=== PATIENT | male | born 1960 | race Caucasian/White ===

== ENCOUNTER → 2018-07-10 | Day surgery (SDC) | payer BC ==
[2018-07-08 12:16] LABS: BASOPHILS # (AUTO) 0.1 (0.0-0.1); BASOPHILS % 0.8 % (0.0-1.0); EOSINOPHILS # (AUTO) 0.1 (0.0-0.4); EOSINOPHILS % 1.3 % (0.0-6.0); HEMATOCRIT 43.2 % (38.2-49.6); HEMOGLOBIN 13.6 g/dL (14.0-18.0); LYMPHOCYTES % 32.6 % (18.0-39.1); MEAN CORPUSCULAR HEMOGLOBIN 28.5 pg (28-32); MEAN CORPUSCULAR HGB CONC 31.5 g/dL (31-35); MEAN CORPUSCULAR VOLUME 90.4 fL (81-99); MONOCYTES # (AUTO) 0.5 (0.2-0.8); MONOCYTES % 7.8 % (4.4-11.3); NEUTROPHILS # (AUTO) 3.4 (2.1-6.9); NEUTROPHILS % 57.2 % (38.7-80.0); PLATELET COUNT 227 x10e3/uL (140-360); RED BLOOD COUNT 4.78 x10e6/uL (4.3-5.7); RED CELL DISTRIBUTION WIDTH 15.1 % (11.7-14.4)
[2018-07-08 12:25] LABS: ANION GAP 16.6 mmol/L (8-16); BLOOD UREA NITROGEN 16 mg/dL (7-26); BUN/CREATININE RATIO 19 (6-25); CALCIUM 9.5 mg/dL (8.4-10.2); CARBON DIOXIDE 24 mmol/L (22-29); CHLORIDE 108 mmol/L (98-107); CREATININE, SERUM 0.86 mg/dL (0.72-1.25); EST GLOMERULAR FILTRATION RATE > 60 ML/MIN (60-); GLUCOSE 96 mg/dL (74-118); POTASSIUM 4.6 mmol/L (3.5-5.1); SODIUM 144 mmol/L (136-145)
[~2018-07-10] MED LIST: ASPIR 8181 MG PO; BELLADONNA/OPIUM 30 MG SUPP RC ONE; CALCIUM 500+D1 EACH PO; CEFTRIAXONE SOD 1 GM/NS 50 ML 50 ML IV ONE; DEXAMETHASONE SOD PHOS INJ 4 MG/ML VIAL ONE; DIGOXIN125 MCG PO; FENTANYL CITRATE/PF 100MCG/2 ML INJ ONE; FISH OIL 1,0001 EAC2 PO; FLOMAX0.4 MG PO; GLYCOPYRROLATE INJ 1MG/ 5 ML SYR ONE; IOPAMIDOL 610MG/1ML 300 MG/ML VIAL IV ONE; LIDOCAINE HCL 2% LOCAL INJ 5 ML SDV VIAL INJ ONE; METOPROLOL SUCC25 MG PO; MIDAZOLAM HCL 2 MG/2 ML VIAL ONE; MULTIVITAMINS1 EAC7 PO; ONDANSETRON HCL INJ 2MG/ML 2ML 2 MG/ML VIAL ONE; PROPOFOL IV EMULSION 10 MG/ML 20 ML VIAL ONE; SEVOFLURANE INHAL SOLN 250 ML PEN BTL ONE; SIMVASTATIN80 MG PO; VITAMIN E400 UNI1 PO; [UNRECOGNIZED DRUG - OTHER] PO
--- OUTSIDE RECORDS SUMMARY | 2018-07-10 06:28 | XMS REPORT | Clinical Summary ---
Author Author HU [email or web address] Address Unknown Phone Unavailable Care Team Providers Care Mechanical Insulator Name Role Phone Rah Gonzalez MD PCP Allergies No Known Allergies Medications End Date Status Medication Sig Dispensed Refills Start Date Active rivaroxaban (XARELTO) 20 Take by mouth 0 mg Tab tablet daily with dinner. Active simvastatin (ZOCOR) 40 MG Take 40 mg by 0 tablet mouth nightly. Active aspirin 81 MG chewable Take 81 mg by 0 tablet mouth daily. Active multivitamin capsule Take 1 0 capsule by mouth daily. Active calcium carbonate Take 1,200 mg 0 (OS-REMA) 600 mg calcium by mouth 2 (1,500 mg) Tab (two) times daily with breakfast and dinner . Active cholecalciferol, vitamin Take 5,000 0 D3, 5,000 unit Tab Units by mouth 2 (two) times daily. Active glucosamine-chondroitin Take 1 tablet 0 500-400 mg tablet by mouth 2 (two) times daily. Active omega-3 fatty acids-fish Take 2 g by 0 oil 340-1,000 mg Cap per mouth 2 (two) capsule times daily. Active metoprolol (LOPRESSOR) 50 Take 50 mg by 0 MG tablet mouth 2 (two) times daily. Active tamsulosin (FLOMAX) 0.4 Take 0.4 mg 0 mg Cap 24 hr capsule by mouth daily. Active potassium 99 mg Tab Take 1 tablet 0 by mouth daily. Active sulfamethoxazole-trimetho TK 1 T PO BID 0 prim (BACTRIM DS) 800-160 FOR 10 DAYS 9 mg per tablet Active DIGOX 125 mcg tablet ONLY FOR HR 0 <60. 8 12/12/2017 Discontinued amiodarone (PACERONE) 200 Take 400 mg 0 MG tablet by mouth 2 (two) times daily . 01/31/2018 Discontinued amiodarone (PACERONE) 200 Take 1 tablet 100 tablet 0 201 MG tablet (200 mg 8 total) by mouth 2 (two) times daily Take two pills (400mg) twice a day x 7 days, then one pill twice a day. Active Problems Problem Noted Date A-fib 01/30/2018 Atrial fibrillation 11/14/2017 Persistent atrial fibrillation 10/26/2017 Encounters Care Team Description Date Type Specialty Sanjay Case MD Gross hematuria (Primary Dx); Bilateral renal cysts; Dysuria; Morbidly obese (HCC) 06/24/2018 Emergency Emergency Medicine 06/24/2018 Travel Jamarcus Kirk MD EPS & PULMONARY VEIN ISOLATION (PVI) 01/30/2018 Surgery Gonzalo Armendariz MD 01/30/2018 Anesthesia Event Jamarcus Kirk MD Persistent atrial fibrillation (HCC) (Primary Dx) 01/30/2018 Hospital Cardiology - Encounter 01/31/2018 01/30/2018 Orders Only General Internal Medicine Nabil Flores AA 12/12/2017 Anesthesia Event Jamarcus Kirk MD CARDIOVERSION 12/12/2017 Surgery Jamarcus Kirk MD 12/12/2017 Hospital Encounter 12/12/2017 Orders Only General Internal Medicine Jamarcus Kirk MD Persistent atrial fibrillation (HCC) 11/22/2017 Hospital Radiology Encounter Jamarcus Kirk MD Persistent atrial fibrillation (HCC) (Primary Dx) 11/21/2017 Outside Orders Central Scheduling Jamarcus Kirk MD CARDIOVERSION 11/14/2017 Surgery Carlos Mejia Jr., MD 11/14/2017 Anesthesia Event Jamarcus Kirk MD Atrial fibrillation, unspecified type (HCC) 11/14/2017 Hospital Encounter Itzel Robertson MD 10/26/2017 Anesthesia Event Jamarcus Kirk MD EPS & PULMONARY VEIN (PVI) W/ CARTO & GENERAL ANESTHESIA 10/26/2017 Surgery Jamarcus Kirk MD Persistent atrial fibrillation (HCC) 10/26/2017 Hospital Cardiology - Encounter 10/27/2017 10/26/2017 Orders Only General Internal Medicine Jamarcus Kirk MD Persistent atrial fibrillation (HCC) 10/25/2017 Hospital Cardiology Encounter Jamarcus Kirk MD Paroxysmal atrial fibrillation (HCC) 10/25/2017 Hospital Radiology Encounter Jamarcus Kirk MD Paroxysmal atrial fibrillation (HCC) (Primary Dx); Persistent atrial fibrillation (HCC) 10/22/2017 Outside Orders Central Scheduling after 07/09/2017 Social History Date Tobacco Use Types Packs/Day Years Used Never Smoker Smokeless Tobacco: Never Used Alcohol Use Drinks/Week oz/Week Comments Yes rarely Sex Assigned at Date Recorded Not on file Industry Job Start Date Occupation Not on file Not on file Not on file Travel End Travel History Travel Start No recent travel history available. Last Filed Vital Signs Time Taken Vital Sign Reading 06/24/2018 5:42 PM [employer] Blood Pressure 130/65 06/24/2018 5:42 PM [employer] Pulse 53 06/24/2018 9:36 PM [employer] Temperature 36.9 C (98.4 F) 06/24/2018 5:42 PM [employer] Respiratory Rate 15 06/24/2018 5:42 PM [employer] Oxygen Saturation 100% 01/30/2018 11:45 PM CDT Inhaled Oxygen 21% Concentration 06/24/2018 5:42 PM [employer] Weight 126.1 kg (278 lb) 06/24/2018 5:42 PM [employer] Height 170.2 cm (5' 7") 06/24/2018 5:42 PM [employer] Body Mass Index 43.54 Plan of Treatment Not on file Procedures Comments Procedure Name Priority Date/Time Associated Diagnosis US RENAL COMPLETE STAT 06/24/2018 8:30 PM [employer] URINALYSIS W/ REFLEX STAT 06/24/2018 URINE CULTURE 6:19 PM [employer] RHYTHM STRIP - SCAN 05/02/2018 6:50 AM [employer] CARDIAC CATH REPORT - 02/01/2018 SCAN 9:00 AM CDT RHYTHM STRIP - SCAN 02/01/2018 9:00 AM CDT TRANSFUSION SERVICE 01/31/2018 REPORT - SCAN 6:02 PM CDT CBC (HEMOGRAM ONLY) Routine 01/31/2018 4:57 AM CDT CREATININE Routine 01/31/2018 4:57 AM CDT BUN Routine 01/31/2018 4:57 AM CDT ELECTROLYTE PANEL Routine 01/31/2018 4:57 AM CDT POCT-ACT Routine 01/30/2018 11:58 AM CDT POCT-ACT Routine 01/30/2018 11:12 AM CDT POCT-ACT Routine 01/30/2018 10:38 AM CDT POCT-ACT Routine 01/30/2018 10:11 AM CDT POCT-ACT Routine 01/30/2018 9:54 AM CDT POCT-ACT Routine 01/30/2018 9:36 AM CDT EPS & PULMONARY VEIN 01/30/2018 Persistent atrial ISOLATION (PVI) 7:30 AM CDT fibrillation (HCC) Case Notes (1) Case, 6T OP, PVI ABLATION W/G Anesthesia . 583mGy ECG 12-LEAD Routine 01/30/2018 6:06 AM CDT Procedure Note - Interface, External Ris In - 01/30/2018 1:32 PM CDT Ventricula r Rate 101 BPM Atrial Rate 92 BPM QRS Duration 104 ms Q-T Interval 400 ms QTC Calculatio n(Bazett) 518 ms R [place] 19 degrees T [place] 45 degrees Undetermi mare rhythm Otherwise normal ECG When compared with ECG of 8 12:45, Current undetermin ed rhythm precludes rhythm comparison , needs review QT has lengthened ECG 12-LEAD Routine 01/30/2018 6:06 AM CDT CBC W/PLT COUNT & AUTO Routine 01/30/2018 DIFFERENTIAL 5:40 AM CDT CBC W/PLT COUNT & AUTO Routine 01/30/2018 DIFFERENTIAL 5:40 AM CDT TYPE AND SCREEN, Routine 01/30/2018 AUTOMATED 5:40 AM CDT CBC W/PLT COUNT & AUTO Routine 01/30/2018 DIFFERENTIAL 5:40 AM CDT MAGNESIUM Routine 01/30/2018 5:40 AM CDT BASIC METABOLIC PANEL (7) Routine 01/30/2018 5:40 AM CDT APTT Routine 01/30/2018 5:40 AM CDT PROTHROMBIN TIME/INR Routine 01/30/2018 5:40 AM CDT CBC W/PLT COUNT & AUTO Routine 01/30/2018 DIFFERENTIAL 5:40 AM CDT COMPREHENSIVE METABOLIC Routine 01/30/2018 PANEL 5:40 AM CDT HEPATIC FUNCTION PANEL Routine 01/30/2018 5:40 AM CDT ECG 12-LEAD Routine 12/12/2017 12:45 PM CDT Procedure Note - Interface, External Ris In - 12/12/2017 1:55 PM CDT Ventricula r Rate 64 BPM Atrial Rate 64 BPM QRS Duration 100 ms Q-T Interval 438 ms QTC Calculatio n(Bazett) 451 ms P [place] 72 degrees R [place] -12 degrees T [place] 27 degrees Sinus rhythm with marked sinus arrhythmia Otherwise normal ECG When compared with ECG of 8 12:26, Sinus rhythm has replaced Atrial flutter Vent. rate has decreased BY 36 BPM QT has shortened ECG 12-LEAD Routine 12/12/2017 12:45 PM CDT ECG 12-LEAD Routine 12/12/2017 12:26 PM CDT ECG 12-LEAD Routine 12/12/2017 12:26 PM CDT Procedure Note - Interface, External Ris In - 12/12/2017 1:55 PM CDT Ventricula r Rate 100 BPM Atrial Rate 234 BPM QRS Duration 96 ms Q-T Interval 402 ms QTC Calculatio n(Bazett) 518 ms R [place] -22 degrees T [place] 35 degrees Atrial flutter with variable A-V block Prolonged QT Abnormal ECG When compared with ECG of 8 08:52, Atrial flutter has replaced Sinus rhythm Vent. rate has increased BY 39 BPM QT has lengthened PROTHROMBIN TIME/INR STAT 12/12/2017 11:39 AM CDT HEPATIC FUNCTION PANEL STAT 12/12/2017 11:39 AM CDT COMPREHENSIVE METABOLIC STAT 12/12/2017 PANEL 11:39 AM CDT CBC (HEMOGRAM ONLY) STAT 12/12/2017 11:39 AM CDT APTT STAT 12/12/2017 11:39 AM CDT CARDIOVERSION 12/12/2017 Atrial fibrillation, 11:35 AM CDT persistent (HCC) Case Notes CARDIOVERS ION ALEXIA Kendrick CALLED BACK AND STATES NO MAC ANESTHESIA CT HEART WITH/WITHOUT Routine 11/22/2017 GATING & 3D 8:42 AM CDT BASIC METABOLIC PANEL (7) Routine 11/22/2017 Persistent atrial 7:03 AM CDT fibrillation (HCC) CBC (HEMOGRAM ONLY) Routine 11/22/2017 Persistent atrial 7:03 AM CDT fibrillation (HCC) CARDIOVERSION 11/14/2017 Atrial fibrillation, 11:05 AM CDT persistent (HCC) Case Notes POP6 MAC ANESTHESIA ECG 12-LEAD Routine 11/14/2017 8:52 AM CDT ECG 12-LEAD Routine 11/14/2017 8:52 AM CDT Procedure Note - Interface, External Ris In - 11/14/2017 9:56 AM CDT Ventricula r Rate 61 BPM Atrial Rate 61 BPM P-R Interval 188 ms QRS Duration 102 ms Q-T Interval 424 ms QTC Calculatio n(Bazett) 426 ms P [place] 32 degrees R [place] 13 degrees T [place] 30 degrees Normal sinus rhythm Normal ECG When compared with ECG of 8 08:40, Sinus rhythm has replaced Atrial fibrillati on Vent. rate has decreased BY 35 BPM ECG 12-LEAD Routine 11/14/2017 8:40 AM CDT CBC W/PLT COUNT & AUTO Routine 11/14/2017 DIFFERENTIAL 8:12 AM CDT APTT Routine 11/14/2017 8:12 AM CDT PROTHROMBIN TIME/INR Routine 11/14/2017 8:12 AM CDT COMPREHENSIVE METABOLIC Routine 11/14/2017 PANEL 8:12 AM CDT MAGNESIUM Routine 11/14/2017 8:12 AM CDT CBC W/PLT COUNT & AUTO Routine 11/14/2017 DIFFERENTIAL 8:12 AM CDT RHYTHM STRIP - SCAN 10/31/2017 10:22 AM CDT CARDIAC CATH REPORT - 10/31/2017 SCAN 7:21 AM CDT POCT-ACT Routine 10/26/2017 12:38 PM CDT POCT-ACT Routine 10/26/2017 11:23 AM CDT POCT-ACT Routine 10/26/2017 11:08 AM CDT POCT-ACT Routine 10/26/2017 10:52 AM CDT POCT-ACT Routine 10/26/2017 10:36 AM CDT POCT-ACT Routine 10/26/2017 10:25 AM CDT POCT-ACT Routine 10/26/2017 10:11 AM CDT POCT-ACT Routine 10/26/2017 9:55 AM CDT EPS & PULMONARY VEIN 10/26/2017 Atrial fibrillation, (PVI) W/ CARTO & GENERAL 7:30 AM CDT persistent (HCC) ANESTHESIA Case Notes 1CASE POP6 CV/ANES. PER OFFICE ECG 12-LEAD Routine 10/26/2017 6:33 AM CDT Procedure Note - Interface, External Ris In - 10/26/2017 6:38 AM CDT Ventricula r Rate 79 BPM Atrial Rate 208 BPM QRS Duration 102 ms Q-T Interval 418 ms QTC Calculatio n(Bazett) 479 ms R [place] -3 degrees T [place] 5 degrees Atrial fibrillati on Abnormal ECG No previous ECGs available ECG 12-LEAD Routine 10/26/2017 6:33 AM CDT CBC W/PLT COUNT & AUTO STAT 10/26/2017 DIFFERENTIAL 5:51 AM CDT PROTHROMBIN TIME/INR STAT 10/26/2017 5:51 AM CDT MAGNESIUM STAT 10/26/2017 5:51 AM CDT COMPREHENSIVE METABOLIC STAT 10/26/2017 PANEL 5:51 AM CDT CBC W/PLT COUNT & AUTO STAT 10/26/2017 DIFFERENTIAL 5:51 AM CDT APTT STAT 10/26/2017 5:51 AM CDT ECHOCARDIOGRAM REPORT - 10/25/2017 SCAN 1:51 PM CDT TRANSESOPHAGEAL ECHO Routine 10/25/2017 Persistent atrial 12:17 PM CDT fibrillation (HCC) COLOR-FLOW MAPPING Routine 10/25/2017 Persistent atrial 11:27 AM CDT fibrillation (HCC) CONT WAVE PULSED DOPPLER Routine 10/25/2017 Persistent atrial 11:27 AM CDT fibrillation (HCC) CT HEART WITH/WITHOUT Routine 10/25/2017 Paroxysmal atrial GATING & 3D 11:18 AM CDT fibrillation (HCC) PROTHROMBIN TIME/INR Routine 10/25/2017 Persistent atrial 8:33 AM CDT fibrillation (HCC) BASIC METABOLIC PANEL (7) Routine 10/25/2017 Persistent atrial 8:33 AM CDT fibrillation (HCC) CBC (HEMOGRAM ONLY) Routine 10/25/2017 Persistent atrial 8:33 AM CDT fibrillation (HCC) after 07/09/2017 Results * US renal complete (06/24/2018 8:30 PM [employer]) Narrative Performed At FINAL REPORT [facility] Ultrasound of the Kidneys, 06/24/2018. Clinical History: Hematuria. Discussion: Sonographic evaluation of the kidneys is performed. Right kidney:12.6 cm in length, normal in size, with cortical thickness of 1.5 cm.Normal cortical echogenicity. An oval anechoic structure is present centrally measuring 1.2 x 0.9 x 1.2 cm. No mass. No shadowing calculus.No hydronephrosis. Left kidney: 13.7 cm in length, normal in size, with cortical thickness of 1.5 cm.Normal cortical echogenicity. An oval anechoic structure is present centrally measuring 2.2 x 1.7 x 2.4 cm. No mass. No shadowing calculus.No hydronephrosis. Limited Doppler evaluation demonstrates normal color Doppler flow within bilateral renal darlene. Fluid:No perinephric fluid. Bladder:Unremarkable. IMPRESSION: Simple bilateral renal cysts. No evidence of nephrolithiasis or hydronephrosis. Signed: Jakob Calvo MD Report Verified Date/Time:06/24/2018 20:53:40 Reading Location: [facility] C013 Consult Reading Room Procedure Note Interface, External Ris In - 06/24/2018 8:55 PM [employer] FINAL REPORT Ultrasound of the Kidneys, 06/24/2018. Clinical History: Hematuria. Discussion: Sonographic evaluation of the kidneys is performed. Right kidney: 12.6 cm in length, normal in size, with cortical thickness of 1.5 cm. Normal cortical echogenicity. An oval anechoic structure is present centrally measuring 1.2 x 0.9 x 1.2 cm. No mass. No shadowing calculus. No hydronephrosis. Left kidney: 13.7 cm in length, normal in size, with cortical thickness of 1.5 cm. Normal cortical echogenicity. An oval anechoic structure is present centrally measuring 2.2 x 1.7 x 2.4 cm. No mass. No shadowing calculus. No hydronephrosis. Limited Doppler evaluation demonstrates normal color Doppler flow within bilateral renal darlene. Fluid: No perinephric fluid. Bladder: Unremarkable. IMPRESSION: Simple bilateral renal cysts. No evidence of nephrolithiasis or hydronephrosis. Signed: Jakob Calvo MD Report Verified Date/Time: 06/24/2018 20:53:40 Reading Location: [facility] [id number] Consult Reading Room Performing Organization Address City/[facility] Phone Number GE RIS * Urinalysis w/Microscopic + Reflex to Culture (06/24/2018 6:19 PM [employer]) Color, UA [place] [facility] Clarity, UA Clear [facility] Specific [place], UA 1.003 1.001 - 1.035 [facility] pH, UA 6.5 5.0 - 8.0 [facility] Protein, UA 70 mg/dL (A) Negative [facility] Glucose, UA Negative Negative [facility] Ketones, UA Negative Negative [facility] Bilirubin, UA Negative Negative [facility] Blood, UA Large (A) Negative [facility] Nitrite, UA Negative Negative [facility] Leukocytes, UA Small (A) Negative [facility] Urobilinogen, UA 0.2 0.2 - 1.0 mg/dL [facility] RBC, UA 257 /HPF [facility] WBC, UA 1 /HPF [facility] Specimen Source [facility] Specimen Urine - Urine, Clean Catch Performing Organization Address [facility]/Zipcode Phone Number [facility] [address] [phone] [facility]ICAL [facility]ENTER * RHYTHM STRIP - SCAN (05/02/2018 6:50 AM [employer]) Only the most recent of 3 results within the time period is included. Narrative Performed At * CARDIAC CATH REPORT - SCAN (02/01/2018 9:00 AM CDT) Narrative Performed At * TRANSFUSION SERVICE REPORT - SCAN (01/31/2018 6:02 PM CDT) Narrative Performed At * CBC (Hemogram only) (01/31/2018 4:57 AM CDT) Only the most recent of 4 results within the time period is included. WBC 8.0 3.5 - 10.5 K/L [facility] RBC 3.48 (L) 4.63 - 6.08 M/L [facility] Hemoglobin 10.4 (L) 13.7 - 17.5 GM/DL [facility] Hematocrit 33.3 (L) 40.1 - 51.0 % [facility] MCV 95.7 (H) 79.0 - 92.2 fL [facility] MCH 29.9 25.7 - 32.2 pg [facility] MCHC 31.2 (L) 32.3 - 36.5 GM/DL [facility] RDW 15.6 (H) 11.6 - 14.4 % [facility] Platelets 177 150 - 450 K/CU MM [facility] MPV 12.4 9.4 - 12.4 fL [facility] nRBC 0 0 - 0 /100 WBC [facility] Specimen Blood Performing Organization Address City/State/Zipcode Phone Number [address] [address] [facility] * BUN (01/31/2018 4:57 AM CDT) BUN 17 7 - 21 mg/dL [facility] Specimen Blood Performing Organization Address City/[facility]/Zipcode Phone Number [address] [address] [facility] * Creatinine (01/31/2018 4:57 AM CDT) Creatinine 0.95 0.57 - 1.25 mg/dL [facility] EGFR 81Comment: ESTIMATED GFR IS mL/min/1.73 sq m [facility] NOT ACCURATE CREATININE [facility] CLEARANCE IN PREDICTING GLOMERULAR FILTRATION RATE. ESTIMATED GFR IS NOT APPLICABLE FOR DIALYSIS PATIENTS. Specimen Blood Performing Organization Address City/State/Zipcode Phone Number [address] * Electrolytes (01/31/2018 4:57 AM CDT) Sodium 138 136 - 145 meq/L [facility] Potassium 3.8 3.5 - 5.1 meq/L [facility] Chloride 109 (H) 98 - 107 meq/L [facility] CO2 22 22 - 29 meq/L [facility] Specimen Blood Performing Organization Address City/[facility] Phone Number [place] [phone] * POC ACTIVATED CLOTTING TIME (01/30/2018 11:58 AM CDT) Only the most recent of 14 results within the time period is included. Activated Clotting Time 158Comment: TESTED AT [facility] sec [address] Specimen Blood Performing Organization Address City/[facility] Phone Number [address] * ECG 12 lead (01/30/2018 6:06 AM CDT) Only the most recent of 6 results within the time period is included. Narrative Performed At Ventricular Rate 101 BPM GE MUSE Atrial Rate 92 BPM QRS Duration 104 ms Q-T Interval 400 ms QTC Calculation(Bazett) 518 ms R [place] 19 degrees T [place] 45 degrees Suspect sinus tachycardia Otherwise normal ECG When compared with ECG of 12-DEC-2017 12:45, rate increased QT has lengthened Confirmed by MD YORDAN, MARILYN Gibbons ([id number]) on 01/31/2018 6:13:13 AM Procedure Note Interface, External Ris In - 01/31/2018 6:13 AM CDT Ventricular Rate 101 BPM Atrial Rate 92 BPM QRS Duration 104 ms Q-T Interval 400 ms QTC Calculation(Bazett) 518 ms R [place] 19 degrees T [place] 45 degrees Suspect sinus tachycardia Otherwise normal ECG When compared with ECG of 12-DEC-2017 12:45, rate increased QT has lengthened Confirmed by MD YORDAN, MARILYN Gibbons ([id number]) on 01/31/2018 6:13:13 AM Performing Organization Address City/State/Zipcode Phone Number GE MUSE * Type and screen, automated (01/30/2018 5:40 AM CDT) ABO/RH AUTOMATED (BEAKER) AB POSITIVE [facility] Ab Scrn NEGATIVE [facility] Specimen Blood Performing Organization Address City/[facility]/Zipcode Phone Number [facility] [address] [place] [address] MEDICAL CENTER * CBC with platelet count + automated diff (01/30/2018 5:40 AM CDT) Only the most recent of 4 results within the time period is included. WBC 6.3 3.5 - 10.5 K/L [facility] RBC 4.26 (L) 4.63 - 6.08 M/L [facility] Hemoglobin 12.5 (L) 13.7 - 17.5 GM/DL [facility] Hematocrit 40.1 40.1 - 51.0 % [facility] MCV 94.1 (H) 79.0 - 92.2 fL [facility] MCH 29.3 25.7 - 32.2 pg [facility] MCHC 31.2 (L) 32.3 - 36.5 GM/DL [facility] RDW 15.2 (H) 11.6 - 14.4 % [facility] Platelets 211 150 - 450 K/CU MM [facility] MPV 11.3 9.4 - 12.4 fL [facility] nRBC 0 0 - 0 /100 WBC [facility] % Neutros 62 % [facility] % Lymphs 26 % [facility] % Monos 10 % [facility] % Eos 1 % [facility] % Baso 1 % [facility] # Neutros 3.93 1.78 - 5.38 K/L [facility] # Lymphs 1.61 1.32 - 3.57 K/L [facility] # Monos 0.60 0.30 - 0.82 K/L [facility] # Eos 0.09 0.04 - 0.54 K/L [facility] # Baso 0.06 0.01 - 0.08 K/L [facility] Immature 0 0 - 1 % [facility] Granulocytes-Relative [facility] Specimen Blood Performing Organization Address City/[facility]/[place] [address] [phone] [place] [address] * aPTT (01/30/2018 5:40 AM CDT) Only the most recent of 4 results within the time period is included. PTT 33.7 22.5 - 36.0 seconds [facility] Specimen Blood Narrative Performed At Within 24 hours, if on Coumadin [facility] Performing Organization Address City/[facility]/[place] [address] [facility] * Prothrombin time/INR (01/30/2018 5:40 AM CDT) Only the most recent of 5 results within the time period is included. Protime 25.3 (H) 11.7 - 14.7 seconds [facility] INR 2.3 <=5.9 [facility] Specimen Blood Narrative Performed At RECOMMENDED COUMADIN/WARFARIN INR THERAPY RANGES [facility] STANDARD DOSE: 2.0 - 3.0 Includes: PROPHYLAXIS for venous thrombosis, [facility] systemic embolization; TREATMENT for venous thrombosis and/or pulmonary embolus. HIGH RISK: Target INR is 2.5-3.5 for patients with mechanical heart valves. Within 24 hours, if on Coumadin Performing Organization Address City/State/[place] [address] [phone] [place] [address] * Magnesium (01/30/2018 5:40 AM CDT) Only the most recent of 3 results within the time period is included. Magnesium 2.2 1.6 - 2.6 mg/dL [facility] Specimen Blood Performing Organization Address [facility] [place] [address] [phone] * Hepatic function panel (01/30/2018 5:40 AM CDT) Only the most recent of 2 results within the time period is included. Protein, Total 6.7 6.0 - 8.3 gm/dL [facility] Albumin 4.0 3.5 - 5.0 g/dL [facility] Total Bilirubin 0.6 0.2 - 1.2 mg/dL [facility] Bilirubin, Direct 0.3 0.1 - 0.5 mg/dL [facility] Alkaline Phosphatase 55 40 - 150 U/L [facility] AST 18 5 - 34 U/L [facility] ALT 20 6 - 55 U/L [facility] Specimen Blood Performing Organization Address City/[facility] Phone Number [address] [address] [phone] [place] [address] * Comprehensive metabolic panel (01/30/2018 5:40 AM CDT) Only the most recent of 4 results within the time period is included. Protein, Total 6.7 6.0 - 8.3 gm/dL [facility] Albumin 4.0 3.5 - 5.0 g/dL [facility] Alkaline Phosphatase 55 40 - 150 U/L [facility] Total Bilirubin 0.6 0.2 - 1.2 mg/dL [facility] Sodium 141 136 - 145 meq/L [facility] Potassium 4.1 3.5 - 5.1 meq/L [facility] Chloride 109 (H) 98 - 107 meq/L [facility] CO2 24 22 - 29 meq/L [facility] BUN 19 7 - 21 mg/dL [facility] Creatinine 0.92 0.57 - 1.25 mg/dL [facility] Glucose 95 70 - 105 mg/dL [facility] Calcium 9.4 8.4 - 10.2 mg/dL [facility] AST 18 5 - 34 U/L [facility] ALT 20 6 - 55 U/L [facility] EGFR 84Comment: ESTIMATED GFR IS mL/min/1.73 sq m [facility] NOT ACCURATE CREATININE [facility] CLEARANCE IN PREDICTING GLOMERULAR FILTRATION RATE. ESTIMATED GFR IS NOT APPLICABLE FOR DIALYSIS PATIENTS. Specimen Blood Performing Organization Address City/State/Zipcode Phone Number [facility] [address] [place] [address] MEDICAL CENTER * Basic metabolic panel (01/30/2018 5:40 AM CDT) Only the most recent of 3 results within the time period is included. Sodium 141 136 - 145 meq/L [facility] Potassium 4.1 3.5 - 5.1 meq/L [facility] Chloride 109 (H) 98 - 107 meq/L [facility] CO2 24 22 - 29 meq/L [facility] BUN 19 7 - 21 mg/dL [facility] Creatinine 0.92 0.57 - 1.25 mg/dL [facility] Glucose 95 70 - 105 mg/dL [facility] Calcium 9.4 8.4 - 10.2 mg/dL [facility] EGFR 84Comment: ESTIMATED GFR IS mL/min/1.73 sq m [facility] NOT ACCURATE CREATININE [facility] CLEARANCE IN PREDICTING GLOMERULAR FILTRATION RATE. ESTIMATED GFR IS NOT APPLICABLE FOR DIALYSIS PATIENTS. Specimen Blood Performing Organization Address City/State/Zipcode Phone Number [facility] [address] [place] [address] [facility] * CT heart without & with gating & 3d (11/22/2017 8:42 AM CDT) Only the most recent of 2 results within the time period is included. Narrative Performed At Addendum Begins [facility] REPORT STATUS:A ADDENDUM: I agree with the nonvascular findings as reported by Dr. Sanchez. Signed: Kenney Morales MD Report Verified Date/Time:11/22/2017 15:20:54 Reading Location: [place] [address] Angio Body Reading Room Addendum Ends FINAL REPORT CT angiography of the pulmonary veins, 22 November 2017 INDICATION: This is a 57years old malewith history of atrial fibrillation presented here for pulmonary vein ostial mapping. This study is performed in an attempt to avoid invasive procedure. TECHNIQUE:Spiral acquisition during intravenous contrast administration using a yetu multidetector multislice cardiac CT scanner without prospective ECG triggering.Multiplanar reconstructions were performed interactively by the interpreting physician using an independent ([employer]) workstation. Please refer to the contrast sheet scanned in the EPIC system for the amount and route of contrast given. This exam was performed according to our departmental dose-optimisation programme, which includes automated exposure control, adjustment of the mA and/or kV according to patient size and/or use of iterative reconstruction technique. Dose modulation, iterative reconstruction, and/or weight based adjustment of the mA/kV was utilized to reduce the radiation dose to as low as reasonably achievable. FINDINGS: VASCULAR: The pericardium appears unremarkable. The central pulmonary artery is prominent with no evidence of central pulmonary artery embolism. Correlate appropriate aetiology. Ectasia is seen in the mid ascending thoracic aorta measure 3.9 x 3.9 cm in diameter. The aortic root is normal in calibre. No aneurysmal dilation is seen in the entire thoracic aorta. There is no evidence for acute aortic pathology. The arch vessel branching pattern is normal, and the origins of the arch branch vessels are all widely patent. The cardiac chambers demonstrate normal atrioventricular and ventriculoarterial concordance, and systemic and pulmonary venous return. The left ventricle is normal in size, and no abnormal mass is identified. The coronary artery origins are normal. Coronary artery calcification is seen in the LAD territory. Left atrial enlargement is identified. No thrombus is visualized in the left atrial appendage. Pulmonary vein morphology is normal with pairs of pulmonary veins on each side of the left atrium. There is no evidence for pulmonary vein stenosis. Quantitative pulmonary vein ostial mapping (measured utilizing MPR analysis) is as follows: Pulmonary veinMajor axisMinor axisCross-sectional area * Right upper 20 mm 16 mm2.5 cm2 Right middle 10 mm 10 mm0.9 cm2 Right lower 16 mm 14 mm1.8 cm2 Left upper17 mm 16 mm2.3 cm2 Left lower 19 mm 18 mm2.5 cm2 NON-VASCULAR: The visualised thyroid gland appears grossly unremarkable. The chest wall and mediastinum appears normal. No significant adenopathy is seen in the mediastinum, except for some small lymph nodes, considered nonspecific in nature. In the lung windows, no obvious endobronchial lesion is seen, and no pleural effusion is identified. No suspicious pulmonary nodule is seen. Limited images of the upper abdomen reveals no gross abnormality. Suture material is identified along the stomach indicating prior GI surgery. No acute bony pathology is seen except for the presence of some degenerative changes. IMPRESSIONS: 1.The left atrium is enlarged.No thrombus is visualized in the left atrial appendage. Scattered calcification is seen in the LAD territory. 2.Pulmonary vein morphology is normal with pairs of pulmonary veins bilaterally. A right middle lobe pulmonary vein is identified. There is no evidence for pulmonary vein stenosis. Quantitative pulmonary vein ostial mapping is as noted above. The images is somewhat noisy. Overall, no significant interval change is seen when compared to prior examination. 3.Mild ectasia is seen in the mid ascending thoracic aorta as described above. No aneurysmal dilation is identified. 4.No acute pulmonary pathology. 5.Other findings as described above. 6.An addendum will be dictated regarding the non-vascular findings by the Portfolio Assistant Radiologist. Signed: Javier Sanchez MD Report Verified Date/Time:11/22/2017 09:51:44 Reading Location: [place] [address] Cardiology MRI Procedure Note Interface, External Ris In - 11/22/2017 3:23 PM CDT Addendum Begins REPORT STATUS:A ADDENDUM: I agree with the nonvascular findings as reported by Dr. Sanchez. Signed: Kenney Morales MD Report Verified Date/Time: 11/22/2017 15:20:54 Reading Location: [place] [address] Angio Body Reading Room Addendum Ends FINAL REPORT CT angiography of the pulmonary veins, 22 November 2017 INDICATION: This is a 57 years old male with history of atrial fibrillation presented here for pulmonary vein ostial mapping. This study is performed in an attempt to avoid invasive procedure. TECHNIQUE: Spiral acquisition during intravenous contrast administration using a GE multidetector multislice cardiac CT scanner without prospective ECG triggering. Multiplanar reconstructions were performed interactively by the interpreting physician using an independent ([employer]self) workstation. Please refer to the contrast sheet scanned in the [email or web address] system for the amount and route of contrast given. This exam was performed according to our departmental dose-optimisation programme, which includes automated exposure control, adjustment of the mA and/or kV according to patient size and/or use of iterative reconstruction technique. Dose modulation, iterative reconstruction, and/or weight based adjustment of the mA/kV was utilized to reduce the radiation dose to as low as reasonably achievable. FINDINGS: VASCULAR: The pericardium appears unremarkable. The central pulmonary artery is prominent with no evidence of central pulmonary artery embolism. Correlate appropriate aetiology. Ectasia is seen in the mid ascending thoracic aorta measure 3.9 x 3.9 cm in diameter. The aortic root is normal in calibre. No aneurysmal dilation is seen in the entire thoracic aorta. There is no evidence for acute aortic pathology. The arch vessel branching pattern is normal, and the origins of the arch branch vessels are all widely patent. The cardiac chambers demonstrate normal atrioventricular and ventriculoarterial concordance, and systemic and pulmonary venous return. The left ventricle is normal in size, and no abnormal mass is identified. The coronary artery origins are normal. Coronary artery calcification is seen in the LAD territory. Left atrial enlargement is identified. No thrombus is visualized in the left atrial appendage. Pulmonary vein morphology is normal with pairs of pulmonary veins on each side of the left atrium. There is no evidence for pulmonary vein stenosis. Quantitative pulmonary vein ostial mapping (measured utilizing MPR analysis) is as follows: Pulmonary vein Major axis Minor axis Cross-sectional area * Right upper 20 mm 16 mm 2.5 cm2 Right middle 10 mm 10 mm 0.9 cm2 Right lower 16 mm 14 mm 1.8 cm2 Left upper 17 mm 16 mm 2.3 cm2 Left lower 19 mm 18 mm 2.5 cm2 NON-VASCULAR: The visualised thyroid gland appears grossly unremarkable. The chest wall and mediastinum appears normal. No significant adenopathy is seen in the mediastinum, except for some small lymph nodes, considered nonspecific in nature. In the lung windows, no obvious endobronchial lesion is seen, and no pleural effusion is identified. No suspicious pulmonary nodule is seen. Limited images of the upper abdomen reveals no gross abnormality. Suture material is identified along the stomach indicating prior GI surgery. No acute bony pathology is seen except for the presence of some degenerative changes. IMPRESSIONS: 1. The left atrium is enlarged. No thrombus is visualized in the left atrial appendage. Scattered calcification is seen in the LAD territory. 2. Pulmonary vein morphology is normal with pairs of pulmonary veins bilaterally. A right middle lobe pulmonary vein is identified. There is no evidence for pulmonary vein stenosis. Quantitative pulmonary vein ostial mapping is as noted above. The images is somewhat noisy. Overall, no significant interval change is seen when compared to prior examination. 3. Mild ectasia is seen in the mid ascending thoracic aorta as described above. No aneurysmal dilation is identified. 4. No acute pulmonary pathology. 5. Other findings as described above. 6. An addendum will be dictated regarding the non-vascular findings by the Portfolio Assistant Radiologist. Signed: Javier Sanchez MD Report Verified Date/Time: 11/22/2017 09:51:44 Reading Location: [place] [address] Cardiology MRI Performing Organization Address City/State/Zipcode Phone Number [facility] * CARDIAC CATH REPORT - SCAN (10/31/2017 7:21 AM CDT) Narrative Performed At * ECHOCARDIOGRAM REPORT - SCAN (10/25/2017 1:51 PM CDT) Narrative Performed At * Transesophageal echo (10/25/2017 12:17 PM CDT) Ejection Fraction [facility] CPA Narrative Performed At Transesophageal Echocardiography Report (AFSANEH) [facility] Demographics [employer] [facility] Patient Name SONIA VELA Date of Study 10/25/2017 CLEM [id number] Male Visit Number [id number] Room Number Number Date of Birth1960Referring Physician Yelena Stein Age57 year(s)Assurance Engineer Interpreting Larry Berkowitz MD Physician Procedure Type of Study AFSANEH procedure:TRANSESOPHAGEAL ECHO (Routine) Indications:Atrial fibrillation. Clinical History Atrial Fibrillation/flutter Arrhythmias/Palpitations Fatigue Obesity Sleep Apnea Hyperlipidemia Contrast Medium: Bubble Study. Height: 68 inches Weight: 127.01 kg (280 lbs) BSA: 2.36 m^2 BMI: 42.57 kg/m^2 HR: 85 bpm BP: 114/80 mmHg O2 Saturation: 100 % AFSANEH Performed By: the attending and the contact lens assistant Type of Anesthesia: Moderate sedation Summary The left ventricle is normal in size, wall thickness, and contractility. LA is enlarged but severity assessment is unreliable due to known AFSANEH sector size limitation. LA appendage thrombus is not present . LA appendage velocities are normal range (>40 cm/s) . RV chamber size is upper limit of normal . Previous Study No prior studies available for comparison. Signature Findings Technical Quality: Technically adequate exam. Rhythm/BPIrregular rhythm during the exam. Left Ventricle The left ventricle is normal in size, wall thickness, and contractility. Left AtriumLA is enlarged but severity assessment is unreliable due to known AFSANEH sector size limitation. LA appendage thrombus is not present . LA appendage velocities are normal range (>40 cm/s) . Right VentricleRV chamber size is upper limit of normal . Right Atrium RA size is normal. Atrial SeptumIV saline contrast injection was negative for a PFO (patent foramen ovale) at rest and post Valsalva . Aortic Valve Normal AoV structure and function. Mitral Valve Normal MV structure and function. Trace mitral regurgitation. Tricuspid ValveNormal TV structure and function. Pulmonic Valve Normal PV structure appears normal by available views. AortaAortic root size (SInus of Valsalva diameter) is normal . Proximal ascending aorta size is normal . There is no evidence of aortic plaque. PericardiumNo significant pericardial effusion is visualized. IVC/SVC/PA/PV/PleuralThe pulmonary veins appear normal. Chambers/Structures Aorta Ao Root S of Li.: 3.61 cmAscending Aorta: 3.72 cm Procedure Note Interface, External Ris In - 10/25/2017 1:16 PM CDT Transesophageal Echocardiography Report (AFSANEH) Demographics Patient Name SONIA VELA Date of Study 10/25/2017 CLEM Gender Male Visit Number [id number] Race Unknown Room Number Number Date of 1960 Referring Physician Yelena Stein Age 57 year(s) Assurance Engineer Interpreting Larry Berkowitz MD Physician Procedure Type of Study AFSANEH procedure:TRANSESOPHAGEAL ECHO (Routine) Indications:Atrial fibrillation. Clinical History Atrial Fibrillation/flutter Arrhythmias/Palpitations Fatigue Obesity Sleep Apnea Hyperlipidemia Contrast Medium: Bubble Study. Height: 68 inches Weight: 127.01 kg (280 lbs) BSA: 2.36 m^2 BMI: 42.57 kg/m^2 HR: 85 bpm BP: 114/80 mmHg O2 Saturation: 100 % AFSANEH Performed By: the attending and the contact lens assistant Type of Anesthesia: Moderate sedation Summary The left ventricle is normal in size, wall thickness, and contractility. LA is enlarged but severity assessment is unreliable due to known AFSANEH sector size limitation. LA appendage thrombus is not present . LA appendage velocities are normal range (>40 cm/s) . RV chamber size is upper limit of normal . Previous Study No prior studies available for comparison. Signature Findings Technical Quality: Technically adequate exam. Rhythm/BP Irregular rhythm during the exam. Left Ventricle The left ventricle is normal in size, wall thickness, and contractility. Left Atrium LA is enlarged but severity assessment is unreliable due to known AFSANEH sector size limitation. LA appendage thrombus is not present . LA appendage velocities are normal range (>40 cm/s) . Right Ventricle RV chamber size is upper limit of normal . Right Atrium RA size is normal. Atrial Septum IV saline contrast injection was negative for a PFO (patent foramen ovale) at rest and post Valsalva . Aortic Valve Normal AoV structure and function. Mitral Valve Normal MV structure and function. Trace mitral regurgitation. Tricuspid Valve Normal TV structure and function. Pulmonic Valve Normal PV structure appears normal by available views. Aorta Aortic root size (SInus of Valsalva diameter) is normal . Proximal ascending aorta size is normal . There is no evidence of aortic plaque. Pericardium No significant pericardial effusion is visualized. IVC/SVC/PA/PV/Pleural The pulmonary veins appear normal. Chambers/Structures Aorta Ao Root S of Li.: 3.61 cm Ascending Aorta: 3.72 cm Performing Organization Address City/State/Zipcode Phone Number [facility] after 07/09/2017 Insurance Payer Benefit Subscriber ID Type Phone Address Plan / Group [employer] BCBS ADV xxxxxxxxxxxx [phone] [address] [place] [address] EXCHANGE Advance Directives For more information, please contact: [facility] [address] [place] [address] Date Inactivated Comments Code Status Date Activated 01/31/2018 12:23 PM Full Code 01/30/2018 1:35 PM This code status was determined by: Patient 01/30/2018 1:35 PM Full Code 01/30/2018 5:31 AM This code status was determined by: Patient 01/30/2018 5:31 AM Full Code 01/30/2018 5:31 AM This code status was determined by: Patient 12/12/2017 5:09 PM Full Code 12/12/2017 10:47 AM This code status was determined by: Patient 11/14/2017 1:14 PM Full Code 11/14/2017 7:34 AM This code status was determined by: Patient
--- OUTSIDE RECORDS SUMMARY | 2018-07-10 06:30 | XMS REPORT | CCD ---
Author Author Auto Generated Organization [facility] Address Unknown Phone Unavailable Care Team Providers Care [facility] [employer] Name Role Phone Lilliam Tellez RP Allergies, Adverse Reactions, Alerts Substance Reaction Status NKDA Active Problem List Condition Effective Dates Status Chest pain Active Pain Active Medications Medication Instructions Start Date End Date Status morphine Sulfate 2 mg, 1 mL, Route: IVP, Drug form: 12/07/2011 12/07/2011 Discontinued INJ, Q5Min, PRN Pain Score 4-6, Start date: 12/07/11 13:01:00, Duration: 8 doses or times, Stop date: 12/08/11 0:00:00 naloxone 0.04 mg, 0.1 mL, Route: IVP, Drug 12/07/2011 12/07/2011 Discontinued form: INJ, Q2MIN, PRN Narcotic Reversal, Start date: 12/07/11 13:01:00, Duration: 8 doses or times, Stop date: 12/08/11 0:00:00 flumazenil 0.2 mg, 2 mL, Route: IVP, Drug 12/07/2011 12/07/2011 Discontinued form: INJ, PRN, PRN Benzodiazepine Reversal, Initial dose, Start date: 12/07/11 13:01:00, Stop date: 12/08/11 0:00:00 ondansetron 4 mg, 2 mL, Route: IVP, Drug form: 12/07/2011 12/07/2011 Discontinued INJ, ONCE, PRN Nausea & Vomiting, Start date: 12/07/11 13:01:00 dexamethasone 4 mg, 1 mL, Route: IVP, Drug form: 12/07/2011 12/07/2011 Discontinued INJ, ONCE, PRN Nausea & Vomiting, Start date: 12/07/11 13:01:00 Gas-X Ultra Softgels 180 mg, Route: PO, BID, Start date: 12/09/2011 12/09/2011 Discontinued 12/09/11 17:00:00, Duration: 30 day, Stop date: 01/08/12 9:00:00 LR IV 1,000 mL 1,000 mL, Rate: 40 ml/hr, Infuse 12/08/2011 12/09/2011 Discontinued over: 25 hr, Route: IV, Dosing Weight 145 kg, Total Volume: 1,000, Start date: 12/08/11 18:48:00, Duration: 30 day, Stop date: 01/07/12 18:47:00 Mefoxin 2 gm, Route: IVPB, Drug form: INJ, 12/07/2011 12/07/2011 Completed PRE OP, Start date: 12/07/11 3:00:00, Duration: 1 day, Stop date: 12/08/11 2:59:00 heparin 5,000 unit, 1 mL, Route: SUB-Q, 12/07/2011 12/07/2011 Completed Drug form: INJ, PRE OP, Start date: 12/07/11 3:00:00, Duration: 1 day, Stop date: 12/08/11 2:59:00 Transderm-Scop 1 patch, Route: TOP, Drug form: 12/07/2011 12/07/2011 Completed ERFILM, PRE OP, Start date: 12/07/11 3:00:00, Duration: 1 day, Stop date: 12/08/11 2:59:00 Centrum oral tablet 1 tab, PO, Daily, 30 tab, 11/28/2011 12/09/2011 Discontinued Substitution Allowed, Maintenance, TAB Gas-X Ultra Softgels 180 mg, 1 cap, PO, BID, 60 cap, 12/09/2011 Ordered 180 mg oral capsule Substitution Allowed, CAP aspirin 325 mg 975 mg, 3 tab, PO, Daily, 11/28/2011 12/09/2011 Discontinued tablet Substitution Allowed spironolactone 50 mg PO, Daily, Substitution Allowed 11/28/2011 12/09/2011 Discontinued oral tablet metolazone 5 mg oral 5 mg, 1 tab, PO, Daily, 30 tab, 11/28/2011 12/09/2011 Discontinued tablet Substitution Allowed, TAB ranitidine 150 mg 150 mg, 1 tab, PO, BID, 6 tab, 11/28/2011 12/09/2011 Discontinued oral tablet Substitution Allowed Lortab 500 mg-7.5 15 ml, PO, Q4H, PRN, 500 mL, for 12/09/2011 Ordered mg/15 mL oral elixir pain, Substitution Allowed, Soft Stop, ELIX Phenergan 12.5 mg, 0.5 mL, Route: IVPB, Drug 12/07/2011 12/09/2011 Discontinued form: INJ, Q6H, PRN as needed for nausea/vomiting, Start date: 12/07/11 14:13:00, Duration: 30 day, Stop date: 01/06/12 14:12:00 AMIODarone 400 mg 400 mg, 1 tab, PO, Daily, 30 tab, 11/28/2011 Ordered oral tablet Substitution Allowed, TAB Benadryl 12.5 mg, 0.25 mL, Route: IV, Drug 12/07/2011 12/09/2011 Discontinued form: INJ, Q6H, PRN Other -See Comment, Start date: 12/07/11 14:13:00, Duration: 30 day, Stop date: 01/06/12 14:12:00, itching/insomnia Zofran 4 mg, 2 mL, Route: IV, Drug form: 12/07/2011 12/09/2011 Discontinued INJ, Q6H, PRN as needed for nausea/vomiting, Start date: 12/07/11 14:13:00, Duration: 30 day, Stop date: 01/06/12 14:12:00 potassium chloride 40 mEq, 30 mL, Route: NJ, Drug 12/08/2011 12/08/2011 Discontinued form: LIQ, ONCE, Start date: 12/08/11 8:27:00, Duration: 1 doses or times, Stop date: 12/08/11 8:27:00, For K=3 - 3.4 mEq/L For K=3 - 3.4 mEq/L Plavix 75 mg oral 75 mg, 1 tab, PO, Daily, 30 tab, 11/28/2011 Ordered tablet Substitution Allowed, TAB heparin 5,000 unit, 1 mL, Route: SUB-Q, 12/07/2011 12/09/2011 Discontinued Drug form: INJ, Q8H, Start date: 12/07/11 16:00:00, Duration: 30 day, Stop date: 01/06/12 8:00:00 potassium chloride 20 mEq, 100 mL, Route: IVPB, Drug 12/08/2011 12/08/2011 Completed form: INJ, Q2H, Total Dose=40 mEq, Start date: 12/08/11 12:00:00, Duration: 2 doses or times, Stop date: 12/08/11 14:00:00, For K=3 - 3.4 mEq/L For K=3 - 3.4 mEq/L simvastatin 80 mg 80 mg, 1 tab, PO, Daily, 90 tab, 12/07/2011 12/09/2011 Discontinued oral tablet Substitution Allowed, TAB ranitidine 15 mg/mL 150 mg, 10 mL, Route: PO, Drug 12/09/2011 12/09/2011 Discontinued oral syrup form: SYRP, BID, Start date: 12/09/11 17:00:00, Duration: 30 day, Stop date: 01/08/12 9:00:00 [place] 325 mg-10 mg / 15 mL, Route: PO, Drug Form: SOLN, 12/08/2011 12/09/2011 Discontinued 15 mL oral solution Q4H, PRN Pain Score 1-3, Start date: 12/08/11 10:00:00, Stop date: 01/07/12 9:59:00 [place] 325 mg-10 mg / 15 mL, Route: PO, Drug Form: SOLN, 12/08/2011 12/09/2011 Discontinued 15 mL oral solution Q4H, PRN Pain Score 4-6, Start date: 12/08/11 10:00:00, Stop date: 01/07/12 9:59:00 metoprolol 5 mg/5 ml 5 mg, 5 mL, Route: IVP, Drug form: 12/07/2011 12/09/2011 Discontinued INJ INJ, Q6H, Start date: 12/07/11 18:00:00, Stop date: 01/06/12 12:00:00 ranitidine 15 mg/mL 150 mg, 10 mL, PO, BID, 500 mL, 1, 12/09/2011 Ordered oral syrup 1, Substitution Allowed, SYRP nalbuphine 2 mg, 0.2 mL, Route: IVP, Drug 12/07/2011 12/08/2011 Discontinued form: INJ, Q2H, PRN Itching, Start date: 12/07/11 12:36:00, Duration: 5 doses or times, Stop date: Limited # of times ondansetron 4 mg, 2 mL, Route: IVP, Drug form: 12/07/2011 12/08/2011 Discontinued INJ, ONCE, PRN Nausea & Vomiting, Start date: 12/07/11 12:36:00 morphine 1 mg/ml DIGESTER COOK 30 mg, 30 mL, Route: IV, Initial 12/07/2011 12/09/2011 Discontinued (30 mg/30 mL) INJ Loading Dose: 2 mg, DIGESTER COOK Dose: 1 Syringe 30 mg mg, DIGESTER COOK Lockout: 10 minutes, Continuous Basal Rate: 0 mg, 4 Hour Limit (In MG): 30, Drug Form: INJ, Continuous, Pain, Start date: 12/07/11 12:36:00, Duration: 30 day, Stop date: ... naloxone 0.04 mg, 0.1 mL, Route: IVP, Drug 12/07/2011 12/09/2011 Discontinued form: INJ, Q2MIN, PRN Narcotic Reversal, Start date: 12/07/11 12:36:00, Duration: 30 day, Stop date: 01/06/12 12:35:00 acetaminophen-hydroc 15 mL, Route: PO, Drug Form: SOLN, 12/07/2011 12/07/2011 Discontinued odone 325 mg-10 Q4H, PRN Pain Score 1-3, Start mg/15 mL oral date: 12/07/11 12:36:00, Duration: solution 30 day, Stop date: 01/06/12 12:35:00 acetaminophen-hydroc 30 mL, Route: PO, Drug Form: SOLN, 12/07/2011 12/07/2011 Discontinued odone 325 mg-10 Q4H, PRN Pain Score 4-6, Start mg/15 mL oral date: 12/07/11 12:36:00, Duration: solution 30 day, Stop date: 01/06/12 12:35:00 famotidine 20 mg, 2 mL, Route: IVP, Drug form: 12/07/2011 12/09/2011 Discontinued INJ, Q12H, Start date: 12/07/11 21:00:00, Duration: 30 day, Stop date: 01/06/12 9:00:00 morphine Sulfate 2 mg, 1 mL, Route: IVP, Drug form: 12/07/2011 12/09/2011 Discontinued INJ, Q2H, PRN Pain Score 1-5, Start date: 12/07/11 12:36:00, Duration: 30 day, Stop date: 01/06/12 12:35:00 cefoxitin (SCIP) 2 gm, Route: IVPB, Drug form: INJ, 12/07/2011 12/08/2011 Completed Q6H, Start date: 12/07/11 18:00:00, Duration: 4 doses or times, Stop date: 12/08/11 12:00:00 Lactated Ringers 1,000 mL, Rate: 125 ml/hr, Infuse 12/07/2011 12/08/2011 Discontinued Injection IV 1,000 over: 8 hr, Route: IV, Dosing mL Weight 145 kg, Total Volume: 1,000, Start date: 12/07/11 12:36:00, Duration: 30 day, Stop date: 01/06/12 12:35:00 aspirin 81 mg 81 mg, 1 tab, PO, TID, 0 tab, 12/09/2011 Ordered tablet, enteric Substitution Allowed, ECTAB coated Cordarone 400 mg, 10 mL, Route: PO, Drug 12/09/2011 12/09/2011 Discontinued form: SUSP, Daily, Start date: 12/09/11 16:30:00, Duration: 30 day, Stop date: 01/08/12 9:00:00 Vital Signs Most recent to oldest [Reference Range]: 1 2 3 Height 167.60 cm (12/07/2011 17:38:00) 167.64 cm (12/07/2011 07:00:00) 167.64 cm (11/28/2011 14:57:00) Temperature Oral [96.4-99.1 DegF] 98.0 DegF (12/09/2011 11:54:00) 98.1 DegF (12/09/2011 08:06:00) 98.1 DegF (12/09/2011 03:58:00) Systolic Blood Pressure [90-140 mmHg] 120 mmHg (12/09/2011 11:54:00) 116 mmHg (12/09/2011 08:06:00) 125 mmHg (12/09/2011 03:58:00) Diastolic Blood Pressure [60-90 mmHg] 54 mmHg *LOW* (12/09/2011 11:54:00) 56 mmHg *LOW* (12/09/2011 08:06:00) 59 mmHg *LOW* (12/09/2011 03:58:00) Respiratory Rate [14-20 BRMIN] 20 BRMIN (12/09/2011 11:54:00) 20 BRMIN (12/09/2011 08:06:00) 18 BRMIN (12/09/2011 03:58:00) Peripheral Pulse Rate [60-100 bpm] 61 bpm (12/09/2011 11:54:00) 60 bpm (12/09/2011 08:06:00) 60 bpm (12/09/2011 03:58:00) Weight 145.000 kg (12/07/2011 17:38:00) 145.000 kg (12/07/2011 07:00:00) 147.727 kg (11/28/2011 14:57:00) Results URINALYSIS Most recent to oldest [Reference Range]: 1 2 3 UA Turbidity [Clear] Clear (11/28/2011 12:15:00) UA Color [Yellow] Dark Yellow *NA* (11/28/2011 12:15:00) UA pH [5.0-8.0] 6.0 (11/28/2011 12:15:00) UA Spec Grav [<=1.030] 1.027 (11/28/2011 12:15:00) UA Glucose [Negative mg/dL] Negative mg/dL *NA* (11/28/2011 12:15:00) UA Blood [Negative] Negative (11/28/2011 12:15:00) UA Ketones TR *NA* (11/28/2011 12:15:00) UA Protein [Negative mg/dL] 30 mg/dL *ABN* (11/28/2011 12:15:00) UA Urobilinogen [0.1-1.0 mg/dL] <=1.0 mg/dL *NA* (11/28/2011 12:15:00) UA Bili [Negative] Negative *NA* (11/28/2011 12:15:00) UA Leuk Est [Negative] Trace *ABN* (11/28/2011 12:15:00) UA Nitrite [Negative] Negative (11/28/2011 12:15:00) UA WBC [0-5 /HPF] 2 /HPF (11/28/2011 12:15:00) UA RBC [0-2 /HPF] <1 /HPF (11/28/2011 12:15:00) UA Bacteria [None Seen /HPF] Occasional /HPF *NA* (11/28/2011 12:15:00) UA Sq Epi [Few /LPF] Few /LPF *NA* (11/28/2011 12:15:00) UA Mucus [None Seen /LPF] Many /LPF *ABN* (11/28/2011 12:15:00) Micro? Performed *NA* (11/28/2011 12:15:00) BLOOD BANK RESULTS Most recent to oldest [Reference Range]: 1 2 3 ABO/Rh AB POS *Unknown* (12/07/2011 06:00:00) Antibody Scrn Negative (12/07/2011 06:00:00) CHEMISTRY Most recent to oldest [Reference Range]: 1 2 3 Sodium Lvl [135-145 mEq/L] 145 mEq/L (12/09/2011 07:17:00) 144 mEq/L (12/08/2011 04:30:00) 141 mEq/L (11/28/2011 12:15:00) Potassium Lvl [3.5-5.1 mEq/L] 3.5 mEq/L (12/09/2011 07:17:00) 2.8 mEq/L 1 *CRIT* (12/08/2011 04:30:00) 3.8 mEq/L (11/28/2011 12:15:00) Chloride Lvl [95-109 mEq/L] 98 mEq/L (12/09/2011 07:17:00) 100 mEq/L (12/08/2011 04:30:00) 100 mEq/L (11/28/2011 12:15:00) CO2 [24-32 mEq/L] 35 mEq/L *HI* (12/09/2011 07:17:00) 31 mEq/L (12/08/2011 04:30:00) 31 mEq/L (11/28/2011 12:15:00) AGAP [10.0-20.0 mEq/L] 15.5 mEq/L (12/09/2011 07:17:00) 15.8 mEq/L (12/08/2011 04:30:00) 13.8 mEq/L (11/28/2011 12:15:00) Creatinine Lvl [0.5-1.4 mg/dL] 1.0 mg/dL (12/09/2011 07:17:00) 0.9 mg/dL (12/08/2011 04:30:00) 1.4 mg/dL (11/28/2011 12:15:00) BUN [7-22 mg/dL] 9 mg/dL (12/09/2011 07:17:00) 11 mg/dL (12/08/2011 04:30:00) 27 mg/dL *HI* (11/28/2011 12:15:00) B/C Ratio [6-25] 19 (11/28/2011 12:15:00) Glucose Lvl [70-99 mg/dL] 106 mg/dL 2 *HI* (12/09/2011 07:17:00) 85 mg/dL 3 (12/08/2011 04:30:00) 92 mg/dL 4 (11/28/2011 12:15:00) Total Protein [6.4-8.4 g/dL] 7.7 g/dL (11/28/2011 12:15:00) Albumin Lvl [3.5-5.0 g/dL] 4.6 g/dL (11/28/2011 12:15:00) Globulin [2.0-4.0 g/dL] 3.1 g/dL (11/28/2011 12:15:00) A/G Ratio [0.7-1.6] 1.5 (11/28/2011 12:15:00) Calcium Lvl [8.5-10.5 mg/dL] 9.1 mg/dL (12/09/2011 07:17:00) 8.4 mg/dL *LOW* (12/08/2011 04:30:00) 9.3 mg/dL (11/28/2011 12:15:00) Phosphorus [2.5-4.5 mg/dL] 2.3 mg/dL *LOW* (12/09/2011 07:17:00) 3.4 mg/dL (12/08/2011 04:30:00) Magnesium Lvl [1.8-2.4 mg/dL] 2.1 mg/dL (12/09/2011 07:17:00) 1.9 mg/dL (12/08/2011 04:30:00) ALT [0-65 U/L] 63 U/L (11/28/2011 12:15:00) AST [0-37 U/L] 42 U/L *HI* (11/28/2011 12:15:00) Alk Phos [39-136 U/L] 46 U/L (11/28/2011 12:15:00) Bili Total [0.2-1.3 mg/dL] 1.0 mg/dL (11/28/2011 12:15:00) 1Result Comment: Critical Result(s) called to korina cook at _ 12/08/2011 08:25:24 CDTy_lss. Read back OK. 2Interpretive Data: Adult reference range values reflect the clinical guidelines of the [place] [employer]. 3Interpretive Data: Adult reference range values reflect the clinical guidelines of the [place] [employer]. 4Interpretive Data: Adult reference range values reflect the clinical guidelines of the [place] [employer]. HEMATOLOGY Most recent to oldest [Reference Range]: 1 2 3 WBC [3.7-10.4 K/CMM] 11.8 K/CMM *HI* (12/09/2011 07:17:00) 9.6 K/CMM (12/08/2011 04:30:00) 9.1 K/CMM (11/28/2011 12:15:00) RBC [4.70-6.10 M/CMM] 4.58 M/CMM *LOW* (12/09/2011 07:17:00) 4.36 M/CMM *LOW* (12/08/2011 04:30:00) 4.92 M/CMM (11/28/2011 12:15:00) Hgb [14.0-18.0 g/dL] 13.7 g/dL *LOW* (12/09/2011 07:17:00) 13.1 g/dL *LOW* (12/08/2011 04:30:00) 14.7 g/dL (11/28/2011 12:15:00) Hct [42.0-54.0 %] 41.1 % *LOW* (12/09/2011 07:17:00) 39.0 % *LOW* (12/08/2011 04:30:00) 43.8 % (11/28/2011 12:15:00) MCV [80.0-94.0 fL] 89.8 fL (12/09/2011 07:17:00) 89.4 fL (12/08/2011 04:30:00) 89.0 fL (11/28/2011 12:15:00) MCH [27.0-31.0 pg] 29.9 pg (12/09/2011 07:17:00) 30.1 pg (12/08/2011 04:30:00) 29.9 pg (11/28/2011 12:15:00) MCHC [32.0-36.0 g/dL] 33.3 g/dL (12/09/2011 07:17:00) 33.7 g/dL (12/08/2011 04:30:00) 33.6 g/dL (11/28/2011 12:15:00) RDW [11.5-14.5 %] 14.6 % *HI* (12/09/2011 07:17:00) 14.9 % *HI* (12/08/2011 04:30:00) 14.4 % (11/28/2011 12:15:00) Platelet [133-450 K/CMM] 177 K/CMM (12/09/2011 07:17:00) 159 K/CMM (12/08/2011 04:30:00) 231 K/CMM (11/28/2011 12:15:00) MPV [7.4-10.4 fL] 11.4 fL *HI* (12/09/2011 07:17:00) 11.7 fL *HI* (12/08/2011 04:30:00) 11.0 fL *HI* (11/28/2011 12:15:00) Segs [45.0-75.0 %] 74.1 % (12/09/2011 07:17:00) 70.9 % (12/08/2011 04:30:00) 66.3 % (11/28/2011 12:15:00) Lymphocytes [20.0-40.0 %] 11.2 % *LOW* (12/09/2011 07:17:00) 15.0 % *LOW* (12/08/2011 04:30:00) 22.5 % (11/28/2011 12:15:00) Monocytes [2.0-12.0 %] 13.9 % *HI* (12/09/2011 07:17:00) 13.5 % *HI* (12/08/2011 04:30:00) 9.9 % (11/28/2011 12:15:00) Eosinophils [0.0-4.0 %] 0.4 % (12/09/2011 07:17:00) 0.4 % (12/08/2011 04:30:00) 0.8 % (11/28/2011 12:15:00) Basophils [0.0-1.0 %] 0.4 % (12/09/2011 07:17:00) 0.2 % (12/08/2011 04:30:00) 0.5 % (11/28/2011 12:15:00) Segs-Bands # [1.5-8.1 K/CMM] 8.7 K/CMM *HI* (12/09/2011 07:17:00) 6.8 K/CMM (12/08/2011 04:30:00) 6.0 K/CMM (11/28/2011 12:15:00) Lymphocytes # [1.0-5.5 K/CMM] 1.3 K/CMM (12/09/2011 07:17:00) 1.4 K/CMM (12/08/2011 04:30:00) 2.1 K/CMM (11/28/2011 12:15:00) Monocytes # [0.0-0.8 K/CMM] 1.6 K/CMM *HI* (12/09/2011 07:17:00) 1.3 K/CMM *HI* (12/08/2011 04:30:00) 0.9 K/CMM *HI* (11/28/2011 12:15:00) Eosinophils # [0.0-0.5 K/CMM] 0.0 K/CMM (12/09/2011 07:17:00) 0.0 K/CMM (12/08/2011 04:30:00) 0.1 K/CMM (11/28/2011 12:15:00) Basophils # [0.0-0.2 K/CMM] 0.0 K/CMM (12/09/2011 07:17:00) 0.0 K/CMM (12/08/2011 04:30:00) 0.0 K/CMM (11/28/2011 12:15:00) RBC Morph Normal (12/08/2011 04:30:00) Plt Morph Normal (12/08/2011 04:30:00)
--- OUTSIDE RECORDS SUMMARY | 2018-07-10 06:30 | XMS REPORT | Summary of Care ---
Author Organization Unknown Address Unknown Phone Unavailable Encounter FABRICE Zaman(EUSEBIA) [id number] Date(s): 07/13/14 - 07/13/14 [facility] [address] [place] Discharge Disposition: DC/TF to Oth Institu Physician Attending: Enzo Khan MD Reason for Visit FALL Vital Signs 1 2 3 Most recent to oldest [Reference Range]: 167.64 cm (07/13/14 9:45 AM) Height 97.6 DegF (07/13/14 11:41 AM) 97.9 DegF (07/13/14 9:45 AM) Temperature Oral [96.4-99.1 DegF] 125 mmHg (07/13/14 12:10 PM) 125 mmHg (07/13/14 11:41 AM) 126 mmHg (07/13/14 11:30 AM) Systolic Blood Pressure [90-140 mmHg] 60 mmHg (07/13/14 12:10 PM) 60 mmHg (07/13/14 11:41 AM) 55 mmHg *LOW* (07/13/14 11:30 AM) Diastolic Blood Pressure [60-90 mmHg] 21 BRMIN *HI* (07/13/14 12:10 PM) 25 BRMIN *HI* (07/13/14 11:41 AM) 21 BRMIN *HI* (07/13/14 11:30 AM) Respiratory Rate [14-20 BRMIN] 62 bpm (07/13/14 9:45 AM) Peripheral Pulse Rate [60-100 bpm] 120 kg (07/13/14 9:45 AM) Weight 42.7 m2 (07/13/14 9:45 AM) Body Mass Index Problem List Condition Effective Dates Status Health Status Informant Atrial Resolved fibrillation(Confirm ed) Chest Active pain(Confirmed) Hypertension(Confirm Resolved ed) Pain(Confirmed) Active Allergies, Adverse Reactions, Alerts Substance Reaction Severity Status NKDA Active Medications acetaminophen-hydrocodone 325 mg-10 mg oral tablet 1 tab, Route: PO, Drug Form: TAB, Dosing Weight 120, kg, ONCE, STAT, Start date: 07/13/14 10:27:00, Stop date: 07/13/14 10:27:00 Notes: Do not exceed 4gm/day of acetaminophen. (Same as: [place] 325/10) Start Date: 07/13/14 Stop Date: 07/13/14 Status: Discontinued aspirin 325 mg tablet 325 mg=1 tab, PO, Daily, # 30 tab, 0 Refill(s) Start Date: 07/13/14 Status: Ordered atenolol 25 mg, PO, Daily, 0 Refill(s) Start Date: 07/13/14 Status: Ordered Dilaudid 1 mg, Route: IV, ONCE, Dosing Weight 120, kg, Start date: 07/13/14 11:36:00, Sto p date: 07/13/14 11:36:00 Start Date: 07/13/14 Stop Date: 07/13/14 Status: Completed mannitol 60 gm, 300 mL, Route: IV, Drug form: INJ, ONCE, Dosing Weight 120, kg, Priority: STAT, Start date: 07/13/14 11:23:00, Stop date: 07/13/14 11:23:00 Notes: (Same as: Osmitrol)Infuse through 5 micron or smaller filter Start Date: 07/13/14 Stop Date: 07/13/14 Status: Ordered mannitol 20% intravenous solution 100 gm 100 gm, 500 mL, Rate: Use as directed, Dosing Weight 120, kg, Route: IV, Total V olume: 500 mL, Start Date: 07/13/14 11:38:00, Duration: 30 day, Stop date: 08/12 12:37:00, Replace Every: 24 hr Start Date: 07/13/14 Stop Date: 07/13/14 Status: Voided With Results metoclopramide 10 mg, 2 mL, Route: IVP, Drug form: INJ, ONCE, Dosing Weight 120, kg, Priority: STAT, Start date: 07/13/14 11:00:00, Stop date: 07/13/14 11:00:00 Notes: (Same as: Reglan) Start Date: 07/13/14 Stop Date: 07/13/14 Status: Ordered morphine Sulfate 2 mg, 1 mL, Route: IVP, Drug form: INJ, ONCE, Dosing Weight 120, kg, Priority: S TAT, Start date: 07/13/14 11:00:00, Stop date: 07/13/14 11:00:00 Notes: (Same as:MORPhine Sulfate) Start Date: 07/13/14 Stop Date: 07/13/14 Status: Ordered ranitidine 150 mg oral capsule 150 mg=1 cap, PO, Daily, 0 Refill(s) Start Date: 07/13/14 Status: Suspended Reglan 10 mg oral tablet 10 mg, 1 tab, Route: PO, Drug form: TAB, ONCE, Dosing Weight 120, kg, Start date : 07/13/14 10:28:00, Stop date: 07/13/14 10:28:00 Notes: (Same as: Reglan) Take 30 min before meals Start Date: 07/13/14 Stop Date: 07/13/14 Status: Discontinued Zofran 4 mg, Route: IVP, Drug form: INJ, ONCE, Dosing Weight 120, kg, Priority: STAT, S tart date: 07/13/14 11:36:00, Stop date: 07/13/14 11:36:00 Start Date: 07/13/14 Stop Date: 07/13/14 Status: Completed Results BLOOD BANK RESULTS Most recent to 1 oldest [Reference Range]: ABO/Rh AB POS *Unknown* (07/13/14 11:23 AM) Antibody Scrn Negative (07/13/14 11:23 AM) ELECTROLYTES Most recent to 1 oldest [Reference Range]: Sodium Lvl [135-145 141 mEq/L mEq/L] (07/13/14 11:19 AM) Potassium Lvl 3.8 mEq/L [3.5-5.1 mEq/L] (07/13/14 11:19 AM) Chloride Lvl [95-109 110 mEq/L mEq/L] *HI* (07/13/14 11:19 AM) CO2 [24-32 mEq/L] 21 mEq/L *LOW* (07/13/14 11:19 AM) AGAP [10.0-20.0 13.8 mEq/L mEq/L] (07/13/14) CHEM PANEL Most recent to 1 oldest [Reference Range]: Creatinine Lvl 1.0 mg/dL [0.5-1.4 mg/dL] (07/13/14 AM) eGFR 84 mL/min/1.73m2 1 *NA* (07/13/14) BUN [7-22 mg/dL] 20 mg/dL (07/13/14 AM) B/C Ratio [6-25] 20 (07/13/14 AM) Glucose Lvl [70-99 144 mg/dL 2 mg/dL] *HI* (07/13/14) Total Protein 7.4 g/dL [6.4-8.4 g/dL] (07/13/14 AM) Albumin Lvl [3.5-5.0 3.8 g/dL g/dL] (07/13/14) Globulin [2.0-4.0 3.6 g/dL g/dL] (07/13/14 AM) A/G Ratio [0.7-1.6] 1.1 (07/13/14 AM) Calcium Lvl 8.7 mg/dL [8.5-10.5 mg/dL] (07/13/14 AM) ALT [0-65 unit/L] 23 unit/L (07/13/14 AM) AST [0-37 unit/L] 27 unit/L (07/13/14 AM) Alk Phos [39-136 56 unit/L unit/L] (07/13/14 AM) Bili Total [0.2-1.3 0.9 mg/dL mg/dL] (07/13/14 AM) 1Result Comment: The eGFR is calculated using the CKD-EPI formula. In most young, healthy individuals the eGFR will be >90 mL/min/1.73m2. The eGFR declines with age. An eGFR of 60-89 may be normal in some populations, particularly the elderly, for whom the CKD-EPI formula has not been extensively validated. Use of the eGFR is not recommended in the following populations: Individuals with unstable creatinine concentrations, including patients and those with serious co-morbid conditions. Patients with extremes in muscle mass or diet. The data above are obtained from the National Kid[employer] Education Program ( NKDEP) which additionally recommends that when the eGFR is used in patients with extremes of body mass index for purposes of drug dosing, the eGFR should be mul tiplied by the estimated BMI. 2Interpretive Data: Adult reference range values reflect the clinical guidelines of the [place] [employer]. HEMATOLOGY Most recent to 1 oldest [Reference Range]: WBC [3.7-10.4 K/CMM] 15.7 K/CMM *HI* (07/13/14 AM) RBC [4.70-6.10 4.98 M/CMM M/CMM] (07/13/14) Hgb [14.0-18.0 g/dL] 14.4 g/dL (07/13/14 AM) Hct [42.0-54.0 %] 45.1 % (07/13/14) MCV [80.0-94.0 fL] 90.6 fL (07/13/14 AM) MCH [27.0-31.0 pg] 29.0 pg (07/13/14 AM) MCHC [32.0-36.0 32.0 g/dL g/dL] (07/13/14 AM) RDW [11.5-14.5 %] 14.2 % (07/13/14) Platelet [133-450 215 K/CMM K/CMM] (07/13/14) MPV [7.4-10.4 fL] 11.5 fL *HI* (07/13/14) Segs [45.0-75.0 %] 80.4 % *HI* (07/13/14 AM) Lymphocytes 13.9 % [20.0-40.0 %] *LOW* (07/13/14) Monocytes [2.0-12.0 4.7 % %] (07/13/14 AM) Eosinophils [0.0-4.0 0.5 % %] (2/9/15 11:19 AM) Basophils [0.0-1.0 0.5 % %] (07/13/14 11:19 AM) Segs-Bands # 12.6 K/CMM [1.5-8.1 K/CMM] *HI* (07/13/14 11:19 AM) Lymphocytes # 2.2 K/CMM [1.0-5.5 K/CMM] (07/13/14:19 AM) Monocytes # [0.0-0.8 0.7 K/CMM K/CMM] (07/13/14 11:19 AM) Eosinophils # 0.1 K/CMM [0.0-0.5 K/CMM] (07/13/14: AM) Basophils # [0.0-0.2 0.1 K/CMM K/CMM] (07/13/14 11:19 AM) PT [12.0-14.7 13.1 seconds seconds] (07/13/14 AM) INR [0.85-1.17] 0.99 3 (07/13/14:19 AM) PTT [22.9-35.8 22.2 seconds 4 seconds] *LOW* (07/13/14: AM) 3Interpretive Data: RECOMMENDED RANGES FOR PROTIME INR: 2.0-3.0 for most medical and surgical thromboembolic states. 2.5-3.5 for artificial heart valves and recurrent embolism. INR SHOULD BE USED ONLY FOR PATIENTS ON STABLE ANTICOAGULANT THERAPY. 4Interpretive Data: Heparin Therapeutic Range: 57 - 92 Seconds Medications Administered During Your Visit No data available for this section Immunizations Vaccine Date Refusal Reason diphtheria/pertussis, acel/tetanus adult 07/13/14 Procedures Procedure Type Body Site Date of Procedure Related Diagnosis Procedure on stomach1 1gastric sleeve Social History Social History Type Response Smoking Status Never smoker, Exposure to Tobacco Smoke None, Cigarette Smoking Last 365 Days No, Reg Smoking Cessation Counseling Yes
--- OUTSIDE RECORDS SUMMARY | 2018-07-10 06:30 | XMS REPORT | CCD ---
Author Author Auto Generated Organization [facility] Address Unknown Phone Unavailable Care Team Providers Care Gum Mixer Name Role Phone Rodney Long CP Allergies, Adverse Reactions, Alerts Substance Reaction Status NKDA Active Problem List Condition Effective Dates Status Chest pain Active Pain Active
--- OUTSIDE RECORDS SUMMARY | 2018-07-10 06:30 | XMS REPORT | Continuity of Care Document ---
Author Author Ji morejon [facility] Interface Address Unknown Phone Unavailable Problems Problem Status Onset Date Classification Date Reported Comments Source CRANIAL DEFECT Active 09/11/2014 [facility] SUBDURAL HEMATOMA Active 07/17/2014 Condition 11/19/2014 [facility] FALL Active 07/13/2014 [facility] SUBDURAL BLEED Active 07/13/2014 [facility] MATHEW BILLING ONLY LF#[id number] Active 07/13/2014 [facility] MORBID OBESITY, ICD-9# 278.01 Active 04/05/2011 [facility] Chest pain Active Problem 05/09/[address] [facility] Pain Active Problem 05/09/[address] [facility] Final: 09/28/2014 [facility] Atrial fibrillation Resolved Problem 09/28/2014 DOMENICO Morejon, DOMENICO Toribio,[facility] Chest pain Active Problem 09/28/2014 DOMENICO Morejon, DOMENICO Toribio,[facility] Hypertension Resolved Problem 09/28/2014 DOMENICO Morejon, DOMENICO Toribio,[facility] Pain Active Problem 09/28/2014 DOMENICO Morejon, DOMENICO Toribio,[facility] SDH - Subdural hematoma Active Problem 09/28/2014 [facility] Sleep apnea Active Problem 09/28/2014 [facility] MORBID OBESITY Active [facility] RT KNEE TKA Active [facility] ADMINISTRTVE ENCOUNT NOS Active [facility] ACQ HEAD DEFORMITY NEC Active [facility] Medications Medication Details Route Status Patient Instructions Ordering Provider Order Date Source bacitracin zinc 0.5 UNT/MG Topical Ointment 1 appl, Route: TOP, Daily, Drug form: OINT, Start date: 09/25/14 9:00:00, Duration: 30 day, Stop date: 10/24/14 9:00:00 Inactive 09/25/2014 [facility] docusate sodium 100 mg oral capsule 100 mg=1 cap, PO, Q12H, # 50 cap, 0 Refill(s) Active 09/25/2014 [facility] Acetaminophen 300 MG / Codeine Phosphate 30 MG Oral Tablet [Tylenol with Codeine #3] 1 tab, PO, Q4H, PRN Pain, X 7 day, # 50 tab, 0 Refill(s) Active 09/25/2014 [facility] Levetiracetam 1000 MG Oral Tablet 1,000 mg=1 tab, PO, Q12H, # 28 tab, 0 Refill(s) Active 09/25/2014 [facility] heparin sodium, porcine 2500 UNT/ML Injectable Solution 5,000 unit, 1 mL, Route: SUB-Q, Drug form: INJ, Q8H, Dosing Weight 109.091, kg, Start date: 09/24/14 16:00:00, Duration: 30 day, Stop date: 10/24/14 8:00:00Notes: porcine heparin No Longer Active 09/24/2014 [facility] Pepcid 20 mg, 1 tab, Route: PO, Drug form: TAB, Daily, Start date: 09/24/14 9:00:00, Duration: 30 day, Stop date: 10/23/14 9:00:00Notes: (Same as: Pepcid) No Longer Active 09/24/2014 [facility] Ranitidine 150 MG Oral Capsule 150 mg, 1 cap, Route: PO, Drug form: CAP, Daily, Dosing Weight 109.091, kg, Start date: 09/24/14 9:00:00, Duration: 30 day, Stop date: 10/23/14 9:00:00 No Longer Active 09/24/2014 [facility] Atenolol 25 mg, 1 tab, Route: PO, Drug form: TAB, Daily, Dosing Weight 109.091, kg, Start date: 09/24/14 9:00:00, Duration: 30 day, Stop date: 10/23/14 9:00:00Notes: (Same As:Tenormin) No Longer Active 09/24/2014 [facility] Amiodarone 200 mg, 1 tab, Route: PO, Drug form: TAB, Daily, Dosing Weight 109.091, kg, Start date: 09/24/14 9:00:00, Duration: 30 day, Stop date: 10/23/14 9:00:00Notes: (Same as: Cordarone) No Longer Active 09/24/2014 [facility] Saline Flush 0.9% 10 ml, Route: IVP, Drug Form: INJ, Dosing Weight 109.091, kg, Q12H, Start date: 09/23/14 21:00:00, Duration: 30 day, Stop date: 10/23/14 9:00:00Notes: (Same as: BD Posiflush) No Longer Active 09/24/2014 [facility] Docusate 100 mg, 1 cap, Route: PO, Drug form: CAP, Q12H, Dosing Weight 109.091, kg, Start date: 09/23/14 21:00:00, Duration: 30 day, Stop date: 10/23/14 9:00:00Notes: (Same as: Colace) (Do Not Crush) No Longer Active 09/24/2014 [facility] sennosides, MCC 8.6 mg, 1 tab, Route: PO, Drug Form: TAB, Dosing Weight 109.091, kg, Q12H, Start date: 09/23/14 21:00:00, Duration: 30 day, Stop date: 10/23/14 9:00:00Notes: (Same as: Senokot) No Longer Active 09/24/2014 [facility] Levetiracetam 1000 MG Oral Tablet 1,000 mg, 2 tab, Route: PO, Drug form: TAB, Q12H, Dosing Weight 109.091, kg, Start date: 09/23/14 21:00:00, Duration: 30 day, Stop date: 10/23/14 9:00:00Notes: (Same as:Keppra) No Longer Active 09/24/2014 [facility] Sodium Chloride 0.154 MEQ/ML Injectable Solution 250 mL, 250 ml/hr, Infuse Over: 1 hr, Route: IV, 250, Drug form: INJ, ONCE, Priority: STAT, Dosing Weight 109.091 kg, Start date: 09/23/14 20:54:00, Duration: 1 doses or times, Stop date: 09/23/14 20:54:00 No Longer Active 09/24/2014 [facility] Calcium Carbonate 1500 MG / Cholecalciferol 400 UNT Oral Tablet 1 tab, Route: PO, Drug Form: TAB, Dosing Weight 109.091, kg, BID, Start date: 09/23/14 17:00:00, Duration: 30 day, Stop date: 10/23/14 9:00:00Notes: (calcium carbonate-vit D 500mg-400unit TAB) Same as: Oyster-D, OsCal-D No Longer Active 09/23/2014 [facility] ceFAZolin (SCIP) + Sodium Chloride 0.9% IV 100 mL 2 gm, Route: IVPB, Drug form: PDR/INJ, Q8H, Dosing Weight 109.091, kg, Start date: 09/23/14 16:00:00, Duration: 1 day, Stop date: 09/24/14 8:00:00Notes: (Same As: Aniya Heredia) MEDICATION WASTE Product Size: 1000 mg Product Wasted: ___ mg No Longer Active 09/23/2014 [facility] Sodium Chloride 0.154 MEQ/ML Injectable Solution 500 mL, 500 ml/hr, Infuse Over: 1 hr, Route: IV, 500, Drug form: INJ, ONCE, Priority: STAT, Dosing Weight 109.091 kg, Start date: 09/23/14 14:48:00, Duration: 1 doses or times, Stop date: 09/23/14 14:48:00 Inactive 09/23/2014 [facility] Metoclopramide 10 mg, 2 mL, Route: IVP, Drug form: INJ, Q6H, Dosing Weight 109.091, kg, Start date: 09/23/14 12:00:00, Duration: 48 hr, Stop date: 09/25/14 6:00:00Notes: (Same as: Reglan) No Longer Active 09/23/2014 [facility] Hydromorphone 0.5 mg, Route: IVP, Q5Min, Dosing Weight 109.091, kg, PRN Pain Score 7-10, Start date: 09/23/14 11:12:00, Duration: 4 doses or times, Stop date: Limited # of times Inactive 09/23/2014 [facility] Flumazenil 0.2 mg, Route: IVP, PRN, Dosing Weight 109.091, kg, PRN Benzodiazepine Reversal, Initial dose, Start date: 09/23/14 11:12:00, Duration: 30 day, Stop date: 10/23/14 11:11:00 Inactive 09/23/2014 [facility] Ondansetron 4 mg, Route: IVP, ONCE, Dosing Weight 109.091, kg, PRN Nausea & Vomiting, Start date: 09/23/14 11:12:00 Inactive 09/23/2014 [facility] Naloxone 0.04 mg, Route: IVP, Q2MIN, Dosing Weight 109.091, kg, PRN Narcotic Reversal, Start date: 09/23/14 11:12:00, Duration: 8 doses or times, Stop date: Limited # of times Inactive 09/23/2014 [facility] Saline Flush 0.9% 10 ml, Route: IVP, Drug Form: INJ, Dosing Weight 109.091, kg, PRN, PRN Line Flush, Start date: 09/23/14 10:46:00, Duration: 30 day, Stop date: 10/23/14 10:45:00Notes: (Same as: BD Posiflush) No Longer Active 09/23/2014 [facility] Sodium Chloride 0.154 MEQ/ML Injectable Solution 1,000 mL, Rate: 100 ml/hr, Infuse over: 10 hr, Route: IV, Dosing Weight 109.091 kg, Total Volume: 1,000, Start date: 09/23/14 10:46:00, Stop date: 10/23/14 10:45:00 No Longer Active 09/23/2014 [facility] Acetaminophen 650 mg, 2 tab, Route: PO, Drug form: TAB, Q4H, Dosing Weight 109.091, kg, PRN Pain 1-3/Temp > 99.5 F, Start date: 09/23/14 10:46:00, Duration: 30 day, Stop date: 10/23/14 10:45:00Notes: Do not exceed 4 gm/day. (Same as: Tylenol) No Longer Active 09/23/2014 [facility] Acetaminophen 325 MG / Hydrocodone Bitartrate 10 MG Oral Tablet 1 tab, Route: PO, Drug Form: TAB, Dosing Weight 109.091, kg, Q4H, PRN Pain Score 4-6, Start date: 09/23/14 10:46:00, Duration: 30 day, Stop date: 10/23/14 10:45:00Notes: Do not exceed 4gm/day of acetaminophen. (Same as: Eldon 325/10) No Longer Active 09/23/2014 [facility] Acetaminophen 325 MG / Hydrocodone Bitartrate 5 MG Oral Tablet 1 tab, Route: PO, Drug Form: TAB, Dosing Weight 109.091, kg, Q4H, PRN Pain Score 1-3, Start date: 09/23/14 10:46:00, Duration: 30 day, Stop date: 10/23/14 10:45:00Notes: (Same as: Eldon 325/5) Do not exceed 4gm/day of acetaminophen. No Longer Active 09/23/2014 [facility] Morphine 1 mg, 0.5 mL, Route: IVP, Drug form: INJ, Q1H, Dosing Weight 109.091, kg, PRN Pain Score 7-10, Start date: 09/23/14 10:46:00, Duration: 30 day, Stop date: 10/23/14 10:45:00Notes: (Same as:MORPhine Sulfate) No Longer Active 09/23/2014 [facility] Bisacodyl 10 mg, 1 supp, Route: MS, Drug form: SUPP, Daily, Dosing Weight 109.091, kg, PRN Constipation, Start date: 09/23/14 10:46:00, Duration: 30 day, Stop date: 10/23/14 10:45:00Notes: (Same As: Dulcolax, Bisco- Lax) No Longer Active 09/23/2014 [facility] Lactated Ringers IV 1000 mL 1,000 mL, Rate: 40 ml/hr, Infuse over: 25 hr, Route: IV, Dosing Weight 109.091 kg, Total Volume: 1,000, Start date: 09/23/14 6:41:00, Duration: 30 day, Stop date: 10/23/14 6:40:00 Inactive 09/23/2014 [facility] ceFAZolin 2 gm, 50 mL, Route: IVPB, Drug form: INJ, PRE OP, Start date: 09/23/14 5:00:00, Duration: 1 day, Stop date: 09/24/14 4:59:00 Inactive 09/23/2014 [facility] Glucosamine & Chondroitin with MSM oral tablet 1 tab, PO, BID, 0 Refill(s) Active 09/22/2014 [facility] Calcium Carbonate 1500 MG / Cholecalciferol 800 UNT Oral Tablet 1 tab, PO, BID, 0 Refill(s) Active 09/22/2014 [facility] Centrum Men's 1 tab, PO, Daily, 0 Refill(s) Active 09/22/2014 [facility] clopidogrel 75 MG Oral Tablet [Plavix] 75 mg=1 tab, PO, Daily, # 30 tab, 0 Refill(s) No Longer Active 09/22/2014 [facility] Aspirin 325 mg, Daily, 0 Refill(s) No Longer Active 09/22/2014 [facility] AMIODARONE HCL 200 MG TABS one tab po qd Active 09/10/2014 [facility] bacitracin zinc 0.5 UNT/MG Topical Ointment [Baciguent] 1 appl, TOP, Daily, # 30 gm, 0 Refill(s) Active 07/16/2014 [facility] Acetaminophen 300 MG / Codeine Phosphate 30 MG Oral Tablet [Tylenol with Codeine #3] 1 tab, PO, Q4H, for pain, # 50 tab, 0 Refill(s) Active 07/16/2014 [facility] sennosides, MCC 8.6 MG Oral Tablet 8.6 mg=1 tab, PO, Q12H, as needed for constipation, # 36 tab, 0 Refill(s) Active 07/16/2014 [facility] Levetiracetam 500 MG Oral Tablet 500 mg=1 tab, PO, Q12H, # 14 tab, 0 Refill(s) Active 07/16/2014 [facility] Docusate Sodium 100 MG Oral Capsule 100 mg=1 cap, PO, Q12H, as needed for constipation, # 30 cap, 0 Refill(s) Active 07/16/2014 [facility] AMIODarone 200 mg oral tablet 200 mg=1 tab, PO, Daily, 0 Refill(s) Active 07/16/2014 [facility] Cordarone 200 mg, 1 tab, Route: PO, Drug form: TAB, Daily, Start date: 07/15/14 15:28:00, Duration: 30 day, Stop date: 08/14/14 9:00:00Notes: (Same as: Cordarone) No Longer Active 07/15/2014 [facility] bacitracin zinc 0.5 UNT/MG Topical Ointment [Baciguent] 1 appl, Route: TOP, TID, Drug form: OINT, Start date: 07/15/14 10:30:00, Duration: 30 day, Stop date: 08/14/14 9:00:00 No Longer Active 07/15/2014 [facility] Bacitracin / Polymyxin B 1 appl, Route: TOP, QID, Drug form: OINT, PRN Dressing Change, Start date: 07/15/14 10:23:00, Duration: 30 day, Stop date: 08/14/14 10:22:00Notes: (Same As: Polysporin) No Longer Active 07/15/2014 [facility] Pepcid 20 mg, 1 tab, Route: PO, Drug form: TAB, Daily, Start date: 07/15/14 9:00:00, Duration: 30 day, Stop date: 08/13/14 9:00:00Notes: (Same as: Pepcid) No Longer Active 07/15/2014 [facility] K-Dur 20 40 mEq, 2 tab, Route: PO, Drug form: ERTAB, ONCE, Start date: 07/15/14 4:45:00, Stop date: 07/15/14 4:45:00Notes: (Same as: K-Dur 20) "Do Not Crush" With food and full glass of water Inactive 07/15/2014 [facility] Fentanyl 50 microgram, 1 mL, Route: IVP, Drug form: INJ, ONCE, Dosing Weight 125.227, kg, Start date: 07/14/14 14:12:00, Stop date: 07/14/14 14:12:00Notes: (Same as: Sublimaze) Preservative free. Inactive 07/14/2014 [facility] Atenolol 25 mg, 1 tab, Route: PO, Drug form: TAB, Daily, Dosing Weight 120, kg, Start date: 07/14/14 9:00:00, Duration: 30 day, Stop date: 08/12/14 9:00:00Notes: (Same As:Tenormin) No Longer Active 07/14/2014 [facility] Amiodarone 200 mg, 1 tab, Route: PO, Drug form: TAB, Daily, Dosing Weight 120, kg, Start date: 07/14/14 9:00:00, Stop date: 08/12/14 9:00:00Notes: (Same as: Cordarone) No Longer Active 07/14/2014 [facility] Ranitidine 150 MG Oral Capsule 150 mg, 1 cap, Route: PO, Drug form: CAP, Daily, Dosing Weight 120, kg, Start date: 07/14/14 9:00:00, Duration: 30 day, Stop date: 08/12/14 9:00:00 Inactive 07/14/2014 [facility] Ancef + Sodium Chloride 0.9% IV 100 mL 2 gm, Route: IVPB, Q8H, Dosing Weight 120, kg, Start date: 07/14/14 4:00:00, Duration: 1 day, Stop date: 07/14/14 20:00:00Notes: (Same As: Ancef, Kefzol) Inactive 07/14/2014 [facility] potassium chloride 20 mEq, 100 mL, Route: IVPB, Drug form: INJ, Q2H, Start date: 07/14/14 4:00:00, Duration: 2 doses or times, Stop date: 07/14/14 6:00:00Notes: (Same as: KCL) Infuse no faster than 10 mEq/hr if given peripherally. Inactive 07/14/2014 [facility] calcium gluconate + Sodium Chloride 0.9% IV 100 mL 3,000 mg, 30 mL, Route: IV, ONCE, Start date: 07/14/14 3:06:00, Stop date: 07/14/14 3:06:00 Inactive 07/14/2014 [facility] 10 ML Cefazolin 100 MG/ML Prefilled Syringe 2 gm, Route: IVPB, Drug form: INJ, Q8H, Dosing Weight 120, kg, Start date: 07/14/14 0:00:00, Duration: 24 hr, Stop date: 07/14/14 16:00:00 No Longer Active 07/14/2014 [facility] Ondansetron 4 mg, 2 mL, Route: IVP, Drug form: INJ, ONCE, Dosing Weight 120, kg, PRN Nausea & Vomiting, Start date: 07/13/14 22:23:00Notes: (Same as: Zofran) Inactive 07/14/2014 [facility] Naloxone 0.04 mg, 0.1 mL, Route: IVP, Drug form: INJ, Q2MIN, Dosing Weight 120, kg, PRN Narcotic Reversal, Start date: 07/13/14 22:23:00, Duration: 8 doses or times, Stop date: Limited # of timesNotes: Same as Narcan No Longer Active 07/14/2014 [facility] Flumazenil 0.2 mg, 2 mL, Route: IVP, Drug form: INJ, PRN, Dosing Weight 120, kg, PRN Benzodiazepine Reversal, Initial dose, Start date: 07/13/14 22:23:00, Duration: 30 day, Stop date: 08/12/14 23:22:00Notes: (Same as: Romazicon) No Longer Active 07/14/2014 [facility] Hydralazine 10 mg, 0.5 mL, Route: IVP, Drug form: INJ, Q20Min, Dosing Weight 120, kg, PRN Elevated BP, Start date: 07/13/14 22:23:00, Duration: 2 doses or times, Stop date: Limited # of timesNotes: (Same as: Apr esoline) Push over 5 minutes No Longer Active 07/14/2014 [facility] Hydromorphone 0.5 mg, 0.25 mL, Route: IVP, Drug form: INJ, Q5Min, Dosing Weight 120, kg, PRN Pain Score 7-10, Start date: 07/13/14 22:23:00, Duration: 4 doses or times, Stop date: Limited # of timesNotes: Same as: Dilaudid No Longer Active 07/14/2014 [facility] Labetalol 10 mg, 2 mL, Route: IVP, Drug form: INJ, Q5Min, Dosing Weight 120, kg, PRN Elevated BP, Start date: 07/13/14 22:23:00, Duration: 5 doses or times, Stop date: Limited # of times No Longer Active 07/14/2014 [facility] 10 ML Cefazolin 100 MG/ML Prefilled Syringe 2 gm, Route: IVPB, Q8H, Dosing Weight 120, kg, Start date: 07/13/14 22:00:00, Duration: 24 hr, Stop date: 07/14/14 14:00:00Notes: (Same As: Ancef Kefzol) Inactive 07/14/2014 [facility] Cefazolin 1 gm, Route: IV, Drug form: INJ, ONCE, Dosing Weight 120, kg, Priority: STAT, Start date: 07/13/14 21:33:00, Duration: 1 doses or times, Stop date: 07/13/14 21:33:00 Inactive 07/14/2014 [facility] Saline Flush 0.9% 10 ml, Route: IVP, Drug Form: INJ, Dosing Weight 120, kg, Q12H, Start date: 07/13/14 21:00:00, Duration: 30 day, Stop date: 08/12/14 9:00:00Notes: (Same as: BD Posiflush) No Longer Active 07/14/2014 [facility] sennosides, MCC 8.6 mg, 1 tab, Route: PO, Drug Form: TAB, Dosing Weight 120, kg, Q12H, Start date: 07/13/14 21:00:00, Duration: 30 day, Stop date: 08/12/14 9:00:00Notes: (Same as: Senokot) No Longer Active 07/14/2014 [facility] Docusate 100 mg, 1 cap, Route: PO, Drug form: CAP, Q12H, Dosing Weight 120, kg, Start date: 07/13/14 21:00:00, Duration: 30 day, Stop date: 08/12/14 9:00:00Notes: (Same as: Colace) (Do Not Crush) No Longer Active 07/14/2014 [facility] Levetiracetam 500 mg, 1 tab, Route: PO, Drug form: TAB, Q12H, Dosing Weight 120, kg, Start date: 07/13/14 21:00:00, Duration: 30 day, Stop date: 08/12/14 9:00:00Notes: (Same as:Keppra) No Longer Active 07/14/2014 [facility] Promethazine 6.25 mg, 0.25 mL, Route: IVPB, Drug form: INJ, ONCE, Dosing Weight 120, kg, PRN Nausea & Vomiting, Start date: 07/13/14 17:48:00Notes: Do not give IV push. (Same as: Phenergan) Inactive 07/13/2014 [facility] Flumazenil 0.2 mg, 2 mL, Route: IVP, Drug form: INJ, PRN, Dosing Weight 120, kg, PRN Benzodiazepine Reversal, Initial dose, Start date: 07/13/14 17:48:00, Duration: 30 day, Stop date: 08/12/14 18:47:00Notes: (Same as: Romazicon) Inactive 07/13/2014 [facility] Naloxone 0.04 mg, 0.1 mL, Route: IVP, Drug form: INJ, Q2MIN, Dosing Weight 120, kg, PRN Narcotic Reversal, Start date: 07/13/14 17:48:00, Duration: 8 doses or times, Stop date: Limited # of timesNotes: Same as Narcan Inactive 07/13/2014 [facility] Labetalol 10 mg, 2 mL, Route: IVP, Drug form: INJ, Q5Min, Dosing Weight 120, kg, PRN Elevated BP, Start date: 07/13/14 17:48:00, Duration: 5 doses or times, Stop date: Limited # of times Inactive 07/13/2014 [facility] Hydromorphone 0.5 mg, 0.25 mL, Route: IVP, Drug form: INJ, Q5Min, Dosing Weight 120, kg, PRN Pain Score 7-10, Start date: 07/13/14 17:48:00, Duration: 4 doses or times, Stop date: Limited # of timesNotes: Same as: Dilaudid Inactive 07/13/2014 [facility] Hydralazine 10 mg, 0.5 mL, Route: IVP, Drug form: INJ, Q20Min, Dosing Weight 120, kg, PRN Elevated BP, Start date: 07/13/14 17:48:00, Duration: 2 doses or times, Stop date: Limited # of timesNotes: (Same as: Apr esoline) Push over 5 minutes Inactive 07/13/2014 [facility] Ancef 2 gm, Route: IVPB, ONCE, Dosing Weight 120, kg, Start date: 07/13/14 16:15:00, Duration: 1 doses or times, Stop date: 07/13/14 16:15:00 Inactive 07/13/2014 [facility] Ancef 2 gm, Route: IVPB, ONCE, Dosing Weight 120, kg, Start date: 07/13/14 16:12:00, Duration: 1 doses or times, Stop date: 07/13/14 16:12:00 Inactive 07/13/2014 [facility] Dextrose 50% Syringe 25 gm, 50 mL, Route: IVP, Drug Form: INJ, Dosing Weight 120, kg, PRN, PRN Abnormal Lab Result, Start date: 07/13/14 13:11:00, Duration: 30 day, Stop date: 08/12/14 14:10:00 No Longer Active 07/13/2014 [facility] Regular Insulin, Human 100 UNT/ML Injectable Solution 3 unit, 0.03 mL, Route: SUB-Q, Drug form: SOLN, PRN, Dosing Weight 120, kg, PRN Abnormal Lab Result, Start date: 07/13/14 13:11:00, Duration: 30 day, Stop date: 08/12/14 14:10:00Notes: (Same as: Humulin R) Roll in palms of hands gently; Do not shake vigorously. "single patient use only" (Restricted to patients requiring a dose > 60 units) Stable for 28 days at room temperature Expires in days from Date No Longer Active 07/13/2014 [facility] Saline Flush 0.9% 10 ml, Route: IVP, Drug Form: INJ, Dosing Weight 120, kg, PRN, PRN Line Flush, Start date: 07/13/14 13:11:00, Duration: 30 day, Stop date: 08/12/14 14:10:00Notes: (Same as: BD Posiflush) No Longer Active 07/13/2014 [facility] Bisacodyl 10 mg, 1 supp, Route: MS, Drug form: SUPP, Daily, Dosing Weight 120, kg, PRN Constipation, Start date: 07/13/14 13:11:00, Duration: 30 day, Stop date: 08/12/14 13:10:00Notes: (Same As: Dulcolax, Bisco- Lax) No Longer Active 07/13/2014 [facility] Sodium Chloride 0.154 MEQ/ML Injectable Solution 1,000 mL, Rate: 100 ml/hr, Infuse over: 10 hr, Route: IV, Dosing Weight 120 kg, Total Volume: 1,000, Start date: 07/13/14 13:11:00, Stop date: 08/12/14 13:10:00 No Longer Active 07/13/2014 [facility] Levetiracetam 1,000 mg, Route: IVPB, ONCE, Dosing Weight 120, kg, Start date: 07/13/14 13:11:00, Stop date: 07/13/14 13:11:00Notes: Same as Keppra Mix with 100ml NS, LR, or D5W Inactive 07/13/2014 [facility] Acetaminophen 325 MG / Hydrocodone Bitartrate 5 MG Oral Tablet 1 tab, Route: PO, Drug Form: TAB, Dosing Weight 120, kg, Q4H, PRN Pain Score 1-3, Start date: 07/13/14 13:11:00, Duration: 30 day, Stop date: 08/12/14 13:10:00Notes: (Same as: Eldon 325/5) Do not exceed 4gm/day of acetaminophen. No Longer Active 07/13/2014 [facility] Acetaminophen 325 MG / Hydrocodone Bitartrate 10 MG Oral Tablet 1 tab, Route: PO, Drug Form: TAB, Dosing Weight 120, kg, Q4H, PRN Pain Score 4-6, Start date: 07/13/14 13:11:00, Duration: 30 day, Stop date: 08/12/14 13:10:00Notes: Do not exceed 4gm/day of acetaminophen. (Same as: Eldon 325/10) No Longer Active 07/13/2014 [facility] aspirin 325 mg tablet 325 mg=1 tab, PO, Daily, # 30 tab, 0 Refill(s) Active 07/13/2014 [facility] Atenolol 25 mg, PO, Daily, 0 Refill(s) Active 07/13/2014 [facility] Ranitidine 150 MG Oral Capsule 150 mg=1 cap, PO, Daily, 0 Refill(s) On Hold 07/13/2014 [facility] Mannitol 200 MG/ML Injectable Solution 100 gm, 500 mL, Rate: Use as directed, Dosing Weight 120, kg, Route: IV, Total Volume: 500 mL, Start Date: 07/13/14 11:38:00, Duration: 30 day, Stop date: 08/12/14 12:37:00, Replace Every: 24 hr Inactive 07/13/2014 [facility] Zofran 4 mg, Route: IVP, Drug form: INJ, ONCE, Dosing Weight 120, kg, Priority: STAT, Start date: 07/13/14 11:36:00, Stop date: 07/13/14 11:36:00 Inactive 07/13/2014 [facility] Dilaudid 1 mg, Route: IV, ONCE, Dosing Weight 120, kg, Start date: 07/13/14 11:36:00, Stop date: 07/13/14 11:36:00 Inactive 07/13/2014 [facility] Mannitol 60 gm, 300 mL, Route: IV, Drug form: INJ, ONCE, Dosing Weight 120, kg, Priority: STAT, Start date: 07/13/14 11:23:00, Stop date: 07/13/14 11:23:00Notes: (Same as: Osmitrol) Infuse through 5 micron or smaller filter Inactive 07/13/2014 [facility] Morphine 2 mg, 1 mL, Route: IVP, Drug form: INJ, ONCE, Dosing Weight 120, kg, Priority: STAT, Start date: 07/13/14 11:00:00, Stop date: 07/13/14 11:00:00Notes: (Same as:MORPhine Sulfate) Inactive 07/13/2014 [facility] Metoclopramide 10 mg, 2 mL, Route: IVP, Drug form: INJ, ONCE, Dosing Weight 120, kg, Priority: STAT, Start date: 07/13/14 11:00:00, Stop date: 07/13/14 11:00:00Notes: (Same as: Reglan) Inactive 07/13/2014 [facility] Metoclopramide 10 MG Oral Tablet [Reglan] 10 mg, 1 tab, Route: PO, Drug form: TAB, ONCE, Dosing Weight 120, kg, Start date: 07/13/14 10:28:00, Stop date: 07/13/14 10:28:00Notes: (Same as: Reglan) Take 30 min before meals Inactive 07/13/2014 [facility] Acetaminophen 325 MG / Hydrocodone Bitartrate 10 MG Oral Tablet 1 tab, Route: PO, Drug Form: TAB, Dosing Weight 120, kg, ONCE, STAT, Start date: 07/13/14 10:27:00, Stop date: 07/13/14 10:27:00Notes: Do not exceed 4gm/day of acetaminophen. (Same as: [place] 325/10) Inactive 07/13/2014 [facility] Gas-X Ultra Softgels 180 mg, Route: PO, BID, Start date: 12/09/11 17:00:00, Duration: 30 day, Stop date: 01/08/12 9:00:00 PO No Longer Active [place] 12/09/2011 [facility] ranitidine 15 mg/mL oral syrup 150 mg, 10 mL, Route: PO, Drug form: SYRP, BID, Start date: 12/09/11 17:00:00, Duration: 30 day, Stop date: 01/08/12 9:00:00 PO No Longer Active [place] 12/09/2011 [facility] Cordarone 400 mg, 10 mL, Route: PO, Drug form: SUSP, Daily, Start date: 12/09/11 16:30:00, Duration: 30 day, Stop date: 01/08/12 9:00:00 PO No Longer Active [place] 12/09/2011 [facility] Gas-X Ultra Softgels 180 mg oral capsule 180 mg, 1 cap, PO, BID, 60 cap, Substitution Allowed, CAP PO Active [place] 12/09/2011 [facility] Lortab 500 mg-7.5 mg/15 mL oral elixir 15 ml, PO, Q4H, PRN, 500 mL, for pain, Substitution Allowed, Soft Stop, ELIX PO Active [place] 12/09/2011 [facility] ranitidine 15 mg/mL oral syrup 150 mg, 10 mL, PO, BID, 500 mL, 1, 1, Substitution Allowed, SYRP PO Active [place] 12/09/2011 [facility] aspirin 81 mg tablet, enteric coated 81 mg, 1 tab, PO, TID, 0 tab, Substitution Allowed, ECTAB PO Active [place] 12/09/2011 [facility] LR IV 1,000 mL 1,000 mL, Rate: 40 ml/hr, Infuse over: 25 hr, Route: IV, Dosing Weight 145 kg, Total Volume: 1,000, Start date: 12/08/11 18:48:00, Duration: 30 day, Stop date: 01/07/12 18:47:00 IV No Longer Active [place] 12/08/2011 [facility] potassium chloride 20 mEq, 100 mL, Route: IVPB, Drug form: INJ, Q2H, Total Dose=40 mEq, Start date: 12/08/11 12:00:00, Duration: 2 doses or times, Stop date: 12/08/11 14:00:00, For K=3 - 3.4 mEq/LFor K=3 - 3.4 mEq/L IVPB No Longer Active [place] 12/08/2011 [facility] Eldon 325 mg-10 mg / 15 mL oral solution 15 mL, Route: PO, Drug Form: SOLN, Q4H, PRN Pain Score 1-3, Start date: 12/08/11 10:00:00, Stop date: 01/07/12 9:59:00 PO No Longer Active [place] 12/08/2011 [facility] potassium chloride 40 mEq, 30 mL, Route: NJ, Drug form: LIQ, ONCE, Start date: 12/08/11 8:27:00, Duration: 1 doses or times, Stop date: 12/08/11 8:27:00, For K=3 - 3.4 mEq/LFor K=3 - 3.4 mEq/L NJ No Longer Active [place] 12/08/2011 [facility] famotidine 20 mg, 2 mL, Route: IVP, Drug form: INJ, Q12H, Start date: 12/07/11 21:00:00, Duration: 30 day, Stop date: 01/06/12 9:00:00 IVP No Longer Active [place] 12/08/2011 [facility] metoprolol 5 mg/5 ml INJ 5 mg, 5 mL, Route: IVP, Drug form: INJ, Q6H, Start date: 12/07/11 18:00:00, Stop date: 01/06/12 12:00:00 IVP No Longer Active [place] 12/07/2011 [facility] cefoxitin (SCIP) 2 gm, Route: IVPB, Drug form: INJ, Q6H, Start date: 12/07/11 18:00:00, Duration: 4 doses or times, Stop date: 12/08/11 12:00:00 IVPB No Longer Active [facility] 12/07/2011 [facility] heparin 5,000 unit, 1 mL, Route: SUB-Q, Drug form: INJ, Q8H, Start date: 12/07/11 16:00:00, Duration: 30 day, Stop date: 01/06/12 8:00:00 SUB-Q No Longer Active [facility] 12/07/2011 [facility] Phenergan 12.5 mg, 0.5 mL, Route: IVPB, Drug form: INJ, Q6H, PRN as needed for nausea/vomiting, Start date: 12/07/11 14:13:00, Duration: 30 day, Stop date: 01/06/12 14:12:00 IVPB No Longer Active [place] 12/07/2011 [facility] Benadryl 12.5 mg, 0.25 mL, Route: IV, Drug form: INJ, Q6H, PRN Other -See Comment, Start date: 12/07/11 14:13:00, Duration: 30 day, Stop date: 01/06/12 14:12:00, itching/insomnia IV No Longer Active [place] 12/07/2011 [facility] Zofran 4 mg, 2 mL, Route: IV, Drug form: INJ, Q6H, PRN as needed for nausea/vomiting, Start date: 12/07/11 14:13:00, Duration: 30 day, Stop date: 01/06/12 14:12:00 IV No Longer Active [place] 12/07/2011 [facility] morphine Sulfate 2 mg, 1 mL, Route: IVP, Drug form: INJ, Q5Min, PRN Pain Score 4-6, Start date: 12/07/11 13:01:00, Duration: 8 doses or times, Stop date: 12/08/11 0:00:00 IVP No Longer Active [place] 12/07/2011 [facility] naloxone 0.04 mg, 0.1 mL, Route: IVP, Drug form: INJ, Q2MIN, PRN Narcotic Reversal, Start date: 12/07/11 13:01:00, Duration: 8 doses or times, Stop date: 12/08/11 0:00:00 IVP No Longer Active Aditya 12/07/2011 [facility] flumazenil 0.2 mg, 2 mL, Route: IVP, Drug form: INJ, PRN, PRN Benzodiazepine Reversal, Initial dose, Start date: 12/07/11 13:01:00, Stop date: 12/08/11 0:00:00 IVP No Longer Active [place] 12/07/2011 [facility] ondansetron 4 mg, 2 mL, Route: IVP, Drug form: INJ, ONCE, PRN Nausea & Vomiting, Start date: 12/07/11 13:01:00 IVP No Longer Active Adity[place] 12/07/2011 [facility] dexamethasone 4 mg, 1 mL, Route: IVP, Drug form: INJ, ONCE, PRN Nausea & Vomiting, Start date: 12/07/11 13:01:00 IVP No Longer Active [place] 12/07/2011 [facility] nalbuphine 2 mg, 0.2 mL, Route: IVP, Drug form: INJ, Q2H, PRN Itching, Start date: 12/07/11 12:36:00, Duration: 5 doses or times, Stop date: Limited # of times IVP No Longer Active [facility] 12/07/2011 [facility] ondansetron 4 mg, 2 mL, Route: IVP, Drug form: INJ, ONCE, PRN Nausea & Vomiting, Start date: 12/07/11 12:36:00 IVP No Longer Active [facility] 12/07/2011 [facility] morphine 1 mg/ml DITCHER (30 mg/30 mL) INJ Syringe 30 mg 30 mg, 30 mL, Route: IV, Initial Loading Dose: 2 mg, DITCHER Dose: 1 mg, DITCHER Lockout: 10 minutes, Continuous Basal Rate: 0 mg, 4 Hour Limit (In MG): 30, Drug Form: INJ, Continuous, Pain, Start date: 12/07/11 12:36:00, Duration: 30 day, Stop date: ... IV No Longer Active [facility] 12/07/2011 [facility] naloxone 0.04 mg, 0.1 mL, Route: IVP, Drug form: INJ, Q2MIN, PRN Narcotic Reversal, Start date: 12/07/11 12:36:00, Duration: 30 day, Stop date: 01/06/12 12:35:00 IVP No Longer Active [facility] 12/07/2011 [facility] acetaminophen-hydrocodone 325 mg-10 mg/15 mL oral solution 15 mL, Route: PO, Drug Form: SOLN, Q4H, PRN Pain Score 1-3, Start date: 12/07/11 12:36:00, Duration: 30 day, Stop date: 01/06/12 12:35:00 PO No Longer Active [place] 12/07/2011 [facility] morphine Sulfate 2 mg, 1 mL, Route: IVP, Drug form: INJ, Q2H, PRN Pain Score 1-5, Start date: 12/07/11 12:36:00, Duration: 30 day, Stop date: 01/06/12 12:35:00 IVP No Longer Active [facility] 12/07/2011 [facility] Lactated Ringers Injection IV 1,000 mL 1,000 mL, Rate: 125 ml/hr, Infuse over: 8 hr, Route: IV, Dosing Weight 145 kg, Total Volume: 1,000, Start date: 12/07/11 12:36:00, Duration: 30 day, Stop date: 01/06/12 12:35:00 IV No Longer Active [place] 12/07/2011 [facility] simvastatin 80 mg oral tablet 80 mg, 1 tab, PO, Daily, 90 tab, Substitution Allowed, TAB PO No Longer Active 12/07/2011 [facility] Mefoxin 2 gm, Route: IVPB, Drug form: INJ, PRE OP, Start date: 12/07/11 3:00:00, Duration: 1 day, Stop date: 12/08/11 2:59:00 IVPB No Longer Active [facility] 12/07/2011 [facility] heparin 5,000 unit, 1 mL, Route: SUB-Q, Drug form: INJ, PRE OP, Start date: 12/07/11 3:00:00, Duration: 1 day, Stop date: 12/08/11 2:59:00 SUB-Q No Longer Active [place] 12/07/2011 [facility] Transderm-Scop 1 patch, Route: TOP, Drug form: ERFILM, PRE OP, Start date: 12/07/11 3:00:00, Duration: 1 day, Stop date: 12/08/11 2:59:00 TOP No Longer Active [place] 12/07/2011 [facility] Centrum oral tablet 1 tab, PO, Daily, 30 tab, Substitution Allowed, Maintenance, TAB PO No Longer Active 11/28/2011 [facility] aspirin 325 mg tablet 975 mg, 3 tab, PO, Daily, Substitution Allowed PO No Longer Active [facility] 11/28/2011 [facility] spironolactone 50 mg oral tablet PO, Daily, Substitution Allowed PO No Longer Active 11/28/2011 [facility] metolazone 5 mg oral tablet 5 mg, 1 tab, PO, Daily, 30 tab, Substitution Allowed, TAB PO No Longer Active 11/28/2011 [facility] ranitidine 150 mg oral tablet 150 mg, 1 tab, PO, BID, 6 tab, Substitution Allowed PO No Longer Active 11/28/2011 [facility] AMIODarone 400 mg oral tablet 400 mg, 1 tab, PO, Daily, 30 tab, Substitution Allowed, TAB PO Active 11/28/2011 [facility] Plavix 75 mg oral tablet 75 mg, 1 tab, PO, Daily, 30 tab, Substitution Allowed, TAB PO Active 11/28/2011 [facility] Allergies, Adverse Reactions, Alerts Substance Category Reaction Severity Reaction type Status Date Reported Comments Source Immunizations Immunization Date Given Site Status Last Updated Comments Source diphtheria/pertussis, acel/tetanus adult 07/13/2014 Left deltoid completed Elvin DOMENICO Morejon, DOMENICO Toribio, [place],[facility] Results Order Name Results Value Reference Range Date Interpretation Comments Source CHEM PANEL A/G Ratio 1.0 0.7 - 1.6 09/25/2014 [facility] CHEM PANEL Globulin 2.8 g/dL 2.0 - 4.0 09/25/2014 [facility] CHEM PANEL B/C Ratio 21 6 - 25 09/25/2014 [facility] CHEM PANEL AGAP 14.7 meq/L 10.0 - 20.0 09/25/2014 [facility] CHEM PANEL eGFR 100 mL/min/1.73m2 09/25/2014 1Result Comment: The eGFR is calculated using [...] from the National Kidney Disease Education Program (NKDEP) which additionally recommends that when the eGFR is used in patients with extremes of body mass index for purposes of drug dosing, the eGFR should be multiplied by the estimated BMI. [facility] CHEM PANEL Glucose Lvl 117 mg/dL 70 - 99 09/25/2014 4Interpretive Data: Adult reference range values reflect the clinical guidelines of the [place] [employer]. [facility] CHEM PANEL CO2 21 meq/L 24 - 32 09/25/2014 [facility] CHEM PANEL Calcium Lvl 7.9 mg/dL 8.5 - 10.5 09/25/2014 [facility] CHEM PANEL BUN 17 mg/dL 7 - 22 09/25/2014 [facility] CHEM PANEL AST 8 unit/L 0 - 37 09/25/2014 [facility] CHEM PANEL Bili Total 0.3 mg/dL 0.2 - 1.3 09/25/2014 [facility] CHEM PANEL Alk Phos 51 unit/L 39 - 136 09/25/2014 [facility] CHEM PANEL Albumin Lvl 2.9 g/dL 3.5 - 5.0 09/25/2014 [facility] CHEM PANEL ALT 13 unit/L 0 - 65 09/25/2014 [facility] CHEM PANEL Total Protein 5.7 g/dL 6.4 - 8.4 09/25/2014 [facility] CHEM PANEL Chloride Lvl 114 meq/L 95 - 109 09/25/2014 [facility] CHEM PANEL Sodium Lvl 146 meq/L 135 - 145 09/25/2014 [facility] CHEM PANEL Potassium Lvl 3.7 meq/L 3.5 - 5.1 09/25/2014 [facility] CHEM PANEL Creatinine Lvl 0.8 mg/dL 0.5 - 1.4 09/25/2014 [facility] HEMATOLOGY PTT 27.2 s 22.9 - 35.8 09/25/2014 11Interpretive Data: Heparin Therapeutic Range: 57 - 92 Seconds [facility] HEMATOLOGY PT 14.3 s 12.0 - 14.7 09/25/2014 [facility] HEMATOLOGY INR 1.10 0.85 - 1.17 09/25/2014 8Interpretive Data: RECOMMENDED RANGES FOR PROTIME INR: 2.0-3.0 for most medical and surgical thromboembolic states. 2.5-3.5 for artificial heart valves and recurrent embolism. INR SHOULD BE USED ONLY FOR PATIENTS ON STABLE ANTICOAGULANT THERAPY. [facility] HEMATOLOGY MCH 23.4 pg 27.0 - 31.0 09/25/2014 [facility] HEMATOLOGY MCV 77.4 fL 80.0 - 94.0 09/25/2014 [facility] HEMATOLOGY MPV 11.9 fL 7.4 - 10.4 09/25/2014 [facility] HEMATOLOGY RDW 16.8 % 11.5 - 14.5 09/25/2014 [facility] HEMATOLOGY Platelet 156 K/CMM 133 - 450 09/25/2014 [facility] HEMATOLOGY MCHC 30.3 g/dL 32.0 - 36.0 09/25/2014 [facility] HEMATOLOGY Hgb 8.4 g/dL 14.0 - 18.0 09/25/2014 [facility] HEMATOLOGY RBC 3.57 M/CMM 4.70 - 6.10 09/25/2014 [facility] HEMATOLOGY WBC 8.9 K/CMM 3.7 - 10.4 09/25/2014 [facility] HEMATOLOGY Hct 27.6 % 42.0 - 54.0 09/25/2014 [facility] HEMATOLOGY Eosinophils 0.4 % 0.0 - 4.0 09/25/2014 [facility] HEMATOLOGY Basophils 0.4 % 0.0 - 1.0 09/25/2014 [facility] HEMATOLOGY Monocytes # 0.8 K/CMM 0.0 - 0.8 09/25/2014 [facility] HEMATOLOGY Microcyte 1+ *ABN* (09/25/14 12:25 AM) None Seen 09/25/2014 [facility] HEMATOLOGY Segs-Bands # 6.6 K/CMM 1.5 - 8.1 09/25/2014 [facility] HEMATOLOGY Lymphocytes # 1.6 K/CMM 1.0 - 5.5 09/25/2014 [facility] HEMATOLOGY Segs 72.2 % 45.0 - 75.0 09/25/2014 [facility] HEMATOLOGY Monocytes 9.2 % 2.0 - 12.0 09/25/2014 [facility] HEMATOLOGY Lymphocytes 17.8 % 20.0 - 40.0 09/25/2014 [facility] Brain wo contrast CT Brain wo contrast CT EXAM: CT HEAD WITHOUT CONTRAST INDICATION: Bleeding COMPARISON: September 10, 2014 TECHNIQUE: Contiguous axial images of the brain are obtained from skull base to vertex without administration of intravenous contrast. DISCUSSION: Interval postoperative changes of right-sided cranioplasty with subjacent extra-axial fluid and hemorrhage measuring a maximal width of 6 mm. No parenchymal hemorrhage is identified. No subfalcine or transtentorial herniation. No hydrocephalus. IMPRESSION: Interval postoperative changes of right-sided cranioplasty with satisfactory postoperative appearance. 09/23/2014 - - Read by: Susan Bradley MD Dictated Date/time: 09/23/14 17:12 Electronically Signed by: Susan Bradley MD 09/23/14 17:15 FINAL REPORT [facility] ELECTROLYTES AGAP 12.2 meq/L 10.0 - 20.0 09/23/2014 [facility] ELECTROLYTES eGFR 95 mL/min/1.73m2 09/23/2014 2Result Comment: The eGFR is calculated using the [...] from the National Kidney Disease Education Program (NKDEP) which additionally recommends that when the eGFR is used in patients with extremes of body mass index for purposes of drug dosing, the eGFR should be multiplied by the estimated BMI. [facility] ELECTROLYTES Glucose Lvl 90 mg/dL 70 - 99 09/23/2014 5Interpretive Data: Adult reference range values reflect the clinical guidelines of the [place] [employer]. [facility] ELECTROLYTES Potassium Lvl 4.2 meq/L 3.5 - 5.1 09/23/2014 [facility] ELECTROLYTES Sodium Lvl 138 meq/L 135 - 145 09/23/2014 [facility] ELECTROLYTES Creatinine Lvl 0.9 mg/dL 0.5 - 1.4 09/23/2014 [facility] ELECTROLYTES BUN 19 mg/dL 7 - 22 09/23/2014 [facility] ELECTROLYTES Chloride Lvl 105 meq/L 95 - 109 09/23/2014 [facility] ELECTROLYTES CO2 25 meq/L 24 - 32 09/23/2014 [facility] ELECTROLYTES Calcium Lvl 8.3 mg/dL 8.5 - 10.5 09/23/2014 [facility] HEMATOLOGY Hypochrom 1+ (09/23/14 10:54 AM) None Seen 09/23/2014 [facility] HEMATOLOGY Large Plt Moderate *ABN* (09/23/14 10:54 AM) None Seen 09/23/2014 [facility] HEMATOLOGY Monocytes # 0.2 K/CMM 0.0 - 0.8 09/23/2014 [facility] HEMATOLOGY Lymphocytes # 1.5 K/CMM 1.0 - 5.5 09/23/2014 [facility] HEMATOLOGY Microcyte 1+ *ABN* (09/23/14 10:54 AM) None Seen 09/23/2014 [facility] HEMATOLOGY Basophils # 0.1 K/CMM 0.0 - 0.2 09/23/2014 [facility] HEMATOLOGY Segs 70.9 % 45.0 - 75.0 09/23/2014 [facility] HEMATOLOGY Lymphocytes 23.6 % 20.0 - 40.0 09/23/2014 [facility] HEMATOLOGY Segs-Bands # 4.4 K/CMM 1.5 - 8.1 09/23/2014 [facility] HEMATOLOGY Monocytes 4.0 % 2.0 - 12.0 09/23/2014 [facility] HEMATOLOGY Eosinophils 0.7 % 0.0 - 4.0 09/23/2014 [facility] HEMATOLOGY Basophils 0.8 % 0.0 - 1.0 09/23/2014 [facility] HEMATOLOGY INR 1.10 0.85 - 1.17 09/23/2014 9Interpretive Data: RECOMMENDED RANGES FOR PROTIME INR: 2.0-3.0 for most medical and surgical thromboembolic states. 2.5-3.5 for artificial heart valves and recurrent embolism. INR SHOULD BE USED ONLY FOR PATIENTS ON STABLE ANTICOAGULANT THERAPY. [facility] HEMATOLOGY PT 14.3 s 12.0 - 14.7 09/23/2014 [facility] HEMATOLOGY PTT 29.2 s 22.9 - 35.8 09/23/2014 12Interpretive Data: Heparin Therapeutic Range: 57 - 92 Seconds [facility] HEMATOLOGY MPV 11.5 fL 7.4 - 10.4 09/23/2014 [facility] HEMATOLOGY Platelet 171 K/CMM 133 - 450 09/23/2014 [facility] HEMATOLOGY MCHC 30.1 g/dL 32.0 - 36.0 09/23/2014 [facility] HEMATOLOGY RDW 17.0 % 11.5 - 14.5 09/23/2014 [facility] HEMATOLOGY MCH 23.4 pg 27.0 - 31.0 09/23/2014 [facility] HEMATOLOGY MCV 77.9 fL 80.0 - 94.0 09/23/2014 [facility] HEMATOLOGY Hct 35.8 % 42.0 - 54.0 09/23/2014 [facility] HEMATOLOGY RBC 4.60 M/CMM 4.70 - 6.10 09/23/2014 [facility] HEMATOLOGY Hgb 10.8 g/dL 14.0 - 18.0 09/23/2014 [facility] HEMATOLOGY WBC 6.2 K/CMM 3.7 - 10.4 09/23/2014 [facility] BLOOD BANK RESULTS Antibody Scrn Negative (09/23/14 6:43 AM) 09/23/2014 [facility] BLOOD BANK RESULTS ABO/Rh AB POS 09/23/2014 [facility] CHEM PANEL eGFR 100 mL/min/1.73m2 09/23/2014 3Result Comment: The eGFR is calculated using the [...] from the National Kidney Disease Education Program (NKDEP) which additionally recommends that when the eGFR is used in patients with extremes of body mass index for purposes of drug dosing, the eGFR should be multiplied by the estimated BMI. [facility] CHEM PANEL Potassium Lvl 4.0 meq/L 3.5 - 5.1 09/23/2014 [facility] CHEM PANEL CO2 24 meq/L 24 - 32 09/23/2014 [facility] CHEM PANEL Chloride Lvl 108 meq/L 95 - 109 09/23/2014 [facility] CHEM PANEL Calcium Lvl 8.6 mg/dL 8.5 - 10.5 09/23/2014 [facility] CHEM PANEL Creatinine Lvl 0.8 mg/dL 0.5 - 1.4 09/23/2014 [facility] CHEM PANEL Sodium Lvl 143 meq/L 135 - 145 09/23/2014 [facility] CHEM PANEL AGAP 15.0 meq/L 10.0 - 20.0 09/23/2014 [facility] CHEM PANEL Glucose Lvl 90 mg/dL 70 - 99 09/23/2014 6Interpretive Data: Adult reference range values reflect the clinical guidelines of the [place] [employer]. [facility] CHEM PANEL BUN 21 mg/dL 7 - 22 09/23/2014 [facility] HEMATOLOGY PT 14.0 s 12.0 - 14.7 09/23/2014 [facility] HEMATOLOGY PTT 28.7 s 22.9 - 35.8 09/23/2014 13Interpretive Data: Heparin Therapeutic Range: 57 - 92 Seconds [facility] HEMATOLOGY INR 1.08 0.85 - 1.17 09/23/2014 10Interpretive Data: RECOMMENDED RANGES FOR PROTIME INR: 2.0-3.0 for most medical and surgical thromboembolic states. 2.5-3.5 for artificial heart valves and recurrent embolism. INR SHOULD BE USED ONLY FOR PATIENTS ON STABLE ANTICOAGULANT THERAPY. [facility] HEMATOLOGY MPV 12.5 fL 7.4 - 10.4 09/23/2014 [facility] HEMATOLOGY Platelet 184 K/CMM 133 - 450 09/23/2014 [facility] HEMATOLOGY RDW 16.1 % 11.5 - 14.5 09/23/2014 [facility] HEMATOLOGY MCHC 29.6 g/dL 32.0 - 36.0 09/23/2014 [facility] HEMATOLOGY WBC 5.7 K/CMM 3.7 - 10.4 09/23/2014 [facility] HEMATOLOGY RBC 4.73 M/CMM 4.70 - 6.10 09/23/2014 [facility] HEMATOLOGY Hgb 10.9 g/dL 14.0 - 18.0 09/23/2014 7Result Comment: rechecked results [facility] HEMATOLOGY Hct 36.7 % 42.0 - 54.0 09/23/2014 [facility] HEMATOLOGY MCV 77.7 fL 80.0 - 94.0 09/23/2014 [facility] HEMATOLOGY MCH 23.0 pg 27.0 - 31.0 09/23/2014 [facility] HEMATOLOGY Bands 0.0 % 0.0 - 11.0 09/23/2014 [facility] HEMATOLOGY Lymphocytes 51.0 % 20.0 - 40.0 09/23/2014 [facility] HEMATOLOGY Segs 46.0 % 45.0 - 75.0 09/23/2014 [facility] HEMATOLOGY Lymphocytes # 2.9 K/CMM 1.0 - 5.5 09/23/2014 [facility] HEMATOLOGY Monocytes # 0.2 K/CMM 0.0 - 0.8 09/23/2014 [facility] HEMATOLOGY Schistocyte Rare 09/23/2014 [facility] HEMATOLOGY Microcyte 1+ *ABN* (09/23/14 6:43 AM) None Seen 09/23/2014 [facility] HEMATOLOGY Plt Morph Normal (09/23/14 6:43 AM) 09/23/2014 [facility] HEMATOLOGY Atypical Lymphs 0.0 % <=0.0 % 09/23/2014 [facility] HEMATOLOGY Monocytes 3.0 % 2.0 - 12.0 09/23/2014 [facility] HEMATOLOGY Segs-Bands # 2.6 K/CMM 1.5 - 8.1 09/23/2014 [facility] HEMATOLOGY Hgb 8.8 g/dL 14.0 - 18.0 07/16/2014 [facility] HEMATOLOGY Hct 26.3 % 42.0 - 54.0 07/16/2014 [facility] CHEM PANEL Phosphorus 3.1 mg/dL 2.5 - 4.5 07/15/2014 [facility] CHEM PANEL Magnesium Lvl 2.0 mg/dL 1.8 - 2.4 07/15/2014 [facility] ELECTROLYTES AGAP 10.9 meq/L 10.0 - 20.0 07/15/2014 [facility] ELECTROLYTES eGFR 84 mL/min/1.73m2 07/15/2014 1Result Comment: The eGFR is calculated using [...] from the National Kidney Disease Education Program (NKDEP) which additionally recommends that when the eGFR is used in patients with extremes of body mass index for purposes of drug dosing, the eGFR should be multiplied by the estimated BMI. [facility] ELECTROLYTES Chloride Lvl 110 meq/L 95 - 109 07/15/2014 [facility] ELECTROLYTES Calcium Lvl 8.6 mg/dL 8.5 - 10.5 07/15/2014 [facility] ELECTROLYTES CO2 27 meq/L 24 - 32 07/15/2014 [facility] ELECTROLYTES Glucose Lvl 106 mg/dL 70 - 99 07/15/2014 4Interpretive Data: Adult reference range values reflect the clinical guidelines of the [place] [employer]. [facility] ELECTROLYTES BUN 16 mg/dL 7 - 22 07/15/2014 [facility] ELECTROLYTES Potassium Lvl 3.9 meq/L 3.5 - 5.1 07/15/2014 [facility] ELECTROLYTES Creatinine Lvl 1.0 mg/dL 0.5 - 1.4 07/15/2014 [facility] ELECTROLYTES Sodium Lvl 144 meq/L 135 - 145 07/15/2014 [facility] HEMATOLOGY Eosinophils 0.4 % 0.0 - 4.0 07/15/2014 [facility] HEMATOLOGY Lymphocytes 15.7 % 20.0 - 40.0 07/15/2014 [facility] HEMATOLOGY Basophils 0.4 % 0.0 - 1.0 07/15/2014 [facility] HEMATOLOGY Monocytes 12.3 % 2.0 - 12.0 07/15/2014 [facility] HEMATOLOGY Segs-Bands # 8.4 K/CMM 1.5 - 8.1 07/15/2014 [facility] HEMATOLOGY Lymphocytes # 1.9 K/CMM 1.0 - 5.5 07/15/2014 [facility] HEMATOLOGY Monocytes # 1.5 K/CMM 0.0 - 0.8 07/15/2014 [facility] HEMATOLOGY Segs 71.2 % 45.0 - 75.0 07/15/2014 [facility] HEMATOLOGY RDW 14.2 % 11.5 - 14.5 07/15/2014 [facility] HEMATOLOGY MCHC 33.2 g/dL 32.0 - 36.0 07/15/2014 [facility] HEMATOLOGY MPV 10.2 fL 7.4 - 10.4 07/15/2014 [facility] HEMATOLOGY Platelet 215 K/CMM 133 - 450 07/15/2014 [facility] HEMATOLOGY MCH 30.1 pg 27.0 - 31.0 07/15/2014 [facility] HEMATOLOGY MCV 90.6 fL 80.0 - 94.0 07/15/2014 [facility] HEMATOLOGY Hct 25.2 % 42.0 - 54.0 07/15/2014 [facility] HEMATOLOGY Hgb 8.4 g/dL 14.0 - 18.0 07/15/2014 [facility] HEMATOLOGY RBC 2.78 M/CMM 4.70 - 6.10 07/15/2014 [facility] HEMATOLOGY WBC 11.8 K/CMM 3.7 - 10.4 07/15/2014 [facility] HEMATOLOGY INR 1.17 0.85 - 1.17 07/15/2014 7Interpretive Data: RECOMMENDED RANGES FOR PROTIME INR: 2.0-3.0 for most medical and surgical thromboembolic states. 2.5-3.5 for artificial heart valves and recurrent embolism. INR SHOULD BE USED ONLY FOR PATIENTS ON STABLE ANTICOAGULANT THERAPY. [facility] HEMATOLOGY PT 15.0 s 12.0 - 14.7 07/15/2014 [facility] HEMATOLOGY PTT 26.4 s 22.9 - 35.8 07/15/2014 10Interpretive Data: Heparin Therapeutic Range: 57 - 92 Seconds [facility] PARATHYROID PROFILE Ca Norm WB 1.16 mMol/L 1.05 - 1.25 07/15/2014 [facility] PARATHYROID PROFILE Ca Ion WB 1.14 mMol/L 1.05 - 1.25 07/15/2014 [facility] CHEM PANEL eGFR 75 mL/min/1.73m2 07/14/2014 2Result Comment: The eGFR is calculated using the [...] from the National Kidney Disease Education Program (NKDEP) which additionally recommends that when the eGFR is used in patients with extremes of body mass index for purposes of drug dosing, the eGFR should be multiplied by the estimated BMI. [facility] CHEM PANEL Globulin 2.8 g/dL 2.0 - 4.0 07/14/2014 [facility] CHEM PANEL Alk Phos 50 unit/L 39 - 136 07/14/2014 [facility] CHEM PANEL Bili Total 0.8 mg/dL 0.2 - 1.3 07/14/2014 [facility] CHEM PANEL Albumin Lvl 3.4 g/dL 3.5 - 5.0 07/14/2014 [facility] CHEM PANEL BUN 15 mg/dL 7 - 22 07/14/2014 [facility] CHEM PANEL Total Protein 6.2 g/dL 6.4 - 8.4 07/14/2014 [facility] CHEM PANEL Calcium Lvl 7.6 mg/dL 8.5 - 10.5 07/14/2014 [facility] CHEM PANEL B/C Ratio 14 6 - 25 07/14/2014 [facility] CHEM PANEL AST 12 unit/L 0 - 37 07/14/2014 [facility] CHEM PANEL AGAP 10.5 meq/L 10.0 - 20.0 07/14/2014 [facility] CHEM PANEL ALT 17 unit/L 0 - 65 07/14/2014 [facility] CHEM PANEL A/G Ratio 1.2 0.7 - 1.6 07/14/2014 [facility] CHEM PANEL Chloride Lvl 113 meq/L 95 - 109 07/14/2014 [facility] CHEM PANEL CO2 25 meq/L 24 - 32 07/14/2014 [facility] CHEM PANEL Creatinine Lvl 1.1 mg/dL 0.5 - 1.4 07/14/2014 [facility] CHEM PANEL Sodium Lvl 145 meq/L 135 - 145 07/14/2014 [facility] CHEM PANEL Potassium Lvl 3.5 meq/L 3.5 - 5.1 07/14/2014 [facility] CHEM PANEL Glucose Lvl 172 mg/dL 70 - 99 07/14/2014 5Interpretive Data: Adult reference range values reflect the clinical guidelines of the [place] [employer]. [facility] HEMATOLOGY R-time 3.9 min 5.0 - 10.0 07/14/2014 [facility] HEMATOLOGY Coag Index 3.6 -3.0-3.0 - 3.0 07/14/2014 [facility] HEMATOLOGY G-value 12.8 K d/sc 4.5 - 11.0 07/14/2014 [facility] HEMATOLOGY Max Amp 72.0 mm 50.0 - 70.0 07/14/2014 [facility] HEMATOLOGY Angle 74.1 degrees 53.0 - 72.0 07/14/2014 [facility] HEMATOLOGY K-time 1.2 min 1.0 - 3.0 07/14/2014 [facility] HEMATOLOGY TEG Data See Note 13 (07/13/14 11:08 PM) 07/14/2014 13Interpretive Data: Normal ranges are for citrated whole blood with kaolin activator. R TIME: Reflects the degree of anti-coagulation due to LMWH, unfractionated heparin, and coumadin as well as non-specific factor deficiencies. K TIME, ALPHA ANGLE, AND MA(MAX AMPLITUDE): Have been associated with the platelet release reaction and fibrin polymer formation. These parameters assess the speed of clot formation and the tensil strength of the clot. Higher levels are associated with hypercoagulable states. G VALUE: Another measure of clot strength. LY30: Percent lysis in 30 Minutes is associated with the degree of fibrinolysis. CI or COAG INDEX: A calculation from the above measured data indicating an overall hyper or hypo coagulability with values above (plus) +3.0 being relatively hypercoagulable and those below (minus) -3.0 being relatively hypocoagulable. These measurements are functional in nature with many variables and require close clinical correlation. Thromboelasography (TEG) is mostly used to monitor significant coagulopathy in trauma patients or surgical patients. It assesses gloabal (primary and secondary) hemostasis using whole blood and therefore, not expected to correlate well with conventional coagulation tests. TEG results need to be correlated with clinical evaluation for patient management. [facility] HEMATOLOGY Ly30 0.0 % 0.0 - 7.5 07/14/2014 [facility] TEG Interp Thrombelastograph results show shortened value of R and increased values of both Angle Alpha and MA. These findings are suggestive of platelet and enzymatic hypercoagulation which may be seen in early phase of DIC. Monitor for DIC with DIC panel may be indicated.CPT:[id number] 07/14/2014 [facility] HEMATOLOGY INR 1.15 0.85 - 1.17 07/14/2014 8Interpretive Data: RECOMMENDED RANGES FOR PROTIME INR: 2.0-3.0 for most medical and surgical thromboembolic states. 2.5-3.5 for artificial heart valves and recurrent embolism. INR SHOULD BE USED ONLY FOR PATIENTS ON STABLE ANTICOAGULANT THERAPY. [facility] HEMATOLOGY PT 14.8 s 12.0 - 14.7 07/14/2014 [facility] HEMATOLOGY PTT 24.7 s 22.9 - 35.8 07/14/2014 11Interpretive Data: Heparin Therapeutic Range: 57 - 92 Seconds [facility] HEMATOLOGY Hgb 9.7 g/dL 14.0 - 18.0 07/14/2014 [facility] HEMATOLOGY MCV 89.7 fL 80.0 - 94.0 07/14/2014 [facility] HEMATOLOGY Hct 28.3 % 42.0 - 54.0 07/14/2014 [facility] HEMATOLOGY RBC 3.15 M/CMM 4.70 - 6.10 07/14/2014 [facility] HEMATOLOGY WBC 9.4 K/CMM 3.7 - 10.4 07/14/2014 [facility] HEMATOLOGY Platelet 229 K/CMM 133 - 450 07/14/2014 [facility] HEMATOLOGY RDW 13.8 % 11.5 - 14.5 07/14/2014 [facility] HEMATOLOGY MCH 30.7 pg 27.0 - 31.0 07/14/2014 [facility] HEMATOLOGY MCHC 34.3 g/dL 32.0 - 36.0 07/14/2014 [facility] HEMATOLOGY MPV 10.0 fL 7.4 - 10.4 07/14/2014 [facility] HEMATOLOGY Segs-Bands # 8.6 K/CMM 1.5 - 8.1 07/14/2014 [facility] HEMATOLOGY Lymphocytes # 0.5 K/CMM 1.0 - 5.5 07/14/2014 [facility] HEMATOLOGY Monocytes 3.7 % 2.0 - 12.0 07/14/2014 [facility] HEMATOLOGY Monocytes # 0.3 K/CMM 0.0 - 0.8 07/14/2014 [facility] HEMATOLOGY Eosinophils 0.1 % 0.0 - 4.0 07/14/2014 [facility] HEMATOLOGY Segs 91.1 % 45.0 - 75.0 07/14/2014 [facility] HEMATOLOGY Lymphocytes 5.1 % 20.0 - 40.0 07/14/2014 [facility] PARATHYROID PROFILE Ca Norm WB 0.95 mMol/L 1.05 - 1.25 07/14/2014 [facility] PARATHYROID PROFILE Ca Ion WB 0.96 mMol/L 1.05 - 1.25 07/14/2014 [facility] BLOOD BANK RESULTS Platelet product Product available (07/13/14 7:15 PM) 07/14/2014 [facility] BACTERIAL - SEROLOGY MRSA by PCR Negative 16 (07/13/14 6:50 PM) 07/14/2014 16Interpretive Data: Interpretive Data: The [employer] MRSA assay is a qualitative test for the direct detection of nasal colonization with methicillin-resistant Staphylococcus aureus (MRSA) to aid in the prevention and control of MRSA infections in healthcare settings. A positive result does not indicate an infection or require treatment. A negative result does not exclude colonization or infection. The polymerase chain reaction (PCR) assay detects a proprietary sequence indicative of the integration of the SCCmec cassette into the Staphylococcus aureus chromosome, indicating the presence of MRSA DNA. The assay utilizes FDA cleared IVD reagents. Performance characteristics have been verified by the [facility] within the [facility]. The [facility] is authorized under the Clinical Laboratory Improvement Amendment of 1988 (CLIA-88) to perform high complexity testing. [facility] ELECTROLYTES AGAP 10.7 meq/L 10.0 - 20.0 07/14/2014 [facility] ELECTROLYTES eGFR 100 mL/min/1.73m2 07/14/2014 3Result Comment: The eGFR is calculated using the [...] from the National Kidney Disease Education Program (NKDEP) which additionally recommends that when the eGFR is used in patients with extremes of body mass index for purposes of drug dosing, the eGFR should be multiplied by the estimated BMI. [facility] ELECTROLYTES Creatinine Lvl 0.8 mg/dL 0.5 - 1.4 07/14/2014 [facility] ELECTROLYTES BUN 15 mg/dL 7 - 22 07/14/2014 [facility] ELECTROLYTES CO2 25 meq/L 24 - 32 07/14/2014 [facility] ELECTROLYTES Calcium Lvl 7.9 mg/dL 8.5 - 10.5 07/14/2014 [facility] ELECTROLYTES Glucose Lvl 165 mg/dL 70 - 99 07/14/2014 6Interpretive Data: Adult reference range values reflect the clinical guidelines of the [place] [employer]. [facility] ELECTROLYTES Sodium Lvl 145 meq/L 135 - 145 07/14/2014 [facility] ELECTROLYTES Chloride Lvl 113 meq/L 95 - 109 07/14/2014 [facility] ELECTROLYTES Potassium Lvl 3.7 meq/L 3.5 - 5.1 07/14/2014 [facility] HEMATOLOGY PTT 23.8 s 22.9 - 35.8 07/14/2014 12Interpretive Data: Heparin Therapeutic Range: 57 - 92 Seconds [facility] HEMATOLOGY INR 1.09 0.85 - 1.17 07/14/2014 9Interpretive Data: RECOMMENDED RANGES FOR PROTIME INR: 2.0-3.0 for most medical and surgical thromboembolic states. 2.5-3.5 for artificial heart valves and recurrent embolism. INR SHOULD BE USED ONLY FOR PATIENTS ON STABLE ANTICOAGULANT THERAPY. [facility] HEMATOLOGY PT 14.2 s 12.0 - 14.7 07/14/2014 [facility] HEMATOLOGY Max Amp 73.8 mm 50.0 - 70.0 07/14/2014 [facility] HEMATOLOGY Ly30 0.0 % 0.0 - 7.5 07/14/2014 [facility] HEMATOLOGY G-value 14.1 K d/sc 4.5 - 11.0 07/14/2014 [facility] HEMATOLOGY TEG Data See Note 14 (07/13/14 6:50 PM) 07/14/2014 14Interpretive Data: Normal ranges are for citrated whole blood with kaolin activator. R TIME: Reflects the degree of anti-coagulation due to LMWH, unfractionated heparin, and coumadin as well as non-specific factor deficiencies. K TIME, ALPHA ANGLE, AND MA(MAX AMPLITUDE): Have been associated with the platelet release reaction and fibrin polymer formation. These parameters assess the speed of clot formation and the tensil strength of the clot. Higher levels are associated with hypercoagulable states. G VALUE: Another measure of clot strength. LY30: Percent lysis in 30 Minutes is associated with the degree of fibrinolysis. CI or COAG INDEX: A calculation from the above measured data indicating an overall hyper or hypo coagulability with values above (plus) +3.0 being relatively hypercoagulable and those below (minus) -3.0 being relatively hypocoagulable. These measurements are functional in nature with many variables and require close clinical correlation. Thromboelasography (TEG) is mostly used to monitor significant coagulopathy in trauma patients or surgical patients. It assesses gloabal (primary and secondary) hemostasis using whole blood and therefore, not expected to correlate well with conventional coagulation tests. TEG results need to be correlated with clinical evaluation for patient management. [facility] HEMATOLOGY Coag Index 3.9 -3.0-3.0 - 3.0 07/14/2014 [facility] HEMATOLOGY Angle 74.0 degrees 53.0 - 72.0 07/14/2014 [facility] HEMATOLOGY K-time 1.0 min 1.0 - 3.0 07/14/2014 [facility] HEMATOLOGY R-time 4.0 min 5.0 - 10.0 07/14/2014 [facility] HEMATOLOGY TEG Interp Thrombelastograph results show shortened value of R and increased values of both Angle Alpha and MA. These findings are suggestive of platelet and enzymatic hypercoagulation which may be seen in early phase of DIC. Monitor for DIC with DIC panel may be indicated.CPT:[id number] 07/14/2014 [facility] HEMATOLOGY WBC 10.3 K/CMM 3.7 - 10.4 07/14/2014 [facility] HEMATOLOGY RBC 3.74 M/CMM 4.70 - 6.10 07/14/2014 [facility] HEMATOLOGY MCV 89.7 fL 80.0 - 94.0 07/14/2014 [facility] HEMATOLOGY MCH 30.4 pg 27.0 - 31.0 07/14/2014 [facility] HEMATOLOGY Platelet 207 K/CMM 133 - 450 07/14/2014 [facility] HEMATOLOGY MPV 11.1 fL 7.4 - 10.4 07/14/2014 [facility] HEMATOLOGY MCHC 33.9 g/dL 32.0 - 36.0 07/14/2014 [facility] HEMATOLOGY RDW 14.1 % 11.5 - 14.5 07/14/2014 [facility] HEMATOLOGY Lymphocytes # 0.4 K/CMM 1.0 - 5.5 07/14/2014 [facility] HEMATOLOGY Monocytes # 0.3 K/CMM 0.0 - 0.8 07/14/2014 [facility] HEMATOLOGY Segs-Bands # 9.7 K/CMM 1.5 - 8.1 07/14/2014 [facility] HEMATOLOGY Basophils 0.1 % 0.0 - 1.0 07/14/2014 [facility] HEMATOLOGY Segs 93.4 % 45.0 - 75.0 07/14/2014 [facility] HEMATOLOGY Monocytes 2.8 % 2.0 - 12.0 07/14/2014 [facility] HEMATOLOGY Lymphocytes 3.7 % 20.0 - 40.0 07/14/2014 [facility] HEMATOLOGY Basophils 0.1 % 0.0 - 1.0 07/13/2014 [facility] HEMATOLOGY Eosinophils 0.1 % 0.0 - 4.0 07/13/2014 [facility] HEMATOLOGY TEG Data See Note 15 (07/13/14 5:40 PM) 07/13/2014 15Interpretive Data: Normal ranges are for citrated whole blood with kaolin activator. R TIME: Reflects the degree of anti-coagulation due to LMWH, unfractionated heparin, and coumadin as well as non-specific factor deficiencies. K TIME, ALPHA ANGLE, AND MA(MAX AMPLITUDE): Have been associated with the platelet release reaction and fibrin polymer formation. These parameters assess the speed of clot formation and the tensil strength of the clot. Higher levels are associated with hypercoagulable states. G VALUE: Another measure of clot strength. LY30: Percent lysis in 30 Minutes is associated with the degree of fibrinolysis. CI or COAG INDEX: A calculation from the above measured data indicating an overall hyper or hypo coagulability with values above (plus) +3.0 being relatively hypercoagulable and those below (minus) -3.0 being relatively hypocoagulable. These measurements are functional in nature with many variables and require close clinical correlation. Thromboelasography (TEG) is mostly used to monitor significant coagulopathy in trauma patients or surgical patients. It assesses gloabal (primary and secondary) hemostasis using whole blood and therefore, not expected to correlate well with conventional coagulation tests. TEG results need to be correlated with clinical evaluation for patient management. [facility] HEMATOLOGY Ly30 0.0 % 0.0 - 7.5 07/13/2014 [facility] HEMATOLOGY G-value 13.1 K d/sc 4.5 - 11.0 07/13/2014 [facility] HEMATOLOGY Coag Index 4.0 -3.0-3.0 - 3.0 07/13/2014 [facility] HEMATOLOGY Max Amp 72.4 mm 50.0 - 70.0 07/13/2014 [facility] HEMATOLOGY K-time 0.9 min 1.0 - 3.0 07/13/2014 [facility] HEMATOLOGY Angle 77.1 degrees 53.0 - 72.0 07/13/2014 [facility] HEMATOLOGY R-time 3.9 min 5.0 - 10.0 07/13/2014 [facility] HEMATOLOGY TEG Interp Thrombelastograph results show shortened value of R and increased values of both Angle Alpha and MA. These findings are suggestive of platelet and enzymatic hypercoagulation which may be seen in early phase of DIC. Monitor for DIC with DIC panel may be indicated.CPT:[id number] 07/13/2014 [facility] BLOOD BANK RESULTS ABO/Rh AB POS 07/13/2014 [facility] BLOOD BANK RESULTS Antibody Scrn Negative (07/13/14 1:30 PM) 07/13/2014 [facility] CHEM PANEL Magnesium Lvl 1.9 mg/dL 1.8 - 2.4 07/13/2014 [facility] CHEM PANEL Phosphorus 2.9 mg/dL 2.5 - 4.5 07/13/2014 [facility] PARATHYROID PROFILE Ca Norm WB 1.05 mMol/L 1.05 - 1.25 07/13/2014 [facility] PARATHYROID PROFILE Ca Ion WB 1.07 mMol/L 1.05 - 1.25 07/13/2014 [facility] BLOOD BANK RESULTS Platelet product Product available (07/13/14 1:03 PM) 07/13/2014 [facility] BLOOD BANK RESULTS Platelet product Product available (07/13/14 12:57 PM) 07/13/2014 [facility] BLOOD BANK RESULTS ABO/Rh AB POS 07/13/2014 [facility] BLOOD [facility] RESULTS Antibody Scrn Negative (07/13/14 11:23 AM) 07/13/2014 [facility] ELECTROLYTES Sodium Lvl 141 meq/L 135 - 145 07/13/2014 [facility] ELECTROLYTES Chloride Lvl 110 meq/L 95 - 109 07/13/2014 [facility] ELECTROLYTES Potassium Lvl 3.8 meq/L 3.5 - 5.1 07/13/2014 [facility] ELECTROLYTES eGFR 84 mL/min/1.73m2 07/13/2014 1Result Comment: The eGFR is calculated using [...] from the National Kidney Disease Education Program (NKDEP) which additionally recommends that when the eGFR is used in patients with extremes of body mass index for purposes of drug dosing, the eGFR should be multiplied by the estimated BMI. [facility] ELECTROLYTES Glucose Lvl 144 mg/dL 70 - 99 07/13/2014 2Interpretive Data: Adult reference range values reflect the clinical guidelines of the [place] [employer]. [facility] ELECTROLYTES AST 27 unit/L 0 - 37 07/13/2014 [facility] ELECTROLYTES ALT 23 unit/L 0 - 65 07/13/2014 [facility] ELECTROLYTES Albumin Lvl 3.8 g/dL 3.5 - 5.0 07/13/2014 [facility] ELECTROLYTES Calcium Lvl 8.7 mg/dL 8.5 - 10.5 07/13/2014 [facility] ELECTROLYTES Total Protein 7.4 g/dL 6.4 - 8.4 07/13/2014 [facility] ELECTROLYTES CO2 21 meq/L 24 - 32 07/13/2014 [facility] ELECTROLYTES Creatinine Lvl 1.0 mg/dL 0.5 - 1.4 07/13/2014 [facility] ELECTROLYTES BUN 20 mg/dL 7 - 22 07/13/2014 [facility] ELECTROLYTES Bili Total 0.9 mg/dL 0.2 - 1.3 07/13/2014 [facility] ELECTROLYTES Alk Phos 56 unit/L 39 - 136 07/13/2014 [facility] ELECTROLYTES Globulin 3.6 g/dL 2.0 - 4.0 07/13/2014 [facility] ELECTROLYTES B/C Ratio 20 6 - 25 07/13/2014 [facility] ELECTROLYTES A/G Ratio 1.1 0.7 - 1.6 07/13/2014 [facility] ELECTROLYTES AGAP 13.8 meq/L 10.0 - 20.0 07/13/2014 [facility] PTT 22.2 s 22.9 - 35.8 07/13/2014 4Interpretive Data: Heparin Therapeutic Range: 57 - 92 Seconds [facility] INR 0.99 0.85 - 1.17 07/13/2014 3Interpretive Data: RECOMMENDED RANGES FOR PROTIME INR: 2.0-3.0 for most medical and surgical thromboembolic states. 2.5-3.5 for artificial heart valves and recurrent embolism. INR SHOULD BE USED ONLY FOR PATIENTS ON STABLE ANTICOAGULANT THERAPY. [facility] PT 13.1 s 12.0 - 14.7 07/13/2014 [facility] MPV 11.5 fL 7.4 - 10.4 07/13/2014 [facility] MCH 29.0 pg 27.0 - 31.0 07/13/2014 [facility] HEMATOLOGY MCV 90.6 fL 80.0 - 94.0 07/13/2014 [facility] HEMATOLOGY RBC 4.98 M/CMM 4.70 - 6.10 07/13/2014 [facility] HEMATOLOGY Hgb 14.4 g/dL 14.0 - 18.0 07/13/2014 [facility] HEMATOLOGY Hct 45.1 % 42.0 - 54.0 07/13/2014 [facility] HEMATOLOGY Platelet 215 K/CMM 133 - 450 07/13/2014 [facility] HEMATOLOGY RDW 14.2 % 11.5 - 14.5 07/13/2014 [facility] MCHC 32.0 g/dL 32.0 - 36.0 07/13/2014 [facility] WBC 15.7 K/CMM 3.7 - 10.4 07/13/2014 [facility] HEMATOLOGY Eosinophils # 0.1 K/CMM 0.0 - 0.5 07/13/2014 [facility] HEMATOLOGY Basophils # 0.1 K/CMM 0.0 - 0.2 07/13/2014 [facility] HEMATOLOGY Monocytes # 0.7 K/CMM 0.0 - 0.8 07/13/2014 [facility] Lymphocytes # 2.2 K/CMM 1.0 - 5.5 07/13/2014 [facility] HEMATOLOGY Segs-Bands # 12.6 K/CMM 1.5 - 8.1 07/13/2014 [facility] HEMATOLOGY Segs 80.4 % 45.0 - 75.0 07/13/2014 [facility] Lymphocytes 13.9 % 20.0 - 40.0 07/13/2014 [facility] Monocytes 4.7 % 2.0 - 12.0 07/13/2014 [facility] HEMATOLOGY Eosinophils 0.5 % 0.0 - 4.0 07/13/2014 [facility] HEMATOLOGY Basophils 0.5 % 0.0 - 1.0 07/13/2014 [facility] CHEMISTRY Chloride Lvl 98 meq/L 95 - 109 12/09/2011 Normal [facility] CHEMISTRY Calcium Lvl 9.1 mg/dL 8.5 - 10.5 12/09/2011 Normal [facility] CHEMISTRY CO2 35 meq/L 24 - 32 12/09/2011 [place] [facility] CHEMISTRY Glucose Lvl 106 mg/dL 70 - 99 12/09/2011 [facility] 2Interpretive Data: Adult reference range values reflect the clinical guidelines of the [place] [employer]. [facility] CHEMISTRY Sodium Lvl 145 meq/L 135 - 145 12/09/2011 Normal [facility] CHEMISTRY Creatinine Lvl 1.0 mg/dL 0.5 - 1.4 12/09/2011 Normal [facility] CHEMISTRY BUN 9 mg/dL 7 - 22 12/09/2011 Normal [facility] CHEMISTRY Potassium Lvl 3.5 meq/L 3.5 - 5.1 12/09/2011 Normal [facility] CHEMISTRY AGAP 15.5 meq/L 10.0 - 20.0 12/09/2011 Normal [facility] CHEMISTRY Phosphorus 2.3 mg/dL 2.5 - 4.5 12/09/2011 [facility] CHEMISTRY Magnesium Lvl 2.1 mg/dL 1.8 - 2.4 12/09/2011 Normal [facility] HEMATOLOGY Segs-Bands # 8.7 K/CMM 1.5 - 8.1 12/09/2011 [facility] HEMATOLOGY Lymphocytes # 1.3 K/CMM 1.0 - 5.5 12/09/2011 [facility] HEMATOLOGY Monocytes # 1.6 K/CMM 0.0 - 0.8 12/09/2011 [facility] HEMATOLOGY Eosinophils # 0.0 K/CMM 0.0 - 0.5 12/09/2011 [facility] HEMATOLOGY Basophils # 0.0 K/CMM 0.0 - 0.2 12/09/2011 [facility] HEMATOLOGY Segs 74.1 % 45.0 - 75.0 12/09/2011 [facility] HEMATOLOGY Lymphocytes 11.2 % 20.0 - 40.0 12/09/2011 [facility] HEMATOLOGY Monocytes 13.9 % 2.0 - 12.0 12/09/2011 [facility] HEMATOLOGY Eosinophils 0.4 % 0.0 - 4.0 12/09/2011 [facility] HEMATOLOGY Basophils 0.4 % 0.0 - 1.0 12/09/2011 [facility] HEMATOLOGY RBC 4.58 M/CMM 4.70 - 6.10 12/09/2011 [facility] HEMATOLOGY Hgb 13.7 g/dL 14.0 - 18.0 12/09/2011 [facility] HEMATOLOGY Hct 41.1 % 42.0 - 54.0 12/09/2011 [facility] HEMATOLOGY WBC 11.8 K/CMM 3.7 - 10.4 12/09/2011 [facility] HEMATOLOGY MPV 11.4 fL 7.4 - 10.4 12/09/2011 [facility] HEMATOLOGY MCV 89.8 fL 80.0 - 94.0 12/09/2011 Normal [facility] HEMATOLOGY MCH 29.9 pg 27.0 - 31.0 12/09/2011 Normal [facility] HEMATOLOGY MCHC 33.3 g/dL 32.0 - 36.0 12/09/2011 Normal [facility] HEMATOLOGY RDW 14.6 % 11.5 - 14.5 12/09/2011 [facility] HEMATOLOGY Platelet 177 K/CMM 133 - 450 12/09/2011 Normal [facility] CHEMISTRY Calcium Lvl 8.4 mg/dL 8.5 - 10.5 12/08/2011 LOW [facility] CHEMISTRY CO2 31 meq/L 24 - 32 12/08/2011 Normal [facility] CHEMISTRY AGAP 15.8 meq/L 10.0 - 20.0 12/08/2011 Normal [facility] CHEMISTRY Sodium Lvl 144 meq/L 135 - 145 12/08/2011 Normal [facility] CHEMISTRY Chloride Lvl 100 meq/L 95 - 109 12/08/2011 Normal [facility] CHEMISTRY Potassium Lvl 2.8 meq/L 3.5 - 5.1 12/08/2011 CRIT 1Result Comment: Critical Result(s) called to korina cook at _ b7 08:25:24 CDTy_lss. Read back OK. [facility] CHEMISTRY Glucose Lvl 85 mg/dL 70 - 99 12/08/2011 Normal 3Interpretive Data: Adult reference range values reflect the clinical guidelines of the [place] [employer]. [facility] CHEMISTRY BUN 11 mg/dL 7 - 22 12/08/2011 Normal [facility] CHEMISTRY Creatinine Lvl 0.9 mg/dL 0.5 - 1.4 12/08/2011 Normal [facility] CHEMISTRY Phosphorus 3.4 mg/dL 2.5 - 4.5 12/08/2011 Normal [facility] CHEMISTRY Magnesium Lvl 1.9 mg/dL 1.8 - 2.4 12/08/2011 Normal [facility] HEMATOLOGY Hgb 13.1 g/dL 14.0 - 18.0 12/08/2011 [facility] HEMATOLOGY RBC 4.36 M/CMM 4.70 - 6.10 12/08/2011 [facility] HEMATOLOGY WBC 9.6 K/CMM 3.7 - 10.4 12/08/2011 [facility] HEMATOLOGY RDW 14.9 % 11.5 - 14.5 12/08/2011 [facility] HEMATOLOGY MPV 11.7 fL 7.4 - 10.4 12/08/2011 [facility] HEMATOLOGY MCV 89.4 fL 80.0 - 94.0 12/08/2011 [facility] HEMATOLOGY Hct 39.0 % 42.0 - 54.0 12/08/2011 [facility] HEMATOLOGY MCHC 33.7 g/dL 32.0 - 36.0 12/08/2011 [facility] HEMATOLOGY MCH 30.1 pg 27.0 - 31.0 12/08/2011 [facility] HEMATOLOGY Platelet 159 K/CMM 133 - 450 12/08/2011 [facility] HEMATOLOGY Basophils # 0.0 K/CMM 0.0 - 0.2 12/08/2011 [facility] HEMATOLOGY Segs 70.9 % 45.0 - 75.0 12/08/2011 [facility] HEMATOLOGY Plt Morph Normal (12/08/2011 04:30:00) 12/08/2011 [facility] HEMATOLOGY Eosinophils # 0.0 K/CMM 0.0 - 0.5 12/08/2011 [facility] HEMATOLOGY Lymphocytes 15.0 % 20.0 - 40.0 12/08/2011 [facility] HEMATOLOGY Monocytes 13.5 % 2.0 - 12.0 12/08/2011 [facility] HEMATOLOGY Eosinophils 0.4 % 0.0 - 4.0 12/08/2011 [facility] HEMATOLOGY Basophils 0.2 % 0.0 - 1.0 12/08/2011 [facility] HEMATOLOGY Segs-Bands # 6.8 K/CMM 1.5 - 8.1 12/08/2011 [facility] HEMATOLOGY Lymphocytes # 1.4 K/CMM 1.0 - 5.5 12/08/2011 [facility] HEMATOLOGY Monocytes # 1.3 K/CMM 0.0 - 0.8 12/08/2011 [facility] HEMATOLOGY RBC Morph Normal (12/08/2011 04:30:00) 12/08/2011 Normal [facility] BLOOD BANK RESULTS ABO/Rh AB POS 12/07/2011 Unknown [facility] BLOOD BANK RESULTS Antibody Scrn Negative (12/07/2011 06:00:00) 12/07/2011 Normal [facility] CHEMISTRY Globulin 3.1 g/dL 2.0 - 4.0 11/28/2011 Normal [facility] CHEMISTRY A/G Ratio 1.5 0.7 - 1.6 11/28/2011 Normal [facility] CHEMISTRY B/C Ratio 19 6 - 25 11/28/2011 Normal [facility] CHEMISTRY AGAP 13.8 meq/L 10.0 - 20.0 11/28/2011 Normal [facility] CHEMISTRY Alk Phos 46 U/L 39 - 136 11/28/2011 Normal [facility] CHEMISTRY Albumin Lvl 4.6 g/dL 3.5 - 5.0 11/28/2011 Normal [facility] CHEMISTRY ALT 63 U/L 0 - 65 11/28/2011 Normal [facility] CHEMISTRY Total Protein 7.7 g/dL 6.4 - 8.4 11/28/2011 Normal [facility] CHEMISTRY AST 42 U/L 0 - 37 11/28/2011 [facility] CHEMISTRY Calcium Lvl 9.3 mg/dL 8.5 - 10.5 11/28/2011 Normal [facility] CHEMISTRY Bili Total 1.0 mg/dL 0.2 - 1.3 11/28/2011 Normal [facility] CHEMISTRY Creatinine Lvl 1.4 mg/dL 0.5 - 1.4 11/28/2011 Normal [facility] CHEMISTRY BUN 27 mg/dL 7 - 22 11/28/2011 [facility] CHEMISTRY Glucose Lvl 92 mg/dL 70 - 99 11/28/2011 Normal 4Interpretive Data: Adult reference range values reflect the clinical guidelines of the [place] [employer]. [facility] CHEMISTRY CO2 31 meq/L 24 - 32 11/28/2011 Normal [facility] CHEMISTRY Sodium Lvl 141 meq/L 135 - 145 11/28/2011 Normal [facility] CHEMISTRY Chloride Lvl 100 meq/L 95 - 109 11/28/2011 Normal [facility] CHEMISTRY Potassium Lvl 3.8 meq/L 3.5 - 5.1 11/28/2011 Normal [facility] HEMATOLOGY Segs-Bands # 6.0 K/CMM 1.5 - 8.1 11/28/2011 Normal [facility] HEMATOLOGY Basophils 0.5 % 0.0 - 1.0 11/28/2011 [facility] HEMATOLOGY Eosinophils 0.8 % 0.0 - 4.0 11/28/2011 Normal [facility] HEMATOLOGY Lymphocytes 22.5 % 20.0 - 40.0 11/28/2011 Normal [facility] HEMATOLOGY Segs 66.3 % 45.0 - 75.0 11/28/2011 [facility] HEMATOLOGY Monocytes 9.9 % 2.0 - 12.0 11/28/2011 [facility] HEMATOLOGY Basophils # 0.0 K/CMM 0.0 - 0.2 11/28/2011 [facility] HEMATOLOGY Eosinophils # 0.1 K/CMM 0.0 - 0.5 11/28/2011 [facility] HEMATOLOGY Monocytes # 0.9 K/CMM 0.0 - 0.8 11/28/2011 [facility] HEMATOLOGY Lymphocytes # 2.1 K/CMM 1.0 - 5.5 11/28/2011 [facility] HEMATOLOGY MCHC 33.6 g/dL 32.0 - 36.0 11/28/2011 [facility] HEMATOLOGY MPV 11.0 fL 7.4 - 10.4 11/28/2011 [facility] HEMATOLOGY Platelet 231 K/CMM 133 - 450 11/28/2011 [facility] HEMATOLOGY RDW 14.4 % 11.5 - 14.5 11/28/2011 [facility] HEMATOLOGY MCH 29.9 pg 27.0 - 31.0 11/28/2011 [facility] HEMATOLOGY MCV 89.0 fL 80.0 - 94.0 11/28/2011 [facility] HEMATOLOGY Hct 43.8 % 42.0 - 54.0 11/28/2011 [facility] HEMATOLOGY RBC 4.92 M/CMM 4.70 - 6.10 11/28/2011 [facility] HEMATOLOGY Hgb 14.7 g/dL 14.0 - 18.0 11/28/2011 [facility] HEMATOLOGY WBC 9.1 K/CMM 3.7 - 10.4 11/28/2011 Normal [facility] URINALYSIS UA Urobilinogen <=1.0 mg/dL
*NA*
(11/28/2011 12:15:00) <sup> </sup> 0.1 - 1.0 11/28/2011 NA [facility] URINALYSIS UA Ketones TR 11/28/2011 NA [facility] URINALYSIS Micro? Performed *NA* (11/28/2011 12:15:00) 11/28/2011 NA [facility] URINALYSIS UA Bacteria Occasional /HPF *NA* (11/28/2011 12:15:00) None Seen 11/28/2011 NA [facility] URINALYSIS UA Mucus Many /LPF *ABN* (11/28/2011 12:15:00) None Seen 11/28/2011 ABN [facility] URINALYSIS UA WBC 2 /HPF 0 - 5 11/28/2011 Normal [facility] URINALYSIS UA RBC null 0 - 2 11/28/2011 Normal [facility] URINALYSIS UA Leuk Est Trace *ABN* (11/28/2011 12:15:00) Negative 11/28/2011 ABN [facility] URINALYSIS UA Nitrite Negative (11/28/2011 12:15:00) Negative 11/28/2011 Normal [facility] URINALYSIS UA Sq Epi Few /LPF *NA* (11/28/2011 12:15:00) Few 11/28/2011 NA [facility] URINALYSIS UA Bili Negative *NA* (11/28/2011 12:15:00) Negative 11/28/2011 NA [facility] URINALYSIS UA Blood Negative (11/28/2011 12:15:00) Negative 11/28/2011 Normal [facility] URINALYSIS UA Turbidity Clear (11/28/2011 12:15:00) Clear 11/28/2011 Normal [facility] URINALYSIS UA Spec Grav 1.027 <=1.030 11/28/2011 Normal [facility] URINALYSIS UA Protein 30 mg/dL *ABN* (11/28/2011 12:15:00) Negative 11/28/2011 ABN [facility] URINALYSIS UA pH 6.0 5.0 - 8.0 11/28/2011 Normal [facility] URINALYSIS UA Glucose Negative mg/dL *NA* (11/28/2011 12:15:00) Negative 11/28/2011 NA [facility] URINALYSIS UA Color Dark Yellow *NA* (11/28/2011 12:15:00) Yellow 11/28/2011 NA [facility] Vital Signs Vital Sign Value Date Comments Source [facility] 66 11/19/2014 [facility] Temperature Oral (F) 97.7 F 11/19/2014 [facility] Neuro Heart Rate 65 11/19/2014 [facility] Systolic (mm Hg) 130 11/19/2014 [facility] Diastolic (mm Hg) 87 11/19/2014 [facility] Neuro Weight 240.0 10/08/2014 [facility] Height 66 10/08/2014 [facility] Neuro Temperature Oral (F) 98.9 F 10/08/2014 [facility] Neuro Heart Rate 61 10/08/2014 [facility] Systolic (mm Hg) 118 10/08/2014 [facility] Diastolic (mm Hg) 79 10/08/2014 [facility] Neuro Temperature Oral (F) 96.6 F 09/25/2014 [facility] Systolic (mm Hg) 106 09/25/2014 [facility] Diastolic (mm Hg) 67 09/25/2014 [facility] Temperature Oral (F) 97.0 F 09/25/2014 [facility] Systolic (mm Hg) 104 09/25/2014 [facility] Diastolic (mm Hg) 54 09/25/2014 [facility] Systolic (mm Hg) 110 09/25/2014 [facility] Diastolic (mm Hg) 57 09/25/2014 [facility] Temperature Oral (F) 97.5 F 09/25/2014 [facility] Respitory Rate 18 09/24/2014 [facility] Respitory Rate 16 09/24/2014 [facility] Respitory Rate 18 09/24/2014 [facility] Weight 109.091 09/23/2014 [facility] BMI Calculated 16.25 09/23/2014 [facility] Height 259.08 cm 09/23/2014 [facility] Weight 109.091 09/23/2014 [facility] BMI Calculated 38.82 09/23/2014 [facility] Height 167.64 cm 09/23/2014 [facility] Height 167.64 cm 09/22/2014 [facility] Weight 109.091 09/22/2014 [facility] BMI Calculated 38.82 09/22/2014 [facility] Weight 245.0 09/10/2014 [facility] Neuro Height 67 09/10/2014 [facility] Neuro Temperature Oral (F) 98.6 F 09/10/2014 [facility] Neuro Heart Rate 53 09/10/2014 [facility] Systolic (mm Hg) 128 09/10/2014 [facility] Diastolic (mm Hg) 74 09/10/2014 [facility] Weight 256.0 07/30/2014 [facility] Height 67 07/30/2014 [facility] Neuro Temperature Oral (F) 98.4 F 07/30/2014 [facility] Neuro Heart Rate 52 07/30/2014 [facility] Systolic (mm Hg) 130 07/30/2014 [facility] Diastolic (mm Hg) 83 07/30/2014 [facility] Neuro Heart Rate 61 07/16/2014 [facility] Diastolic (mm Hg) 52 07/16/2014 [facility] Heart Rate 56 07/16/2014 [facility] Temperature Oral (F) 98.2 F 07/16/2014 [facility] Respitory Rate 17 07/16/2014 [facility] Systolic (mm Hg) 106 07/16/2014 [facility] Systolic (mm Hg) 140 07/16/2014 [facility] Diastolic (mm Hg) 68 07/16/2014 [facility] Respitory Rate 31 07/16/2014 [facility] Respitory Rate 18 07/16/2014 [facility] Diastolic (mm Hg) 53 07/16/2014 [facility] Systolic (mm Hg) 97 07/16/2014 [facility] Temperature Oral (F) 98 F 07/16/2014 [facility] Heart Rate 54 07/16/2014 [facility] Temperature Oral (F) 99 F 07/16/2014 [facility] Weight 125.227 07/14/2014 [facility] Weight 120 07/13/2014 [facility] BMI Calculated 43.03 07/13/2014 [facility] Height 167 cm 07/13/2014 [facility] Diastolic (mm Hg) 60 07/13/2014 [facility] Systolic (mm Hg) 125 07/13/2014 [facility] Respitory Rate 21 07/13/2014 [facility] Diastolic (mm Hg) 60 07/13/2014 [facility] Systolic (mm Hg) 125 07/13/2014 [facility] Respitory Rate 25 07/13/2014 [facility] Temperature Oral (F) 97.6 F 07/13/2014 [facility] Respitory Rate 21 07/13/2014 [facility] Systolic (mm Hg) 126 07/13/2014 [facility] Diastolic (mm Hg) 55 07/13/2014 [facility] Heart Rate 62 07/13/2014 [facility] Temperature Oral (F) 97.9 F 07/13/2014 [facility] Weight 120 07/13/2014 [facility] BMI Calculated 42.7 07/13/2014 [facility] Height 167.64 cm 07/13/2014 [facility] Temperature Oral (F) 98.0 F 12/09/2011 [facility] Systolic (mm Hg) 120 12/09/2011 [facility] Respitory Rate 20 12/09/2011 [facility] Heart Rate 61 12/09/2011 [facility] Diastolic (mm Hg) 54 12/09/2011 [facility] Heart Rate 60 12/09/2011 [facility] Respitory Rate 20 12/09/2011 [facility] Systolic (mm Hg) 116 12/09/2011 [facility] Diastolic (mm Hg) 56 12/09/2011 [facility] Temperature Oral (F) 98.1 F 12/09/2011 [facility] Temperature Oral (F) 98.1 F 12/09/2011 [facility] Heart Rate 60 12/09/2011 [facility] Respitory Rate 18 12/09/2011 [facility] Systolic (mm Hg) 125 12/09/2011 [facility] Diastolic (mm Hg) 59 12/09/2011 [facility] Weight 145.000 12/07/2011 [facility] Height 167.60 cm 12/07/2011 [facility] Weight 145.000 12/07/2011 [facility] Height 167.64 cm 12/07/2011 [facility] Weight 147.727 11/28/2011 [facility] Height 167.64 cm 11/28/2011 [facility] Encounters Location Location Details Encounter Type Encounter Number Reason For Visit Attending Provider ADM Date DC Date Status Source [facility] Inpatient [id number] GABO PAN 12/07/2011 12/09/2011 Active [facility] TH [id number] RT KNEE TKA SONIA VELASQUEZ 04/08/2012 Active [facility] [id number] Enzo Frenchthomas 07/13/2014 07/13/2014 [facility] Inpatient [id number] Enzo Frenchthomas 07/13/2014 07/16/2014 [facility] [place] [facility] [id number] Jimenez Bowman 07/29/2014 07/30/2014 [facility] [place] [facility] Office Visit [id number] Jimenez Bowman MD 07/30/2014 07/30/2014 [facility] Office Visit [id number] Jimenez Bowman MD 09/10/2014 09/10/2014 [facility] [place] [facility] [id number] Hardeep Mahoney 09/10/2014 [facility]11[facility] [id number] Jimenez Bowman 09/23/2014 09/25/2014 [facility] Office Visit [id number] Jimenez Bowman MD 10/08/2014 10/08/2014 [facility] Office Visit [id number] Jimenez Bowman MD 11/19/2014 11/19/2014 [facility] Procedures Procedure Code Date Perfomer Comments Source Knee replacement [id number] [facility] [place] Procedure on stomach<sup>1</sup> [id number] 1gastric sleeve [facility] Procedure on stomach<sup>1</sup> [id number] 1gastric sleeve [place] Knee replacement [id number] [facility] Procedure on stomach<sup>1</sup> [id number] 1gastric sleeve [facility] Rotator cuff repair [id number] [facility]
--- OUTSIDE RECORDS SUMMARY | 2018-07-10 06:30 | XMS REPORT | CCD ---
Author Author Auto Generated Organization [facility] [place] Address Unknown Phone Unavailable Care Team Providers Care Quirk Sander Name Role Phone Henrietta Abdul CP Allergies, Adverse Reactions, Alerts Substance Reaction Status NKDA Active Problem List Condition Effective Dates Status Chest pain Active
--- OUTSIDE RECORDS SUMMARY | 2018-07-10 06:31 | XMS REPORT | Summary of Care ---
Author Organization Unknown Address Unknown Phone Unavailable Encounter HQ Zarar_constantine(FIN) [id number] Date(s): 07/29/14 - 07/29/14 [facility] Outpatient Imaging [address] [address]- [phone] Discharge Disposition: Home Physician Attending: Jimenez Bowman MD Vital Signs No data available for this section Problem List Condition Effective Dates Status Health Status Informant Atrial Resolved fibrillation(Confirm ed) Chest Active pain(Confirmed) Hypertension(Confirm Resolved ed) Pain(Confirmed) Active Allergies, Adverse Reactions, Alerts Substance Reaction Severity Status NKDA Active Medications No data available for this section Results No data available for this section Immunizations Vaccine Date Refusal Reason diphtheria/pertussis, acel/tetanus adult 07/13/14 Procedures No data available for this section Social History Social History Type Response Smoking Status Never smoker; Exposure to Tobacco Smoke None; Cigarette Smoking Last 365 Days No; Reg Smoking Cessation Counseling Yes Assessment and Plan No data available for this section
--- OUTSIDE RECORDS SUMMARY | 2018-07-10 06:31 | XMS REPORT | Continuity of Care Document ---
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, 2014 Active Procedures Date Description Comments Jul 29, 2014 smoking status never smoker Jul 30, 2014 smoking status Never smoker Sep 10, 2014 smoking status Never smoker October 08, 2014 smoking status Never smoker Medications Medication Instructions Start Date Status AMIODARONE HCL 200 MG TABS one tab po qd Sep 10, 2014 Active Vital Signs Date Description Test Result Jul 30, 2014 weight E&M - 3141-9 WEIGHT 256.0 lb Jul 30, 2014 height E&M - 8302-2 HEIGHT 67 in Jul 30, 2014 temperature E&M TEMPERATURE 98.4 deg f Jul 30, 2014 pulse rate E&M - 8867-4 PULSE RATE 52 /min Jul 30, 2014 blood pressure, systolic - 8480-6 BP SYSTOLIC 130 mm Hg Jul 30, 2014 blood pressure, diastolic - 8462-4 BP DIASTOLIC 83 mm Hg Sep 10, 2014 weight E&M - 3141-9 WEIGHT 245.0 lb Sep 10, 2014 height E&M - 8302-2 HEIGHT 67 in Sep 10, 2014 temperature E&M TEMPERATURE 98.6 deg f Sep 10, 2014 pulse rate E&M - 8867-4 PULSE RATE 53 /min Sep 10, 2014 blood pressure, systolic - 8480-6 BP SYSTOLIC 128 mm Hg Sep 10, 2014 blood pressure, diastolic - 8462-4 BP DIASTOLIC 74 mm Hg October 08, 2014 weight E&M - 3141-9 WEIGHT 240.0 lb October 08, 2014 height E&M - 8302-2 HEIGHT 66 in October 08, 2014 temperature E&M TEMPERATURE 98.9 deg f October 08, 2014 pulse rate E&M - 8867-4 PULSE RATE 61 /min October 08, 2014 blood pressure, systolic - 8480-6 BP SYSTOLIC 118 mm Hg October 08, 2014 blood pressure, diastolic - 8462-4 BP DIASTOLIC 79 mm Hg
--- OUTSIDE RECORDS SUMMARY | 2018-07-10 06:31 | XMS REPORT | Summary of Care ---
Author Organization Unknown Address Unknown Phone Unavailable Encounter [facility](EUSEBIA) [id number] Date(s): 07/13/14 - 07/16/14 [facility] [address] [place] [address] Discharge Disposition: Home Physician Attending: Fady Lobo MD Physician Admitting: Jimenez Bowman MD Physician_Referring: Enzo Khan MD Reason for Visit SUBDURAL BLEED Vital Signs 1 2 3 Most recent to oldest [Reference Range]: 167 cm (07/13/14 4:15 PM) Height 98.2 DegF (07/16/14 7:36 AM) 98 DegF (07/16/14 4:00 AM) 99 DegF (07/16/14 12:30 AM) Temperature Oral [96.4-99.1 DegF] 106 mmHg (07/16/14 7:36 AM) 140 mmHg (07/16/14 6:03 AM) 97 mmHg (07/16/14 4:00 AM) Systolic Blood Pressure [90-140 mmHg] 52 mmHg *LOW* (07/16/14 7:36 AM) 68 mmHg (07/16/14 6:03 AM) 53 mmHg *LOW* (07/16/14 4:00 AM) Diastolic Blood Pressure [60-90 mmHg] 17 BRMIN (07/16/14 7:36 AM) 31 BRMIN *HI* (07/16/14 6:03 AM) 18 BRMIN (07/16/14 4:00 AM) Respiratory Rate [14-20 BRMIN] 61 bpm (07/16/14 9:37 AM) 56 bpm *LOW* (07/16/14 7:36 AM) 54 bpm *LOW* (07/16/14 4:00 AM) Peripheral Pulse Rate [60-100 bpm] 125.227 kg (07/14/14 9:56 AM) 120 kg (07/13/14 4:15 PM) Weight 43.03 m2 (07/13/14 4:15 PM) Body Mass Index Problem List Condition Effective Dates Status Health Status Informant Atrial Resolved fibrillation(Confirm ed) Chest Active pain(Confirmed) Hypertension(Confirm Resolved ed) Pain(Confirmed) Active Allergies, Adverse Reactions, Alerts Substance Reaction Severity Status NKDA Active Medications acetaminophen-hydrocodone 325 mg-10 mg oral tablet 1 tab, Route: PO, Drug Form: TAB, Dosing Weight 120, kg, Q4H, PRN Pain Score 4-6 , Start date: 07/13/14 13:11:00, Duration: 30 day, Stop date: 08/12/14 13:10:00 Notes: Do not exceed 4gm/day of acetaminophen. (Same as: [place] 325/10) Start Date: 07/13/14 Stop Date: 07/16/14 Status: Discontinued acetaminophen-hydrocodone 325 mg-5 mg oral tablet 1 tab, Route: PO, Drug Form: TAB, Dosing Weight 120, kg, Q4H, PRN Pain Score 1-3 , Start date: 07/13/14 13:11:00, Duration: 30 day, Stop date: 08/12/14 13:10:00 Notes: (Same as: [place] 325/5) Do not exceed 4gm/day of acetaminophen. Start Date: 07/13/14 Stop Date: 07/16/14 Status: Discontinued AMIODarone 200 mg, 1 tab, Route: PO, Drug form: TAB, Daily, Dosing Weight 120, kg, Start da te: 07/14/14 9:00:00, Stop date: 08/12/14 9:00:00 Notes: (Same as: Cordarone) Start Date: 07/14/14 Stop Date: 07/15/14 Status: Voided With Results AMIODarone 200 mg oral tablet 200 mg=1 tab, PO, Daily, 0 Refill(s) Start Date: 07/16/14 Status: Ordered Ancef 2 gm, Route: IVPB, ONCE, Dosing Weight 120, kg, Start date: 07/13/14 16:15:00, D uration: 1 doses or times, Stop date: 07/13/14 16:15:00 Start Date: 07/13/14 Stop Date: 07/13/14 Status: Deleted Ancef 2 gm, Route: IVPB, ONCE, Dosing Weight 120, kg, Start date: 07/13/14 16:12:00, D uration: 1 doses or times, Stop date: 07/13/14 16:12:00 Start Date: 07/13/14 Stop Date: 07/13/14 Status: Completed Ancef + Sodium Chloride 0.9% IV 100 mL 2 gm, Route: IVPB, Q8H, Dosing Weight 120, kg, Start date: 07/14/14 4:00:00, Dur ation: 1 day, Stop date: 07/14/14 20:00:00 Notes: (Same As: Ancef, Kefzol) Start Date: 07/14/14 Stop Date: 07/14/14 Status: Completed atenolol 25 mg, 1 tab, Route: PO, Drug form: TAB, Daily, Dosing Weight 120, kg, Start manjit e: 07/14/14 9:00:00, Duration: 30 day, Stop date: 08/12/14 9:00:00 Notes: (Same As:Tenormin) Start Date: 07/14/14 Stop Date: 07/16/14 Status: Discontinued Baciguent 500 units/g topical ointment 1 appl, TOP, Daily, # 30 gm, 0 Refill(s) Start Date: 07/16/14 Stop Date: 07/23/14 Status: Ordered bacitracin topical 1 appl, Route: TOP, TID, Drug form: OINT, Start date: 07/15/14 10:30:00, Duratio n: 30 day, Stop date: 08/14/14 9:00:00 Start Date: 07/15/14 Stop Date: 07/16/14 Status: Discontinued bacitracin-polymyxin B topical 1 appl, Route: TOP, QID, Drug form: OINT, PRN Dressing Change, Start date: 07/15 10:23:00, Duration: 30 day, Stop date: 08/14/14 10:22:00 Notes: (Same As: Polysporin) Start Date: 07/15/14 Stop Date: 07/16/14 Status: Discontinued bisacodyl 10 mg, 1 supp, Route: WV, Drug form: SUPP, Daily, Dosing Weight 120, kg, PRN Con stipation, Start date: 07/13/14 13:11:00, Duration: 30 day, Stop date: 08/12/14 13:10:00 Notes: (Same As: Dulcolax, Bisco-Lax) Start Date: 07/13/14 Stop Date: 07/16/14 Status: Discontinued calcium gluconate + Sodium Chloride 0.9% IV 100 mL 3,000 mg, 30 mL, Route: IV, ONCE, Start date: 07/14/14 3:06:00, Stop date: 07/14 3:06:00 Start Date: 07/14/14 Stop Date: 07/14/14 Status: Completed ceFAZolin 1 gm, Route: IV, Drug form: INJ, ONCE, Dosing Weight 120, kg, Priority: STAT, St art date: 07/13/14 21:33:00, Duration: 1 doses or times, Stop date: 07/13/14 21: 33:00 Start Date: 07/13/14 Stop Date: 07/13/14 Status: Completed ceFAZolin (SCIP) 2 gm, Route: IVPB, Drug form: INJ, Q8H, Dosing Weight 120, kg, Start date: 07/14 0:00:00, Duration: 24 hr, Stop date: 07/14/14 16:00:00 Start Date: 07/14/14 Stop Date: 07/13/14 Status: Deleted ceFAZolin (SCIP) + Sodium Chloride 0.9% IV 100 mL 2 gm, Route: IVPB, Q8H, Dosing Weight 120, kg, Start date: 07/13/14 22:00:00, Du ration: 24 hr, Stop date: 07/14/14 14:00:00 Notes: (Same As: Ancef, Kefzol) Start Date: 07/13/14 Stop Date: 07/13/14 Status: Discontinued Cordarone 200 mg, 1 tab, Route: PO, Drug form: TAB, Daily, Start date: 07/15/14 15:28:00, Duration: 30 day, Stop date: 08/14/14 9:00:00 Notes: (Same as: Cordarone) Start Date: 07/15/14 Stop Date: 07/16/14 Status: Discontinued Dextrose 50% Syringe 25 gm, 50 mL, Route: IVP, Drug Form: INJ, Dosing Weight 120, kg, PRN, PRN Abnorm al Lab Result, Start date: 07/13/14 13:11:00, Duration: 30 day, Stop date: 08/12 14:10:00 Start Date: 07/13/14 Stop Date: 07/16/14 Status: Discontinued Dextrose 50% Syringe 6.25 gm, 12.5 mL, Route: IVP, Drug Form: INJ, Dosing Weight 120, kg, PRN, PRN Ab normal Lab Result, Start date: 07/13/14 13:11:00, Duration: 30 day, Stop date: 0 08/12/14 14:10:00 Start Date: 07/13/14 Stop Date: 07/16/14 Status: Discontinued Dextrose 50% Syringe 12.5 gm, 25 mL, Route: IVP, Drug Form: INJ, Dosing Weight 120, kg, PRN, PRN Abno rmal Lab Result, Start date: 07/13/14 13:11:00, Duration: 30 day, Stop date: 04/18 14:10:00 Start Date: 07/13/14 Stop Date: 07/16/14 Status: Discontinued docusate 100 mg, 1 cap, Route: PO, Drug form: CAP, Q12H, Dosing Weight 120, kg, Start manjit e: 07/13/14 21:00:00, Duration: 30 day, Stop date: 08/12/14 9:00:00 Notes: (Same as: Colace) (Do Not Crush) Start Date: 07/13/14 Stop Date: 07/16/14 Status: Discontinued docusate sodium 100 mg oral capsule 100 mg=1 cap, PO, Q12H, as needed for constipation, # 30 cap, 0 Refill(s) Start Date: 07/16/14 Status: Ordered fentaNYL - one time ICU bolus dose 50 microgram, 1 mL, Route: IVP, Drug form: INJ, ONCE, Dosing Weight 125.227, kg, Start date: 07/14/14 14:12:00, Stop date: 07/14/14 14:12:00 Notes: (Same as: Sublimaze) Preservative free. Start Date: 07/14/14 Stop Date: 07/14/14 Status: Ordered flumazenil 0.2 mg, 2 mL, Route: IVP, Drug form: INJ, PRN, Dosing Weight 120, kg, PRN Benzod iazepine Reversal, Initial dose, Start date: 07/13/14 22:23:00, Duration: 30 day , Stop date: 08/12/14 23:22:00 Notes: (Same as: Romazicon) Start Date: 07/13/14 Stop Date: 07/14/14 Status: Discontinued flumazenil 0.2 mg, 2 mL, Route: IVP, Drug form: INJ, PRN, Dosing Weight 120, kg, PRN Benzod iazepine Reversal, Initial dose, Start date: 07/13/14 17:48:00, Duration: 30 day , Stop date: 08/12/14 18:47:00 Notes: (Same as: Romazicon) Start Date: 07/13/14 Stop Date: 07/13/14 Status: Discontinued hydrALAZINE 10 mg, 0.5 mL, Route: IVP, Drug form: INJ, Q20Min, Dosing Weight 120, kg, PRN El evated BP, Start date: 07/13/14 22:23:00, Duration: 2 doses or times, Stop date: Limited # of times Notes: (Same as: Apresoline)Push over 5 minutes Start Date: 07/13/14 Stop Date: 07/14/14 Status: Discontinued hydrALAZINE 10 mg, 0.5 mL, Route: IVP, Drug form: INJ, Q20Min, Dosing Weight 120, kg, PRN El evated BP, Start date: 07/13/14 17:48:00, Duration: 2 doses or times, Stop date: Limited # of times Notes: (Same as: Apresoline)Push over 5 minutes Start Date: 07/13/14 Stop Date: 07/13/14 Status: Discontinued hydromorphone 0.5 mg, 0.25 mL, Route: IVP, Drug form: INJ, Q5Min, Dosing Weight 120, kg, PRN P ain Score 7-10, Start date: 07/13/14 22:23:00, Duration: 4 doses or times, Stop date: Limited # of times Notes: Same as: Dilaudid Start Date: 07/13/14 Stop Date: 07/14/14 Status: Discontinued hydromorphone 0.5 mg, 0.25 mL, Route: IVP, Drug form: INJ, Q5Min, Dosing Weight 120, kg, PRN P ain Score 7-10, Start date: 07/13/14 17:48:00, Duration: 4 doses or times, Stop date: Limited # of times Notes: Same as: Dilaudid Start Date: 07/13/14 Stop Date: 07/13/14 Status: Discontinued insulin regular 100 units/mL human recombinant 3 unit, 0.03 mL, Route: SUB-Q, Drug form: SOLN, PRN, Dosing Weight 120, kg, PRN Abnormal Lab Result, Start date: 07/13/14 13:11:00, Duration: 30 day, Stop date: 08/12/14 14:10:00 Notes: (Same as: Humulin R) Roll in palms of hands gently; Do not shake vigorou sly. "single patient use only"(Restricted to patients requiring a dose > 60 units) Stable for 28 days at room temperatureExpires in days from _ Date Start Date: 07/13/14 Stop Date: 07/16/14 Status: Discontinued insulin regular 100 units/mL human recombinant 7 unit, 0.07 mL, Route: SUB-Q, Drug form: SOLN, PRN, Dosing Weight 120, kg, PRN Abnormal Lab Result, Start date: 07/13/14 13:11:00, Duration: 30 day, Stop date: 08/12/14 14:10:00 Notes: (Same as: Humulin R) Roll in palms of hands gently; Do not shake vigorou sly. "single patient use only"(Restricted to patients requiring a dose > 60 units) Stable for 28 days at room temperatureExpires in days from _ Date Start Date: 07/13/14 Stop Date: 07/16/14 Status: Discontinued insulin regular 100 units/mL human recombinant 5 unit, 0.05 mL, Route: SUB-Q, Drug form: SOLN, PRN, Dosing Weight 120, kg, PRN Abnormal Lab Result, Start date: 07/13/14 13:11:00, Duration: 30 day, Stop date: 08/12/14 14:10:00 Notes: (Same as: Humulin R) Roll in palms of hands gently; Do not shake vigorou sly. "single patient use only"(Restricted to patients requiring a dose > 60 units) Stable for 28 days at room temperatureExpires in days from _ Date Start Date: 07/13/14 Stop Date: 07/16/14 Status: Discontinued K-Dur 20 40 mEq, 2 tab, Route: PO, Drug form: ERTAB, ONCE, Start date: 07/15/14 4:45:00, Stop date: 07/15/14 4:45:00 Notes: (Same as: K-Dur 20)"Do Not Crush" With food and full glass of water Start Date: 07/15/14 Stop Date: 07/15/14 Status: Completed labetalol 10 mg, 2 mL, Route: IVP, Drug form: INJ, Q5Min, Dosing Weight 120, kg, PRN [place] chuckie BP, Start date: 07/13/14 22:23:00, Duration: 5 doses or times, Stop date: Li mited # of times Start Date: 07/13/14 Stop Date: 07/14/14 Status: Discontinued labetalol 10 mg, 2 mL, Route: IVP, Drug form: INJ, Q5Min, Dosing Weight 120, kg, PRN [place] chuckie BP, Start date: 07/13/14 17:48:00, Duration: 5 doses or times, Stop date: Li mited # of times Start Date: 07/13/14 Stop Date: 07/13/14 Status: Discontinued levETIRAcetam 500 mg, 1 tab, Route: PO, Drug form: TAB, Q12H, Dosing Weight 120, kg, Start manjit e: 07/13/14 21:00:00, Duration: 30 day, Stop date: 08/12/14 9:00:00 Notes: (Same as:Khushbu) Start Date: 07/13/14 Stop Date: 07/16/14 Status: Discontinued levETIRAcetam + Sodium Chloride 0.9% IV 100 mL 1,000 mg, Route: IVPB, ONCE, Dosing Weight 120, kg, Start date: 07/13/14 13:11:0 0, Stop date: 07/13/14 13:11:00 Notes: Same as Keppra Mix with 100ml NS, LR, or D5W Start Date: 07/13/14 Stop Date: 07/13/14 Status: Completed levETIRAcetam 500 mg oral tablet 500 mg=1 tab, PO, Q12H, # 14 tab, 0 Refill(s) Start Date: 07/16/14 Stop Date: 07/23/14 Status: Ordered naloxone 0.04 mg, 0.1 mL, Route: IVP, Drug form: INJ, Q2MIN, Dosing Weight 120, kg, PRN N arcotic Reversal, Start date: 07/13/14 22:23:00, Duration: 8 doses or times, Sto p date: Limited # of times Notes: Same as Narcan Start Date: 07/13/14 Stop Date: 07/14/14 Status: Discontinued naloxone 0.04 mg, 0.1 mL, Route: IVP, Drug form: INJ, Q2MIN, Dosing Weight 120, kg, PRN N arcotic Reversal, Start date: 07/13/14 17:48:00, Duration: 8 doses or times, Sto p date: Limited # of times Notes: Same as Narcan Start Date: 07/13/14 Stop Date: 07/13/14 Status: Discontinued ondansetron 4 mg, 2 mL, Route: IVP, Drug form: INJ, ONCE, Dosing Weight 120, kg, PRN Nausea & Vomiting, Start date: 07/13/14 22:23:00 Notes: (Same as: Zofran) Start Date: 07/13/14 Stop Date: 07/13/14 Status: Completed Pepcid 20 mg, 1 tab, Route: PO, Drug form: TAB, Daily, Start date: 07/15/14 9:00:00, Du ration: 30 day, Stop date: 08/13/14 9:00:00 Notes: (Same as: Pepcid) Start Date: 07/15/14 Stop Date: 07/16/14 Status: Discontinued potassium chloride 20 mEq, 100 mL, Route: IVPB, Drug form: INJ, Q2H, Start date: 07/14/14 4:00:00, Duration: 2 doses or times, Stop date: 07/14/14 6:00:00 Notes: (Same as: KCL) Infuse no faster than 10 mEq/hr if given peripherally. Start Date: 07/14/14 Stop Date: 07/14/14 Status: Completed promethazine 6.25 mg, 0.25 mL, Route: IVPB, Drug form: INJ, ONCE, Dosing Weight 120, kg, PRN Nausea & Vomiting, Start date: 07/13/14 17:48:00 Notes: Do not give IV push. (Same as: Phenergan) Start Date: 07/13/14 Stop Date: 07/13/14 Status: Discontinued ranitidine 150 mg oral capsule 150 mg, 1 cap, Route: PO, Drug form: CAP, Daily, Dosing Weight 120, kg, Start da te: 07/14/14 9:00:00, Duration: 30 day, Stop date: 08/12/14 9:00:00 Start Date: 07/14/14 Stop Date: 07/14/14 Status: Discontinued Saline Flush 0.9% 10 ml, Route: IVP, Drug Form: INJ, Dosing Weight 120, kg, Q12H, Start date: 02/16 21:00:00, Duration: 30 day, Stop date: 08/12/14 9:00:00 Notes: (Same as: BD Posiflush) Start Date: 07/13/14 Stop Date: 07/16/14 Status: Discontinued Saline Flush 0.9% 10 ml, Route: IVP, Drug Form: INJ, Dosing Weight 120, kg, PRN, PRN Line Flush, S tart date: 07/13/14 13:11:00, Duration: 30 day, Stop date: 08/12/14 14:10:00 Notes: (Same as: BD Posiflush) Start Date: 07/13/14 Stop Date: 07/16/14 Status: Discontinued senna 8.6 mg, 1 tab, Route: PO, Drug Form: TAB, Dosing Weight 120, kg, Q12H, Start manjit e: 07/13/14 21:00:00, Duration: 30 day, Stop date: 08/12/14 9:00:00 Notes: (Same as: Senokot) Start Date: 07/13/14 Stop Date: 07/16/14 Status: Discontinued senna 8.6 mg oral tablet 8.6 mg=1 tab, PO, Q12H, as needed for constipation, # 36 tab, 0 Refill(s) Start Date: 07/16/14 Status: Ordered Sodium Chloride 0.9% IV 1,000 mL 1,000 mL, Rate: 100 ml/hr, Infuse over: 10 hr, Route: IV, Dosing Weight 120 kg, Total Volume: 1,000, Start date: 07/13/14 13:11:00, Stop date: 08/12/14 13:10:00 Start Date: 07/13/14 Stop Date: 07/14/14 Status: Discontinued Tylenol with Codeine #3 oral tablet 1 tab, PO, Q4H, for pain, # 50 tab, 0 Refill(s) Start Date: 07/16/14 Status: Ordered Results BLOOD BANK RESULTS 1 2 3 Most recent to oldest [Reference Range]: AB POS *Unknown* (07/13/14 1:30 PM) ABO/Rh Negative (07/13/14 1:30 PM) Antibody Scrn Product available (07/13/14 7:15 PM) Product available (07/13/14 1:03 PM) Product available (07/13/14 12:57 PM) Platelet product ELECTROLYTES 1 2 3 Most recent to oldest [Reference Range]: 144 mEq/L (07/15/14 12:38 AM) 145 mEq/L (07/13/14 11:08 PM) 145 mEq/L (07/13/14 6:50 PM) Sodium Lvl [135-145 mEq/L] 3.9 mEq/L (07/15/14 12:38 AM) 3.5 mEq/L (07/13/14 11:08 PM) 3.7 mEq/L (07/13/14 6:50 PM) Potassium Lvl [3.5-5.1 mEq/L] 110 mEq/L *HI* (07/15/14 12:38 AM) 113 mEq/L *HI* (07/13/14 11:08 PM) 113 mEq/L *HI* (07/13/14 6:50 PM) Chloride Lvl [95-109 mEq/L] 27 mEq/L (07/15/14 12:38 AM) 25 mEq/L (07/13/14 11:08 PM) 25 mEq/L (07/13/14 6:50 PM) CO2 [24-32 mEq/L] 10.9 mEq/L (07/15/14 12:38 AM) 10.5 mEq/L (07/13/14 11:08 PM) 10.7 mEq/L (07/13/14 6:50 PM) AGAP [10.0-20.0 mEq/L] CHEM PANEL 1 2 3 Most recent to oldest [Reference Range]: 1.0 mg/dL (07/15/14 12:38 AM) 1.1 mg/dL (07/13/14 11:08 PM) 0.8 mg/dL (07/13/14 6:50 PM) Creatinine Lvl [0.5-1.4 mg/dL] 84 mL/min/1.73m2 1 *NA* (07/15/14 12:38 AM) 75 mL/min/1.73m2 2 *NA* (07/13/14 11:08 PM) 100 mL/min/1.73m2 3 *NA* (07/13/14 6:50 PM) eGFR 16 mg/dL (07/15/14 12:38 AM) 15 mg/dL (07/13/14 11:08 PM) 15 mg/dL (07/13/14 6:50 PM) BUN [7-22 mg/dL] 14 (07/13/14 11:08 PM) B/C Ratio [6-25] 106 mg/dL 4 *HI* (07/15/14 12:38 AM) 172 mg/dL 5 *HI* (07/13/14 11:08 PM) 165 mg/dL 6 *HI* (07/13/14 6:50 PM) Glucose Lvl [70-99 mg/dL] 6.2 g/dL *LOW* (07/13/14 11:08 PM) Total Protein [6.4-8.4 g/dL] 3.4 g/dL *LOW* (07/13/14 11:08 PM) Albumin Lvl [3.5-5.0 g/dL] 2.8 g/dL (07/13/14 11:08 PM) Globulin [2.0-4.0 g/dL] 1.2 (07/13/14 11:08 PM) A/G Ratio [0.7-1.6] 8.6 mg/dL (07/15/14 12:38 AM) 7.6 mg/dL *LOW* (07/13/14 11:08 PM) 7.9 mg/dL *LOW* (07/13/14 6:50 PM) Calcium Lvl [8.5-10.5 mg/dL] 3.1 mg/dL (07/15/14 12:38 AM) 2.9 mg/dL (07/13/14 1:30 PM) Phosphorus [2.5-4.5 mg/dL] 2.0 mg/dL (07/15/14 12:38 AM) 1.9 mg/dL (07/13/14 1:30 PM) Magnesium Lvl [1.8-2.4 mg/dL] 17 unit/L (07/13/14 11:08 PM) ALT [0-65 unit/L] 12 unit/L (07/13/14 11:08 PM) AST [0-37 unit/L] 50 unit/L (07/13/14 11:08 PM) Alk Phos [39-136 unit/L] 0.8 mg/dL (07/13/14 11:08 PM) Bili Total [0.2-1.3 mg/dL] 1Result Comment: The eGFR is calculated using [...] be mul tiplied by the estimated BMI. 2Result Comment: The eGFR is calculated using [...] be mul tiplied by the estimated BMI. 3Result Comment: The eGFR is calculated using [...] be mul tiplied by the estimated BMI. 4Interpretive Data: Adult reference range values reflect the clinical guidelines of the [place] [employer]. 5Interpretive Data: Adult reference range values reflect the clinical guidelines of the [place] [employer]. 6Interpretive Data: Adult reference range values reflect the clinical guidelines of the [place] [employer]. PARATHYROID PROFILE 1 2 3 Most recent to oldest [Reference Range]: 1.14 mMol/L (07/15/14 12:38 AM) 0.96 mMol/L *LOW* (07/13/14 11:08 PM) 1.07 mMol/L (07/13/14 1:30 PM) Ca Ion WB [1.05-1.25 mMol/L] 1.16 mMol/L (07/15/14 12:38 AM) 0.95 mMol/L *LOW* (07/13/14 11:08 PM) 1.05 mMol/L (07/13/14 1:30 PM) Ca Norm WB [1.05-1.25 mMol/L] HEMATOLOGY 1 2 3 Most recent to oldest [Reference Range]: 11.8 K/CMM *HI* (07/15/14 12:38 AM) 9.4 K/CMM (07/13/14 11:08 PM) 10.3 K/CMM (07/13/14 6:50 PM) WBC [3.7-10.4 K/CMM] 2.78 M/CMM *LOW* (07/15/14 12:38 AM) 3.15 M/CMM *LOW* (07/13/14 11:08 PM) 3.74 M/CMM *LOW* (07/13/14 6:50 PM) RBC [4.70-6.10 M/CMM] 8.8 g/dL *LOW* (07/16/14 9:23 AM) 8.4 g/dL *LOW* (07/15/14 12:38 AM) 9.7 g/dL *LOW* (07/13/14 11:08 PM) Hgb [14.0-18.0 g/dL] 26.3 % *LOW* (07/16/14 9:23 AM) 25.2 % *LOW* (07/15/14 12:38 AM) 28.3 % *LOW* (07/13/14 11:08 PM) Hct [42.0-54.0 %] 90.6 fL (07/15/14 12:38 AM) 89.7 fL (07/13/14 11:08 PM) 89.7 fL (07/13/14 6:50 PM) MCV [80.0-94.0 fL] 30.1 pg (07/15/14 12:38 AM) 30.7 pg (07/13/14 11:08 PM) 30.4 pg (07/13/14 6:50 PM) MCH [27.0-31.0 pg] 33.2 g/dL (07/15/14 12:38 AM) 34.3 g/dL (07/13/14 11:08 PM) 33.9 g/dL (07/13/14 6:50 PM) MCHC [32.0-36.0 g/dL] 14.2 % (07/15/14 12:38 AM) 13.8 % (07/13/14 11:08 PM) 14.1 % (07/13/14 6:50 PM) RDW [11.5-14.5 %] 215 K/CMM (07/15/14 12:38 AM) 229 K/CMM (07/13/14 11:08 PM) 207 K/CMM (07/13/14 6:50 PM) Platelet [133-450 K/CMM] 10.2 fL (07/15/14 12:38 AM) 10.0 fL (07/13/14 11:08 PM) 11.1 fL *HI* (07/13/14 6:50 PM) MPV [7.4-10.4 fL] 71.2 % (07/15/14 12:38 AM) 91.1 % *HI* (07/13/14 11:08 PM) 93.4 % *HI* (07/13/14 6:50 PM) Segs [45.0-75.0 %] 15.7 % *LOW* (07/15/14 12:38 AM) 5.1 % *LOW* (07/13/14 11:08 PM) 3.7 % *LOW* (07/13/14 6:50 PM) Lymphocytes [20.0-40.0 %] 12.3 % *HI* (07/15/14 12:38 AM) 3.7 % (07/13/14 11:08 PM) 2.8 % (07/13/14 6:50 PM) Monocytes [2.0-12.0 %] 0.4 % (07/15/14 12:38 AM) 0.1 % (07/13/14 11:08 PM) 0.1 % (07/13/14 5:40 PM) Eosinophils [0.0-4.0 %] 0.4 % (07/15/14 12:38 AM) 0.1 % (07/13/14 6:50 PM) 0.1 % (07/13/14 5:40 PM) Basophils [0.0-1.0 %] 8.4 K/CMM *HI* (07/15/14 12:38 AM) 8.6 K/CMM *HI* (07/13/14 11:08 PM) 9.7 K/CMM *HI* (07/13/14 6:50 PM) Segs-Bands # [1.5-8.1 K/CMM] 1.9 K/CMM (07/15/14 12:38 AM) 0.5 K/CMM *LOW* (07/13/14 11:08 PM) 0.4 K/CMM *LOW* (07/13/14 6:50 PM) Lymphocytes # [1.0-5.5 K/CMM] 1.5 K/CMM *HI* (07/15/14 12:38 AM) 0.3 K/CMM (07/13/14 11:08 PM) 0.3 K/CMM (07/13/14 6:50 PM) Monocytes # [0.0-0.8 K/CMM] 15.0 seconds *HI* (07/15/14 12:38 AM) 14.8 seconds *HI* (07/13/14 11:08 PM) 14.2 seconds (07/13/14 6:50 PM) PT [12.0-14.7 seconds] 1.17 7 (07/15/14 12:38 AM) 1.15 8 (07/13/14 11:08 PM) 1.09 9 (07/13/14 6:50 PM) INR [0.85-1.17] 26.4 seconds 10 (07/15/14 12:38 AM) 24.7 seconds 11 (07/13/14 11:08 PM) 23.8 seconds 12 (07/13/14 6:50 PM) PTT [22.9-35.8 seconds] 3.9 minutes *LOW* (07/13/14 11:08 PM) 4.0 minutes *LOW* (07/13/14 6:50 PM) 3.9 minutes *LOW* (07/13/14 5:40 PM) R-time [5.0-10.0 minutes] 1.2 minutes (07/13/14 11:08 PM) 1.0 minutes (07/13/14 6:50 PM) 0.9 minutes *LOW* (07/13/14 5:40 PM) K-time [1.0-3.0 minutes] 74.1 degrees *HI* (07/13/14 11:08 PM) 74.0 degrees *HI* (07/13/14 6:50 PM) 77.1 degrees *HI* (07/13/14 5:40 PM) Angle [53.0-72.0 degrees] 72.0 mm *HI* (07/13/14 11:08 PM) 73.8 mm *HI* (07/13/14 6:50 PM) 72.4 mm *HI* (07/13/14 5:40 PM) Max Amp [50.0-70.0 mm] 12.8 K d/sc *HI* (07/13/14 11:08 PM) 14.1 K d/sc *HI* (07/13/14 6:50 PM) 13.1 K d/sc *HI* (07/13/14 5:40 PM) G-value [4.5-11.0 K d/sc] 0.0 % (07/13/14 11:08 PM) 0.0 % (07/13/14 6:50 PM) 0.0 % (07/13/14 5:40 PM) Ly30 [0.0-7.5 %] 3.6 *HI* (07/13/14 11:08 PM) 3.9 *HI* (07/13/14 6:50 PM) 4.0 *HI* (07/13/14 5:40 PM) Coag Index [-3.0-3.0] Thrombelastograph results show shortened value of R and increased values of both Angle Alpha and MA. These findings are suggestive of platelet and enzymatic hypercoagulation which may be seen in early phase of DIC. Monitor for DIC with DIC panel may be indicated. CPT:27339 *NA* (07/13/14 11:08 PM) Thrombelastograph results show shortened value of R and increased values of both Angle Alpha and MA. These findings are suggestive of platelet and enzymatic hypercoagulation which may be seen in early phase of DIC. Monitor for DIC with DIC panel may be indicated. CPT:82343 *NA* (07/13/14 6:50 PM) Thrombelastograph results show shortened value of R and increased values of both Angle Alpha and MA. These findings are suggestive of platelet and enzymatic hypercoagulation which may be seen in early phase of DIC. Monitor for DIC with DIC panel may be indicated. CPT:52763 *NA* (07/13/14 5:40 PM) TEG Interp See Note 13 (07/13/14 11:08 PM) See Note 14 (07/13/14 6:50 PM) See Note 15 (07/13/14 5:40 PM) TEG Data 7Interpretive Data: RECOMMENDED RANGES FOR PROTIME INR: 2.0-3.0 for most medical and surgical thromboembolic states. 2.5-3.5 for artificial heart valves and recurrent embolism. INR SHOULD BE USED ONLY FOR PATIENTS ON STABLE ANTICOAGULANT THERAPY. 8Interpretive Data: RECOMMENDED RANGES FOR PROTIME INR: 2.0-3.0 for most medical and surgical thromboembolic states. 2.5-3.5 for artificial heart valves and recurrent embolism. INR SHOULD BE USED ONLY FOR PATIENTS ON STABLE ANTICOAGULANT THERAPY. 9Interpretive Data: RECOMMENDED RANGES FOR PROTIME INR: 2.0-3.0 for most medical and surgical thromboembolic states. 2.5-3.5 for artificial heart valves and recurrent embolism. INR SHOULD BE USED ONLY FOR PATIENTS ON STABLE ANTICOAGULANT THERAPY. 10Interpretive Data: Heparin Therapeutic Range: 57 - 92 Seconds 11Interpretive Data: Heparin Therapeutic Range: 57 - 92 Seconds 12Interpretive Data: Heparin Therapeutic Range: 57 - 92 Seconds 13Interpretive Data: Normal ranges are for citrated whole blood with kaolin activator. R TIME: Reflects the degree of anti-coagulation due to LMWH, unfractionated hep jasper, and coumadin as well as non-specific factor [...] mostly used to monitor significant coagulopathy in t rauma patients or surgical patients. It assesses gloabal (primary and secondary ) hemostasis using whole blood and therefore, not expected to correlate well wit h conventional coagulation tests. TEG results need to be correlated with clinic al evaluation for patient management. 14Interpretive Data: Normal ranges are for citrated whole blood with kaolin activator. R TIME: Reflects the degree of anti-coagulation due to LMWH, unfractionated hep jasper, and coumadin as well as non-specific factor [...] mostly used to monitor significant coagulopathy in t rauma patients or surgical patients. It assesses gloabal (primary and secondary ) hemostasis using whole blood and therefore, not expected to correlate well wit h conventional coagulation tests. TEG results need to be correlated with clinic al evaluation for patient management. 15Interpretive Data: Normal ranges are for citrated whole blood with kaolin activator. R TIME: Reflects the degree of anti-coagulation due to LMWH, unfractionated hep jasper, and coumadin as well as non-specific factor [...] mostly used to monitor significant coagulopathy in t rauma patients or surgical patients. It assesses gloabal (primary and secondary ) hemostasis using whole blood and therefore, not expected to correlate well wit h conventional coagulation tests. TEG results need to be correlated with clinic al evaluation for patient management. BACTERIAL - SEROLOGY 1 2 3 Most recent to oldest [Reference Range]: Negative 16 (07/13/14 6:50 PM) MRSA by PCR 16Interpretive Data: Interpretive Data: The [facility] LightCycler [...] reaction (PCR) assay detects a proprietary sequence indicat scott of the integration of the SCCmec cassette into the Staphylococcus aureus chr omosome, indicating the presence of MRSA DNA. The assay utilizes FDA cleared IV D reagents. Performance characteristics have been verified by the Molecular Di[facility] nostic Laboratory within the [facility]. The Molecular Diagnostic L aboratory is authorized under the Clinical Laboratory Improvement Amendment of 1 988 (CLIA-88) to perform high complexity testing. Medications Administered During Your Visit No data available for this section Immunizations Vaccine Date Refusal Reason diphtheria/pertussis, acel/tetanus adult 07/13/14 Procedures Procedure Type Body Site Date of Procedure Related Diagnosis Knee replacement Social History Social History Type Response Smoking Status Never smoker, Exposure to Tobacco Smoke None, Cigarette Smoking Last 365 Days No, Reg Smoking Cessation Counseling Yes
--- OUTSIDE RECORDS SUMMARY | 2018-07-10 06:31 | XMS REPORT | Continuity of Care Document ---
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
--- OUTSIDE RECORDS SUMMARY | 2018-07-10 06:31 | XMS REPORT | Continuity of Care Document ---
Author Author MNA Organization MNA Address Unknown Phone Unavailable Care Team Providers Care Knitted Garment Finisher Name Role Phone MD Colby, Jimenez KUO Unavailable Insurance Providers Payer name Policy type / Coverage type Policy ID Covered democrat ID Policy [place] Encounters Encounter Performer Location Date Office Visit Jimenez Bowman MD [facility] [place] [facility] [place] Problems Problem Effective Dates Problem Status [...] - 8462-4 BP DIASTOLIC 79 mm Hg Nov 19, 2014 weight E&M - 3141-9 WEIGHT 252 lb Nov 19, 2014 height E&M - 8302-2 HEIGHT 66 in Nov 19, 2014 temperature E&M TEMPERATURE 97.7 deg f Nov 19, 2014 pulse rate E&M - 8867-4 PULSE RATE 65 /min Nov 19, 2014 blood pressure, systolic - 8480-6 BP SYSTOLIC 130 mm Hg Nov 19, 2014 blood pressure, diastolic - 8462-4 BP DIASTOLIC 87 mm Hg
--- OUTSIDE RECORDS SUMMARY | 2018-07-10 06:31 | XMS REPORT | Summary of Care ---
Author Organization Unknown Address Unknown Phone Unavailable Encounter HQ Zarar_constantine(FIN) [id number] Date(s): 09/10/14 - 09/10/14 [facility] Outpatient Imaging [address] [phone] Discharge Disposition: Home Physician Attending: Jimenez Bowman MD Physician_Referring: Hardeep Mahoney MD Vital Signs No data available for [...] Reason diphtheria/pertussis, acel/tetanus adult 07/13/14 Procedures Procedure Date Related Diagnosis Body Site Knee replacement Procedure on stomach1 1gastric sleeve Social History Social History Type Response Smoking Status Never smoker; Exposure to Tobacco Smoke None; Cigarette Smoking Last 365 Days No; Reg Smoking Cessation Counseling Yes Assessment and Plan No data available for this section
--- OUTSIDE RECORDS SUMMARY | 2018-07-10 06:31 | XMS REPORT | Summary of Care ---
Author Organization Unknown Address Unknown Phone Unavailable Encounter HQ Austyn(EUSEBIA) [id number] Date(s): 09/23/14 - 09/25/14 [facility] [place] [address] [facility] provided by [facility] [place] [address]- Final: Discharge Disposition: Home Physician Attending: Jimenez Bowman MD Physician Admitting: Jimenez Bowman MD Physician_Referring: Jimenez Bowman MD Vital Signs 1 2 3 Most recent to oldest [Reference Range]: 259.08 cm (09/23/14 1:32 PM) 167.64 cm (09/23/14 1:31 PM) 167.64 cm (09/22/14 12:27 PM) Height 96.6 DegF (09/25/14 8:00 AM) 97.0 DegF (09/25/14 6:00 AM) 97.5 DegF (09/24/14 11:50 PM) Temperature Oral [96.4-99.1 DegF] 106/67 mmHg (09/25/14 6:25 AM) 104/54 mmHg (09/25/14 5:48 AM) 110/57 mmHg (09/25/14 4:00 AM) Blood Pressure [90-140/60-90 mmHg] 18 BRMIN (09/24/14 4:00 PM) 16 BRMIN (09/24/14 11:00 AM) 18 BRMIN (09/24/14 7:00 AM) Respiratory Rate [14-20 BRMIN] 109.091 kg (09/23/14 1:32 PM) 109.091 kg (09/23/14 1:31 PM) 109.091 kg (09/22/14 12:27 PM) Weight 16.25 m2 (09/23/14 1:32 PM) 38.82 m2 (09/23/14 1:31 PM) 38.82 m2 (09/22/14 12:27 PM) Body Mass Index Problem List Condition Effective Dates Status Health Status Informant Atrial Resolved fibrillation(Confirm ed) Chest Active pain(Confirmed) Hypertension(Confirm Resolved ed) Pain(Confirmed) Active SDH - Subdural Active hematoma(Confirmed) Sleep Active apnea(Confirmed) Allergies, Adverse Reactions, Alerts Substance Reaction Severity Status NKDA Active Medications acetaminophen 650 mg, 2 tab, Route: PO, Drug form: TAB, Q4H, Dosing Weight 109.091, kg, PRN Pa in 1-3/Temp > 99.5 F, Start date: 09/23/14 10:46:00, Duration: 30 day, Stop date: 10/23/14 10:45:00 Notes: Do not exceed 4 gm/day. (Same as: Tylenol) Start Date: 09/23/14 Stop Date: 09/25/14 Status: Discontinued acetaminophen-hydrocodone 325 mg-10 mg oral tablet 1 tab, Route: PO, Drug Form: TAB, Dosing Weight 109.091, kg, Q4H, PRN Pain Score 4-6, Start date: 09/23/14 10:46:00, Duration: 30 day, Stop date: 10/23/14 10:45 :00 Notes: Do not exceed 4gm/day of acetaminophen. (Same as: [place] 325/10) Start Date: 09/23/14 Stop Date: 09/25/14 Status: Discontinued acetaminophen-hydrocodone 325 mg-10 mg oral tablet 2 tab, Route: PO, Drug Form: TAB, Dosing Weight 109.091, kg, Q4H, PRN Pain Score 7-10, Start date: 09/23/14 10:46:00, Duration: 30 day, Stop date: 10/23/14 10:4 5:00 Notes: Do not exceed 4gm/day of acetaminophen. (Same as: [place] 325/10) Start Date: 09/23/14 Stop Date: 09/25/14 Status: Discontinued acetaminophen-hydrocodone 325 mg-5 mg oral tablet 1 tab, Route: PO, Drug Form: TAB, Dosing Weight 109.091, kg, Q4H, PRN Pain Score 1-3, Start date: 09/23/14 10:46:00, Duration: 30 day, Stop date: 10/23/14 10:45 :00 Notes: (Same as: [place] 325/5) Do not exceed 4gm/day of acetaminophen. Start Date: 09/23/14 Stop Date: 09/25/14 Status: Discontinued AMIODarone 200 mg, 1 tab, Route: PO, Drug form: TAB, Daily, Dosing Weight 109.091, kg, Star t date: 09/24/14 9:00:00, Duration: 30 day, Stop date: 10/23/14 9:00:00 Notes: (Same as: Cordarone) Start Date: 09/24/14 Stop Date: 09/25/14 Status: Discontinued aspirin 325 mg, Daily, 0 Refill(s) Start Date: 09/22/14 Stop Date: 09/25/14 Status: Discontinued atenolol 25 mg, 1 tab, Route: PO, Drug form: TAB, Daily, Dosing Weight 109.091, kg, Start date: 09/24/14 9:00:00, Duration: 30 day, Stop date: 10/23/14 9:00:00 Notes: (Same As:Tenormin) Start Date: 09/24/14 Stop Date: 09/25/14 Status: Discontinued bacitracin topical 500 units/g ointment 1 appl, Route: TOP, Daily, Drug form: OINT, Start date: 09/25/14 9:00:00, Durati on: 30 day, Stop date: 10/24/14 9:00:00 Start Date: 09/25/14 Stop Date: 09/25/14 Status: Discontinued bisacodyl 10 mg, 1 supp, Route: ND, Drug form: SUPP, Daily, Dosing Weight 109.091, kg, PRN Constipation, Start date: 09/23/14 10:46:00, Duration: 30 day, Stop date: 10/23 10:45:00 Notes: (Same As: Dulcolax, Bisco-Lax) Start Date: 09/23/14 Stop Date: 09/25/14 Status: Discontinued calcium (as carbonate)-vitamin D 600 mg-800 intl units oral tablet 1 tab, PO, BID, 0 Refill(s) Start Date: 09/22/14 Status: Ordered Calcium 500+D 1 tab, Route: PO, Drug Form: TAB, Dosing Weight 109.091, kg, BID, Start date: 17:00:00, Duration: 30 day, Stop date: 10/23/14 9:00:00 Notes: (calcium carbonate-vit D 500mg-400unit TAB) Same as: Oyster-D, OsCal-D Start Date: 09/23/14 Stop Date: 09/25/14 Status: Discontinued ceFAZolin 2 gm, 50 mL, Route: IVPB, Drug form: INJ, PRE OP, Start date: 09/23/14 5:00:00, Duration: 1 day, Stop date: 09/24/14 4:59:00 Start Date: 09/23/14 Stop Date: 09/23/14 Status: Completed ceFAZolin (SCIP) + Sodium Chloride 0.9% IV 100 mL 2 gm, Route: IVPB, Drug form: PDR/INJ, Q8H, Dosing Weight 109.091, kg, Start manjit e: 09/23/14 16:00:00, Duration: 1 day, Stop date: 09/24/14 8:00:00 Notes: (Same As: Aniya Heredia) MEDICATION WASTE Product Size: 1000 mgP roduct Wasted: ___ mg Start Date: 09/23/14 Stop Date: 09/24/14 Status: Completed Centrum Men's 1 tab, PO, Daily, 0 Refill(s) Start Date: 09/22/14 Status: Ordered docusate 100 mg, 1 cap, Route: PO, Drug form: CAP, Q12H, Dosing Weight 109.091, kg, Start date: 09/23/14 21:00:00, Duration: 30 day, Stop date: 10/23/14 9:00:00 Notes: (Same as: Colace) (Do Not Crush) Start Date: 09/23/14 Stop Date: 09/25/14 Status: Discontinued docusate sodium 100 mg oral capsule 100 mg=1 cap, PO, Q12H, # 50 cap, 0 Refill(s) Start Date: 09/25/14 Status: Ordered flumazenil 0.2 mg, Route: IVP, PRN, Dosing Weight 109.091, kg, PRN Benzodiazepine Reversal, Initial dose, Start date: 09/23/14 11:12:00, Duration: 30 day, Stop date: 10/23 11:11:00 Start Date: 09/23/14 Stop Date: 09/23/14 Status: Discontinued Glucosamine & Chondroitin with MSM oral tablet 1 tab, PO, BID, 0 Refill(s) Start Date: 09/22/14 Status: Ordered heparin 5000 units/mL injectable solution 5,000 unit, 1 mL, Route: SUB-Q, Drug form: INJ, Q8H, Dosing Weight 109.091, kg, Start date: 09/24/14 16:00:00, Duration: 30 day, Stop date: 10/24/14 8:00:00 Notes: porcine heparin Start Date: 09/24/14 Stop Date: 09/25/14 Status: Discontinued hydromorphone 0.5 mg, Route: IVP, Q5Min, Dosing Weight 109.091, kg, PRN Pain Score 7-10, Start date: 09/23/14 11:12:00, Duration: 4 doses or times, Stop date: Limited # of ti mes Start Date: 09/23/14 Stop Date: 09/23/14 Status: Discontinued Lactated Ringers IV 1000 mL 1,000 mL, Rate: 40 ml/hr, Infuse over: 25 hr, Route: IV, Dosing Weight 109.091 k g, Total Volume: 1,000, Start date: 09/23/14 6:41:00, Duration: 30 day, Stop manjit e: 10/23/14 6:40:00 Start Date: 09/23/14 Stop Date: 09/23/14 Status: Deleted levETIRAcetam 1,000 mg, 2 tab, Route: PO, Drug form: TAB, Q12H, Dosing Weight 109.091, kg, Sta rt date: 09/23/14 21:00:00, Duration: 30 day, Stop date: 10/23/14 9:00:00 Notes: (Same as:Khushbu) Start Date: 09/23/14 Stop Date: 09/25/14 Status: Discontinued levETIRAcetam 1000 mg oral tablet 1,000 mg=1 tab, PO, Q12H, # 28 tab, 0 Refill(s) Start Date: 09/25/14 Stop Date: 10/09/14 Status: Ordered metoclopramide 10 mg, 2 mL, Route: IVP, Drug form: INJ, Q6H, Dosing Weight 109.091, kg, Start d ate: 09/23/14 12:00:00, Duration: 48 hr, Stop date: 09/25/14 6:00:00 Notes: (Same as: Reglan) Start Date: 09/23/14 Stop Date: 09/25/14 Status: Completed morphine Sulfate 1 mg, 0.5 mL, Route: IVP, Drug form: INJ, Q1H, Dosing Weight 109.091, kg, PRN Pa in Score 7-10, Start date: 09/23/14 10:46:00, Duration: 30 day, Stop date: 10/23 10:45:00 Notes: (Same as:MORPhine Sulfate) Start Date: 09/23/14 Stop Date: 09/25/14 Status: Discontinued naloxone 0.04 mg, Route: IVP, Q2MIN, Dosing Weight 109.091, kg, PRN Narcotic Reversal, St art date: 09/23/14 11:12:00, Duration: 8 doses or times, Stop date: Limited # of times Start Date: 09/23/14 Stop Date: 09/23/14 Status: Discontinued NS (Bolus) IV 250 mL, 250 ml/hr, Infuse Over: 1 hr, Route: IV, 250, Drug form: INJ, ONCE, Prio rity: STAT, Dosing Weight 109.091 kg, Start date: 09/23/14 20:54:00, Duration: 1 doses or times, Stop date: 09/23/14 20:54:00 Start Date: 09/23/14 Stop Date: 09/24/14 Status: Completed NS (Bolus) IV 500 mL, 500 ml/hr, Infuse Over: 1 hr, Route: IV, 500, Drug form: INJ, ONCE, Prio rity: STAT, Dosing Weight 109.091 kg, Start date: 09/23/14 14:48:00, Duration: 1 doses or times, Stop date: 09/23/14 14:48:00 Start Date: 09/23/14 Stop Date: 09/23/14 Status: Completed ondansetron 4 mg, Route: IVP, ONCE, Dosing Weight 109.091, kg, PRN Nausea & Vomiting, Start date: 09/23/14 11:12:00 Start Date: 09/23/14 Stop Date: 09/23/14 Status: Discontinued Pepcid 20 mg, 1 tab, Route: PO, Drug form: TAB, Daily, Start date: 09/24/14 9:00:00, Du ration: 30 day, Stop date: 10/23/14 9:00:00 Notes: (Same as: Pepcid) Start Date: 09/24/14 Stop Date: 09/25/14 Status: Discontinued Plavix 75 mg oral tablet 75 mg=1 tab, PO, Daily, # 30 tab, 0 Refill(s) Start Date: 09/22/14 Stop Date: 09/25/14 Status: Discontinued ranitidine 150 mg oral capsule 150 mg, 1 cap, Route: PO, Drug form: CAP, Daily, Dosing Weight 109.091, kg, Star t date: 09/24/14 9:00:00, Duration: 30 day, Stop date: 10/23/14 9:00:00 Start Date: 09/24/14 Stop Date: 09/23/14 Status: Deleted Saline Flush 0.9% 10 ml, Route: IVP, Drug Form: INJ, Dosing Weight 109.091, kg, Q12H, Start date: 09/23/14 21:00:00, Duration: 30 day, Stop date: 10/23/14 9:00:00 Notes: (Same as: BD Posiflush) Start Date: 09/23/14 Stop Date: 09/25/14 Status: Discontinued Saline Flush 0.9% 10 ml, Route: IVP, Drug Form: INJ, Dosing Weight 109.091, kg, PRN, PRN Line Flus h, Start date: 09/23/14 10:46:00, Duration: 30 day, Stop date: 10/23/14 10:45:00 Notes: (Same as: BD Posiflush) Start Date: 09/23/14 Stop Date: 09/25/14 Status: Discontinued senna 8.6 mg, 1 tab, Route: PO, Drug Form: TAB, Dosing Weight 109.091, kg, Q12H, Start date: 09/23/14 21:00:00, Duration: 30 day, Stop date: 10/23/14 9:00:00 Notes: (Same as: Annie) Start Date: 09/23/14 Stop Date: 09/25/14 Status: Discontinued Sodium Chloride 0.9% IV 1,000 mL 1,000 mL, Rate: 100 ml/hr, Infuse over: 10 hr, Route: IV, Dosing Weight 109.091 kg, Total Volume: 1,000, Start date: 09/23/14 10:46:00, Stop date: 10/23/14 10:4 5:00 Start Date: 09/23/14 Stop Date: 09/25/14 Status: Discontinued Tylenol with Codeine #3 oral tablet 1 tab, PO, Q4H, PRN Pain, X 7 day, # 50 tab, 0 Refill(s) Start Date: 09/25/14 Stop Date: 10/02/14 Status: Ordered Results BLOOD BANK RESULTS 1 2 3 Most recent to oldest [Reference Range]: AB POS *Unknown* (09/23/14 6:43 AM) ABO/Rh Negative (09/23/14 6:43 AM) Antibody Scrn ELECTROLYTES 1 2 3 Most recent to oldest [Reference Range]: 146 mEq/L *HI* (09/25/14 12:25 AM) 138 mEq/L (09/23/14 10:54 AM) 143 mEq/L (09/23/14 6:43 AM) Sodium Lvl [135-145 mEq/L] 3.7 mEq/L (09/25/14 12:25 AM) 4.2 mEq/L (09/23/14 10:54 AM) 4.0 mEq/L (09/23/14 6:43 AM) Potassium Lvl [3.5-5.1 mEq/L] 114 mEq/L *HI* (09/25/14 12:25 AM) 105 mEq/L (09/23/14 10:54 AM) 108 mEq/L (09/23/14 6:43 AM) Chloride Lvl [95-109 mEq/L] 21 mEq/L *LOW* (09/25/14 12:25 AM) 25 mEq/L (09/23/14 10:54 AM) 24 mEq/L (09/23/14 6:43 AM) CO2 [24-32 mEq/L] 14.7 mEq/L (09/25/14 12:25 AM) 12.2 mEq/L (09/23/14 10:54 AM) 15.0 mEq/L (09/23/14 6:43 AM) AGAP [10.0-20.0 mEq/L] CHEM PANEL 1 2 3 Most recent to oldest [Reference Range]: 0.8 mg/dL (09/25/14 12:25 AM) 0.9 mg/dL (09/23/14 10:54 AM) 0.8 mg/dL (09/23/14 6:43 AM) Creatinine Lvl [0.5-1.4 mg/dL] 100 mL/min/1.73m2 1 *NA* (09/25/14:25 AM) 95 mL/min/1.73m2 2 *NA* (09/23/14 10:54 AM) 100 mL/min/1.73m2 3 *NA* (09/23/14 6:43 AM) eGFR 17 mg/dL (09/25/14 12:25 AM) 19 mg/dL (09/23/14 10:54 AM) 21 mg/dL (09/23/14 6:43 AM) BUN [7-22 mg/dL] 21 (09/25/14 12:25 AM) B/C Ratio [6-25] 117 mg/dL 4 *HI* (09/25/14:25 AM) 90 mg/dL 5 (09/23/14 10:54 AM) 90 mg/dL 6 (09/23/14 6:43 AM) Glucose Lvl [70-99 mg/dL] 5.7 g/dL *LOW* (09/25/14 12:25 AM) Total Protein [6.4-8.4 g/dL] 2.9 g/dL *LOW* (09/25/14 12:25 AM) Albumin Lvl [3.5-5.0 g/dL] 2.8 g/dL (09/25/14 12:25 AM) Globulin [2.0-4.0 g/dL] 1.0 (09/25/14 12:25 AM) A/G Ratio [0.7-1.6] 7.9 mg/dL *LOW* (4/24/15 12:25 AM) 8.3 mg/dL *LOW* (09/23/14 10:54 AM) 8.6 mg/dL (09/23/14 6:43 AM) Calcium Lvl [8.5-10.5 mg/dL] 13 unit/L (09/25/14 12:25 AM) ALT [0-65 unit/L] 8 unit/L (09/25/14 12:25 AM) AST [0-37 unit/L] 51 unit/L (09/25/14 12:25 AM) Alk Phos [39-136 unit/L] 0.3 mg/dL (09/25/14 12:25 AM) Bili Total [0.2-1.3 mg/dL] 1Result Comment: The [...] values reflect the clinical guidelines of the [place] [employer]. 5Interpretive Data: Adult reference range values reflect the clinical guidelines of the [place] [employer]. 6Interpretive Data: Adult reference range values reflect the clinical guidelines of the [place] [employer]. HEMATOLOGY 1 2 3 Most recent to oldest [Reference Range]: 8.9 K/CMM (09/25/14 12:25 AM) 6.2 K/CMM (09/23/14 10:54 AM) 5.7 K/CMM (09/23/14 6:43 AM) WBC [3.7-10.4 K/CMM] 3.57 M/CMM *LOW* (09/25/14 12:25 AM) 4.60 M/CMM *LOW* (09/23/14 10:54 AM) 4.73 M/CMM (09/23/14 6:43 AM) RBC [4.70-6.10 M/CMM] 8.4 g/dL *LOW* (09/25/14 12:25 AM) 10.8 g/dL *LOW* (09/23/14 10:54 AM) 10.9 g/dL 7 *LOW* (09/23/14 6:43 AM) Hgb [14.0-18.0 g/dL] 27.6 % *LOW* (09/25/14 12:25 AM) 35.8 % *LOW* (09/23/14 10:54 AM) 36.7 % *LOW* (09/23/14 6:43 AM) Hct [42.0-54.0 %] 77.4 fL *LOW* (09/25/14 12:25 AM) 77.9 fL *LOW* (09/23/14 10:54 AM) 77.7 fL *LOW* (09/23/14 6:43 AM) MCV [80.0-94.0 fL] 23.4 pg *LOW* (09/25/14 12:25 AM) 23.4 pg *LOW* (09/23/14 10:54 AM) 23.0 pg *LOW* (09/23/14 6:43 AM) MCH [27.0-31.0 pg] 30.3 g/dL *LOW* (09/25/14 12:25 AM) 30.1 g/dL *LOW* (09/23/14 10:54 AM) 29.6 g/dL *LOW* (09/23/14 6:43 AM) MCHC [32.0-36.0 g/dL] 16.8 % *HI* (09/25/14 12:25 AM) 17.0 % *HI* (09/23/14 10:54 AM) 16.1 % *HI* (09/23/14 6:43 AM) RDW [11.5-14.5 %] 156 K/CMM (09/25/14 12:25 AM) 171 K/CMM (09/23/14 10:54 AM) 184 K/CMM (09/23/14 6:43 AM) Platelet [133-450 K/CMM] 11.9 fL *HI* (09/25/14 12:25 AM) 11.5 fL *HI* (09/23/14 10:54 AM) 12.5 fL *HI* (09/23/14 6:43 AM) MPV [7.4-10.4 fL] 72.2 % (09/25/14 12:25 AM) 70.9 % (09/23/14 10:54 AM) 46.0 % (09/23/14 6:43 AM) Segs [45.0-75.0 %] 0.0 % (09/23/14 6:43 AM) Bands [0.0-11.0 %] 17.8 % *LOW* (09/25/14 12:25 AM) 23.6 % (09/23/14 10:54 AM) 51.0 % *HI* (09/23/14 6:43 AM) Lymphocytes [20.0-40.0 %] 0.0 % (09/23/14 6:43 AM) Atypical Lymphs [<=0.0 %] 9.2 % (09/25/14 12:25 AM) 4.0 % (09/23/14 10:54 AM) 3.0 % (09/23/14 6:43 AM) Monocytes [2.0-12.0 %] 0.4 % (09/25/14 12:25 AM) 0.7 % (09/23/14 10:54 AM) Eosinophils [0.0-4.0 %] 0.4 % (09/25/14 12:25 AM) 0.8 % (09/23/14 10:54 AM) Basophils [0.0-1.0 %] 6.6 K/CMM (09/25/14 12:25 AM) 4.4 K/CMM (09/23/14 10:54 AM) 2.6 K/CMM (09/23/14 6:43 AM) Segs-Bands # [1.5-8.1 K/CMM] 1.6 K/CMM (09/25/14 12:25 AM) 1.5 K/CMM (09/23/14 10:54 AM) 2.9 K/CMM (09/23/14 6:43 AM) Lymphocytes # [1.0-5.5 K/CMM] 0.8 K/CMM (09/25/14 12:25 AM) 0.2 K/CMM (09/23/14 10:54 AM) 0.2 K/CMM (09/23/14 6:43 AM) Monocytes # [0.0-0.8 K/CMM] 0.1 K/CMM (09/23/14 10:54 AM) Basophils # [0.0-0.2 K/CMM] 1+ (09/23/14 10:54 AM) Hypochrom [None Seen] 1+ *ABN* (09/25/14 12:25 AM) 1+ *ABN* (09/23/14 10:54 AM) 1+ *ABN* (09/23/14 6:43 AM) Microcyte [None Seen] Rare *Unknown* (09/23/14 6:43 AM) Schistocyte Normal (09/23/14 6:43 AM) Plt Morph Moderate *ABN* (09/23/14 10:54 AM) Large Plt [None Seen] 14.3 seconds (09/25/14 12:25 AM) 14.3 seconds (09/23/14 10:54 AM) 14.0 seconds (09/23/14 6:43 AM) PT [12.0-14.7 seconds] 1.10 8 (09/25/14 12:25 AM) 1.10 9 (09/23/14 10:54 AM) 1.08 10 (09/23/14 6:43 AM) INR [0.85-1.17] 27.2 seconds 11 (09/25/14 12:25 AM) 29.2 seconds 12 (09/23/14 10:54 AM) 28.7 seconds 13 (09/23/14 6:43 AM) PTT [22.9-35.8 seconds] 7Result Comment: rechecked results 8Interpretive Data: RECOMMENDED RANGES FOR PROTIME INR: [...] PATIENTS ON STABLE ANTICOAGULANT THERAPY. 10Interpretive Data: RECOMMENDED RANGES FOR PROTIME INR: 2.0-3.0 for most medical and surgical thromboembolic states. 2.5-3.5 for artificial heart valves and recurrent embolism. INR SHOULD BE USED ONLY FOR PATIENTS ON STABLE ANTICOAGULANT THERAPY. 11Interpretive Data: Heparin Therapeutic Range: 57 - 92 Seconds 12Interpretive Data: Heparin Therapeutic Range: 57 - 92 Seconds 13Interpretive Data: Heparin Therapeutic Range: 57 - 92 Seconds Immunizations Vaccine Date Refusal Reason diphtheria/pertussis, acel/tetanus adult 07/13/14 Procedures Procedure Date Related Diagnosis Body Site Knee replacement Procedure on stomach1 Rotator cuff repair 1gastric sleeve Social History Social History Type Response Alcohol Never, Previous treatment: None. Smoking Status Never smoker; Exposure to Tobacco Smoke None; Cigarette Smoking Last 365 Days No; Reg Smoking Cessation Counseling Yes Assessment and Plan No data available for this section
--- OUTSIDE RECORDS SUMMARY | 2018-07-10 06:31 | XMS REPORT | Continuity of Care Document ---
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
--- OUTSIDE RECORDS SUMMARY | 2018-07-10 06:31 | XMS REPORT ---
Author Author [facility] Address Unknown Phone Unavailable Care Team Providers Care Occupational Health And Safety Adviser Name Role Phone KENNEDY ROSAS Unavailable Unavailable Problems This patient has no known problems. Allergies, Adverse Reactions, Alerts This patient has no known allergies or adverse reactions. Medications This patient has no known medications. Results Test Description Test Time Test Comments Text Results Atomic Results Result Comments U/S, RENAL, COMPLETE 2018-06-24 20:53:00 Reason for exam:->HEMATURIA FINAL REPORT Ultrasound of the Kidneys, 06/24/2018. Clinical History: Hematuria. Discussion:Sonographic evaluation of the kidneys is performed. Right [...] darlene. Fluid: No perinephric fluid. Bladder: Unremarkable. IMPRESSION:Simple bilateral renal cysts. No evidence of nephrolithiasis or hydronephrosis. Signed: Enmanuel Calvo MDReport Verified Date/Time: 06/24/2018 20:53:40 Reading Location: [facility] B1 [id number] Consult Reading Room ALYSIS W/ REFLEX URINE CULTURE 2018-06-24 18:40:00 COLOR (BEAKER) (test wxxh=323) [place] CLARITY (BEAKER) (test xgsm=819) Clear SPECIFIC GRAVITY UA (BEAKER) (test xujg=060) 1.003 1.001-1.035 PH UA (BEAKER) (test dtrn=325) 6.5 5.0-8.0 PROTEIN UA (BEAKER) (test dwyq=864) 70 mg/dL Negative GLUCOSE UA (BEAKER) (test ulrz=112) Negative Negative KETONES UA (BEAKER) (test pwtx=590) Negative Negative BILIRUBIN UA (BEAKER) (test usbp=261) Negative Negative BLOOD UA (BEAKER) (test osmz=621) Large Negative NITRITE UA (BEAKER) (test vfli=140) Negative Negative LEUKOCYTE ESTERASE UA (BEAKER) (test qxef=557) Small Negative UROBILINOGEN UA (BEAKER) (test mbeh=825) 0.2 mg/dL 0.2-1.0 RBC UA (BEAKER) (test flth=602) 257 /HPF WBC UA (BEAKER) (test cvhr=306) 1 /HPF SOURCE(BEAKER) (test sxvh=9619) [id number] 05:46:00* Test Item Value Reference Range Comments BLOOD UREA NITROGEN (BEAKER) (test bhyo=592) 17 mg/dL 7-21 [id number] 05:46:00* Test Item Value Reference Range Comments SODIUM (BEAKER) (test pgwd=433) 138 meq/L 136-145 POTASSIUM (BEAKER) (test uqgj=215) 3.8 meq/L 3.5-5.1 CHLORIDE (BEAKER) (test iizy=977) 109 meq/L 98-107 CO2 (BEAKER) (test vzix=478) 22 meq/L 22-29 [id number] 05:46:00* Test Item Value Reference Range Comments CREATININE (BEAKER) (test uqse=491) 0.95 mg/dL 0.57-1.25 EGFR (BEAKER) (test hixt=5952) 81 mL/min/1.73 sq m ESTIMATED GFR IS NOT ACCURATE CREATININE CLEARANCE IN PREDICTING GLOMERULAR FILTRATION RATE. ESTIMATED GFR IS NOT APPLICABLE FOR DIALYSIS PATIENTS. CBC (HEMOGRAM ONLY)2018-01-31 05:29:00* Test Item Value Reference Range Comments WHITE BLOOD CELL COUNT (BEAKER) (test ovdd=021) 8.0 K/ L 3.5-10.5 RED BLOOD CELL COUNT (BEAKER) (test nevw=895) 3.48 M/ L 4.63-6.08 HEMOGLOBIN (BEAKER) (test rrzc=517) 10.4 GM/DL 13.7-17.5 HEMATOCRIT (BEAKER) (test pkur=824) 33.3 % 40.1-51.0 MEAN CORPUSCULAR VOLUME (BEAKER) (test yrpp=335) 95.7 fL 79.0-92.2 MEAN CORPUSCULAR HEMOGLOBIN (BEAKER) (test yhzb=063) 29.9 pg 25.7-32.2 MEAN CORPUSCULAR HEMOGLOBIN CONC (BEAKER) (test gqwc=951) 31.2 GM/DL 32.3-36.5 RED CELL DISTRIBUTION WIDTH (BEAKER) (test lfmb=531) 15.6 % 11.6-14.4 PLATELET COUNT (BEAKER) (test wcrw=980) 177 K/CU MM 150-450 MEAN PLATELET VOLUME (BEAKER) (test nosy=869) 12.4 fL 9.4-12.4 NUCLEATED RED BLOOD CELLS (BEAKER) (test bmso=500) 0 /100 WBC 0-0 [id number] 12:06:00* Test Item Value Reference Range Comments ACTIVATED CLOTTING TIME (BEAKER) (test rjrs=758) 158 sec TESTED AT [place] [address] [id number] 11:28:00* Test Item Value Reference Range Comments ACTIVATED CLOTTING TIME (BEAKER) (test jmke=981) 268 sec TESTED AT [place] [id number] 10:48:00* Test Item Value Reference Range Comments ACTIVATED CLOTTING TIME (BEAKER) (test upqu=258) 290 sec TESTED AT [place] [id number] 10:18:00* Test Item Value Reference Range Comments ACTIVATED CLOTTING TIME (BEAKER) (test jiqh=864) 318 sec TESTED AT [place] [id number] 10:18:00* Test Item Value Reference Range Comments ACTIVATED CLOTTING TIME (BEAKER) (test jxbc=700) 268 sec TESTED AT [place] [address] [id number] 09:43:00* Test Item Value Reference Range Comments ACTIVATED CLOTTING TIME (BEAKER) (test undj=882) [address] [facility] [address] [place] [address] [id number] 06:09:00* Test Item Value Reference Range Comments PARTIAL THROMBOPLASTIN TIME (BEAKER) (test nkqj=616) 33.7 seconds 22.5-36.0 Within 24 hours, if on CoumadinPROTHROMBIN TIME/[id number] 06:08:00* Test Item Value Reference Range Comments PROTIME (BEAKER) (test nnrr=869) 25.3 seconds 11.7-14.7 INR (BEAKER) (test bddj=134) 2.3 <=5.9 RECOMMENDED COUMADIN/WARFARIN INR THERAPY RANGESSTANDARD DOSE: 2.0 - 3.0 Inclu rayne: PROPHYLAXIS for venous thrombosis, systemic embolization; TREATMENT for alton ous thrombosis and/or pulmonary embolus.HIGH RISK: Target INR is 2.5-3.5 for pat ients with mechanical heart valves.Within 24 hours, if on CoumadinMAGNESIUM 2018-01-30 06:07:00* Test Item Value Reference Range Comments MAGNESIUM (BEAKER) (test xfoh=839) 2.2 mg/dL 1.6-2.6 BASIC METABOLIC [id number] 06:07:00* Test Item Value Reference Range Comments SODIUM (BEAKER) (test mboy=430) 141 meq/L 136-145 POTASSIUM (BEAKER) (test ponw=837) 4.1 meq/L 3.5-5.1 CHLORIDE (BEAKER) (test grpk=930) 109 meq/L 98-107 CO2 (BEAKER) (test zacn=794) 24 meq/L 22-29 BLOOD UREA NITROGEN (BEAKER) (test rcxk=271) 19 mg/dL 7-21 CREATININE (BEAKER) (test stdc=974) 0.92 mg/dL 0.57-1.25 GLUCOSE RANDOM (BEAKER) (test yzgc=808) 95 mg/dL 70-105 CALCIUM (BEAKER) (test zhzl=718) 9.4 mg/dL 8.4-10.2 EGFR (BEAKER) (test akeu=3602) 84 mL/min/1.73 sq m ESTIMATED GFR IS NOT ACCURATE CREATININE CLEARANCE IN PREDICTING GLOMERULAR FILTRATION RATE. ESTIMATED GFR IS NOT APPLICABLE FOR DIALYSIS PATIENTS. HEPATIC FUNCTION [id number] 06:07:00* Test Item Value Reference Range Comments TOTAL PROTEIN (BEAKER) (test eewp=329) 6.7 gm/dL 6.0-8.3 ALBUMIN (BEAKER) (test wedd=0570) 4.0 g/dL 3.5-5.0 BILIRUBIN TOTAL (BEAKER) (test npfd=594) 0.6 mg/dL 0.2-1.2 BILIRUBIN DIRECT (BEAKER) (test ijfv=403) 0.3 mg/dL 0.1-0.5 ALKALINE PHOSPHATASE (BEAKER) (test xdfu=439) 55 U/L 40-150 AST (SGOT) (BEAKER) (test ifke=627) 18 U/L 5-34 ALT (SGPT) (BEAKER) (test vhcu=321) 20 U/L 6-55 COMPREHENSIVE METABOLIC [id number] 06:07:00* Test Item Value Reference Range Comments TOTAL PROTEIN (BEAKER) (test rore=438) 6.7 gm/dL 6.0-8.3 ALBUMIN (BEAKER) (test mqvq=2900) 4.0 g/dL 3.5-5.0 ALKALINE PHOSPHATASE (BEAKER) (test dqyx=232) 55 U/L 40-150 BILIRUBIN TOTAL (BEAKER) (test azwl=648) 0.6 mg/dL 0.2-1.2 SODIUM (BEAKER) (test lxyv=823) 141 meq/L 136-145 POTASSIUM (BEAKER) (test jezi=791) 4.1 meq/L 3.5-5.1 CHLORIDE (BEAKER) (test diqm=631) 109 meq/L 98-107 CO2 (BEAKER) (test boxx=202) 24 meq/L 22-29 BLOOD UREA NITROGEN (BEAKER) (test cgbk=774) 19 mg/dL 7-21 CREATININE (BEAKER) (test syqo=409) 0.92 mg/dL 0.57-1.25 GLUCOSE RANDOM (BEAKER) (test opuc=436) 95 mg/dL 70-105 CALCIUM (BEAKER) (test xuxt=111) 9.4 mg/dL 8.4-10.2 AST (SGOT) (BEAKER) (test vmvx=492) 18 U/L 5-34 ALT (SGPT) (BEAKER) (test thxy=759) 20 U/L 6-55 EGFR (BEAKER) (test xxap=1663) 84 mL/min/1.73 sq m ESTIMATED GFR IS NOT ACCURATE CREATININE CLEARANCE IN PREDICTING GLOMERULAR FILTRATION RATE. ESTIMATED GFR IS NOT APPLICABLE FOR DIALYSIS PATIENTS. CBC W/PLT COUNT & AUTO [id number] 05:54:00* Test Item Value Reference Range Comments WHITE BLOOD CELL COUNT (BEAKER) (test ouxq=412) 6.6 K/ L 3.5-10.5 RED BLOOD CELL COUNT (BEAKER) (test wopd=390) 4.26 M/ L 4.63-6.08 HEMOGLOBIN (BEAKER) (test ctmf=384) 12.5 GM/DL 13.7-17.5 HEMATOCRIT (BEAKER) (test kfmb=480) 40.1 % 40.1-51.0 MEAN CORPUSCULAR VOLUME (BEAKER) (test wtun=475) 94.1 fL 79.0-92.2 MEAN CORPUSCULAR HEMOGLOBIN (BEAKER) (test dwld=668) 29.3 pg 25.7-32.2 MEAN CORPUSCULAR HEMOGLOBIN CONC (BEAKER) (test rnvh=847) 31.2 GM/DL 32.3-36.5 RED CELL DISTRIBUTION WIDTH (BEAKER) (test uyjs=961) 15.2 % 11.6-14.4 PLATELET COUNT (BEAKER) (test rsor=683) 218 K/CU MM 150-450 MEAN PLATELET VOLUME (BEAKER) (test weos=563) 11.3 fL 9.4-12.4 NUCLEATED RED BLOOD CELLS (BEAKER) (test nrzk=822) 0 /100 WBC 0-0 NEUTROPHILS RELATIVE PERCENT (BEAKER) (test ycgo=915) 62 % LYMPHOCYTES RELATIVE PERCENT (BEAKER) (test gfqs=647) 26 % MONOCYTES RELATIVE PERCENT (BEAKER) (test cpyy=687) 9 % EOSINOPHILS RELATIVE PERCENT (BEAKER) (test tffb=049) 1 % BASOPHILS RELATIVE PERCENT (BEAKER) (test mwkw=809) 1 % NEUTROPHILS ABSOLUTE COUNT (BEAKER) (test cldj=367) 4.11 K/ L 1.78-5.38 LYMPHOCYTES ABSOLUTE COUNT (BEAKER) (test sfci=247) 1.69 K/ L 1.32-3.57 MONOCYTES ABSOLUTE COUNT (BEAKER) (test qcgk=449) 0.62 K/ L 0.30-0.82 EOSINOPHILS ABSOLUTE COUNT (BEAKER) (test juwh=748) 0.09 K/ L 0.04-0.54 BASOPHILS ABSOLUTE COUNT (BEAKER) (test wmny=707) 0.06 K/ L 0.01-0.08 IMMATURE GRANULOCYTES-RELATIVE PERCENT (BEAKER) (test ceqc=3315) 1 % 0-1 CBC W/PLT COUNT & AUTO [id number] 05:53:00* Test Item Value Reference Range Comments WHITE BLOOD CELL COUNT (BEAKER) (test puhh=656) 6.3 K/ L 3.5-10.5 RED BLOOD CELL COUNT (BEAKER) (test ewbu=120) 4.26 M/ L 4.63-6.08 HEMOGLOBIN (BEAKER) (test nagj=361) 12.5 GM/DL 13.7-17.5 HEMATOCRIT (BEAKER) (test qety=703) 40.1 % 40.1-51.0 MEAN CORPUSCULAR VOLUME (BEAKER) (test vueq=008) 94.1 fL 79.0-92.2 MEAN CORPUSCULAR HEMOGLOBIN (BEAKER) (test csxu=947) 29.3 pg 25.7-32.2 MEAN CORPUSCULAR HEMOGLOBIN CONC (BEAKER) (test kgzs=265) 31.2 GM/DL 32.3-36.5 RED CELL DISTRIBUTION WIDTH (BEAKER) (test ovmb=102) 15.2 % 11.6-14.4 PLATELET COUNT (BEAKER) (test yprl=152) 211 K/CU MM 150-450 MEAN PLATELET VOLUME (BEAKER) (test rltm=145) 11.3 fL 9.4-12.4 NUCLEATED RED BLOOD CELLS (BEAKER) (test gifq=876) 0 /100 WBC 0-0 NEUTROPHILS RELATIVE PERCENT (BEAKER) (test uprw=353) 62 % LYMPHOCYTES RELATIVE PERCENT (BEAKER) (test tczk=386) 26 % MONOCYTES RELATIVE PERCENT (BEAKER) (test fxzi=366) 10 % EOSINOPHILS RELATIVE PERCENT (BEAKER) (test kqls=827) 1 % BASOPHILS RELATIVE PERCENT (BEAKER) (test etxu=365) 1 % NEUTROPHILS ABSOLUTE COUNT (BEAKER) (test djrf=693) 3.93 K/ L 1.78-5.38 LYMPHOCYTES ABSOLUTE COUNT (BEAKER) (test esgu=238) 1.61 K/ L 1.32-3.57 MONOCYTES ABSOLUTE COUNT (BEAKER) (test kjus=538) 0.60 K/ L 0.30-0.82 EOSINOPHILS ABSOLUTE COUNT (BEAKER) (test xxxm=919) 0.09 K/ L 0.04-0.54 BASOPHILS ABSOLUTE COUNT (BEAKER) (test pcex=164) 0.06 K/ L 0.01-0.08 IMMATURE GRANULOCYTES-RELATIVE PERCENT (BEAKER) (test cqqy=7428) 0 % 0-1 HEPATIC FUNCTION [id number] 12:18:00* Test Item Value Reference Range Comments TOTAL PROTEIN (BEAKER) (test xxvz=079) 6.8 gm/dL 6.0-8.3 ALBUMIN (BEAKER) (test ypgr=4023) 4.0 g/dL 3.5-5.0 BILIRUBIN TOTAL (BEAKER) (test jxse=954) 0.8 mg/dL 0.2-1.2 BILIRUBIN DIRECT (BEAKER) (test wyjd=670) 0.4 mg/dL 0.1-0.5 ALKALINE PHOSPHATASE (BEAKER) (test srnj=584) 52 U/L 40-150 AST (SGOT) (BEAKER) (test lpku=621) 14 U/L 5-34 ALT (SGPT) (BEAKER) (test wxmn=822) 11 U/L 6-55 COMPREHENSIVE METABOLIC [id number] 12:18:00* Test Item Value Reference Range Comments TOTAL PROTEIN (BEAKER) (test yeae=312) 6.8 gm/dL 6.0-8.3 ALBUMIN (BEAKER) (test kbbw=6263) 4.0 g/dL 3.5-5.0 ALKALINE PHOSPHATASE (BEAKER) (test acjd=781) 52 U/L 40-150 BILIRUBIN TOTAL (BEAKER) (test kylh=568) 0.8 mg/dL 0.2-1.2 SODIUM (BEAKER) (test jzur=220) 139 meq/L 136-145 POTASSIUM (BEAKER) (test punl=432) 4.0 meq/L 3.5-5.1 CHLORIDE (BEAKER) (test jpxt=189) 105 meq/L 98-107 CO2 (BEAKER) (test lusk=514) 26 meq/L 22-29 BLOOD UREA NITROGEN (BEAKER) (test ekcg=665) 21 mg/dL 7-21 CREATININE (BEAKER) (test ppmh=502) 0.85 mg/dL 0.57-1.25 GLUCOSE RANDOM (BEAKER) (test jbpo=141) 89 mg/dL 70-105 CALCIUM (BEAKER) (test moyz=990) 9.3 mg/dL 8.4-10.2 AST (SGOT) (BEAKER) (test ffef=294) 14 U/L 5-34 ALT (SGPT) (BEAKER) (test ahbn=955) 11 U/L 6-55 EGFR (BEAKER) (test wliv=7533) 92 mL/min/1.73 sq m ESTIMATED GFR IS NOT ACCURATE CREATININE CLEARANCE IN PREDICTING GLOMERULAR FILTRATION RATE. ESTIMATED GFR IS NOT APPLICABLE FOR DIALYSIS PATIENTS. PROTHROMBIN TIME/[id number] 12:05:00* Test Item Value Reference Range Comments PROTIME (BEAKER) (test wady=484) 19.1 seconds 11.7-14.7 INR (BEAKER) (test jwrs=465) 1.6 <=5.9 RECOMMENDED COUMADIN/WARFARIN INR THERAPY RANGESSTANDARD DOSE: 2.0 - 3.0 Inclu rayne: PROPHYLAXIS for venous thrombosis, systemic embolization; TREATMENT for alton ous thrombosis and/or pulmonary embolus.HIGH RISK: Target INR is 2.5-3.5 for pat ients with mechanical heart valves.Within 24 hours, if on [id number] 12:05:00* Test Item Value Reference Range Comments PARTIAL THROMBOPLASTIN TIME (BEAKER) (test dymp=905) 31.4 seconds 22.5-36.0 Within 24 hours, if on CoumadinCBC (HEMOGRAM ONLY)2017-12-12 11:55:00* Test Item Value Reference Range Comments WHITE BLOOD CELL COUNT (BEAKER) (test eham=302) 6.6 K/ L 3.5-10.5 RED BLOOD CELL COUNT (BEAKER) (test gnpk=842) 4.57 M/ L 4.63-6.08 HEMOGLOBIN (BEAKER) (test lhgn=865) 13.2 GM/DL 13.7-17.5 HEMATOCRIT (BEAKER) (test dyuj=584) 41.7 % 40.1-51.0 MEAN CORPUSCULAR VOLUME (BEAKER) (test qtuc=133) 91.2 fL 79.0-92.2 MEAN CORPUSCULAR HEMOGLOBIN (BEAKER) (test xzxf=218) 28.9 pg 25.7-32.2 MEAN CORPUSCULAR HEMOGLOBIN CONC (BEAKER) (test flal=495) 31.7 GM/DL 32.3-36.5 RED CELL DISTRIBUTION WIDTH (BEAKER) (test rnif=784) 14.7 % 11.6-14.4 PLATELET COUNT (BEAKER) (test ntqu=083) 227 K/CU MM 150-450 MEAN PLATELET VOLUME (BEAKER) (test hlun=935) 11.9 fL 9.4-12.4 NUCLEATED RED BLOOD CELLS (BEAKER) (test hmtp=872) 0 /100 WBC 0-0 CT, HEART, [id number] 15:20:00Addendum BeginsREPORT STATUS:A ADDENDUM: I agree with the nonvascular findings as reported by Dr. Sanchez. Signed: Kenney Cleveland MDReport Verified Date/Time: 11/22/2017 15:20:54 Reading Location: [place] [address] Angio Body Reading RoomAddendum EndsFINAL REPORT CT angiography of the pulmonary veins, 22 November 2017 INDICATION: This is a 57 years old male with history of atrial fibrillation presented here for pulmonary vein ostial mapping. This study is performed in an attempt to avoid invasive procedure. TECHNIQUE: Spiral acquisition during intravenous contrast administration using a [employer] multidetector multislice cardiac CT scanner without prospective ECG triggering. Multiplanar reconstructions were performed interactively by the interpreting physician using an independent ([employer]) workstation. Please refer to the contrast sheet scanned in the [employer] system for the amount and route of contrast given. This exam was performed according to our departmental dose-optimisation programme, which includes automated exposure control, adjustment of the mA and/or kV according to patient size and/or use of iterative reconstruction technique. Dose modulation, iterative reconstruction, and/or weight based adjustment of the mA/kV was ut ilized to reduce the radiation dose to as low as reasonably achievable. FINDINGS : VASCULAR: The pericardium appears unremarkable. The central pulmonary artery is prominent with no evidence of central pulmonary artery embolism. Correlate ap propriate aetiology. Ectasia is seen in the mid ascending thoracic aorta measur e 3.9 x 3.9 cm in diameter. The aortic root is normal in calibre. No aneurysmal dilation is seen in the entire thoracic aorta. There is no evidence for acute ao rtic pathology. The arch vessel branching pattern is normal, and the origins of the arch branch vessels are all widely patent. The cardiac chambers demonstrate normal atrioventricular and ventriculoarterial concordance, and systemic and pul monary venous return. The left ventricle is normal in size, and no abnormal mass is identified. The coronary artery origins are normal. Coronary artery calcif ication is seen in the LAD territory. Left atrial enlargement is identified. No thrombus is visualized in the left atrial appendage. Pulmonary vein morphology is normal with pairs of pulmonary veins on each side of the left atrium. There i s no evidence for pulmonary vein stenosis. Quantitative pulmonary vein ostial ma pping (measured utilizing MPR analysis) is as follows: Pulmonary vein Major axi s Minor axis Cross-sectional area Right upper 20 mm 16 mm 2.5 zy4Igezr middle 10 mm 10 mm 0.9 jl1Aynza lower 16 mm 14 mm 1.8 vx6Stkj upper 17 mm 16 mm 2.3 va7Vgdm lower 19 mm 18 mm 2.5 cm2 NON-VASCULAR: The visualised thyroid gland appears grossly unremarkable. The chest wall and mediastinum appears normal. No signifi cant adenopathy is seen in the mediastinum, except for some small lymph nodes, c onsidered nonspecific in nature. In the lung windows, no obvious endobronchial lesion is seen, and no pleural effusion is identified. No suspicious pulmonary n odule is seen. Limited images of the upper abdomen reveals no gross abnormality. Suture material is identified along the stomach indicating prior GI surgery. No acute bony pathology is seen except for the presence of some degenerative engel es. IMPRESSIONS: 1. The left atrium is enlarged. No thrombus is visualized in the left atrial appendage. Scattered calcification is seen in the LAD territor y. 2. Pulmonary vein morphology is normal with pairs of pulmonary veins bilater ally. A right middle lobe pulmonary vein is identified. There is no evidence for pulmonary vein stenosis. Quantitative pulmonary vein ostial mapping is as noted above. The images is somewhat noisy. Overall, no significant interval change is seen when compared to prior examination. 3. Mild ectasia is seen in the mid a scending thoracic aorta as described above. No aneurysmal dilation is identified . 4. No acute pulmonary pathology. 5. Other findings as described above. 6. A n addendum will be dictated regarding the non-vascular findings by the Consultan t Radiologist. Signed: Javier Sanchezeport Verified Date/Time: 11/22/2017 09:51:44 Reading Location: [place] [address] Cardiology MRI C METABOLIC PANEL 2017-11-22 07:43:00* Test Item Value Reference Range Comments SODIUM (BEAKER) (test kjgb=870) 140 meq/L 136-145 POTASSIUM (BEAKER) (test yeho=630) 4.2 meq/L 3.5-5.1 CHLORIDE (BEAKER) (test onts=516) 105 meq/L 98-107 CO2 (BEAKER) (test ovys=908) 25 meq/L 22-29 BLOOD UREA NITROGEN (BEAKER) (test suyg=808) 18 mg/dL 7-21 CREATININE (BEAKER) (test snnc=480) 1.00 mg/dL 0.57-1.25 GLUCOSE RANDOM (BEAKER) (test tqpe=660) 118 mg/dL 70-105 CALCIUM (BEAKER) (test mtha=966) 9.2 mg/dL 8.4-10.2 EGFR (BEAKER) (test rqso=2114) 76 mL/min/1.73 sq m ESTIMATED GFR IS NOT ACCURATE CREATININE CLEARANCE IN PREDICTING GLOMERULAR FILTRATION RATE. ESTIMATED GFR IS NOT APPLICABLE FOR DIALYSIS PATIENTS. CBC (HEMOGRAM ONLY)2017-11-22 07:20:00* Test Item Value Reference Range Comments WHITE BLOOD CELL COUNT (BEAKER) (test bqso=264) 12.6 K/ L 3.5-10.5 RED BLOOD CELL COUNT (BEAKER) (test qobr=540) 4.34 M/ L 4.63-6.08 HEMOGLOBIN (BEAKER) (test fpnb=360) 12.6 GM/DL 13.7-17.5 HEMATOCRIT (BEAKER) (test gdoi=816) 40.2 % 40.1-51.0 MEAN CORPUSCULAR VOLUME (BEAKER) (test zyaq=969) 92.6 fL 79.0-92.2 MEAN CORPUSCULAR HEMOGLOBIN (BEAKER) (test aise=759) 29.0 pg 25.7-32.2 MEAN CORPUSCULAR HEMOGLOBIN CONC (BEAKER) (test ocqb=263) 31.3 GM/DL 32.3-36.5 RED CELL DISTRIBUTION WIDTH (BEAKER) (test bxdx=595) 14.0 % 11.6-14.4 PLATELET COUNT (BEAKER) (test gbaj=608) 143 K/CU MM 150-450 MEAN PLATELET VOLUME (BEAKER) (test nkix=337) 12.5 fL 9.4-12.4 NUCLEATED RED BLOOD CELLS (BEAKER) (test pmyg=304) 0 /100 WBC 0-0 [id number] 08:43:00* Test Item Value Reference Range Comments MAGNESIUM (BEAKER) (test xtju=274) 2.5 mg/dL 1.6-2.6 Specimen slightly hemolyzed COMPREHENSIVE METABOLIC [id number] 08:43:00* Test Item Value Reference Range Comments TOTAL PROTEIN (BEAKER) (test zfzs=806) 6.7 gm/dL 6.0-8.3 Specimen slightly hemolyzed ALBUMIN (BEAKER) (test rvei=2113) 4.2 g/dL 3.5-5.0 Specimen slightly hemolyzed ALKALINE PHOSPHATASE (BEAKER) (test prsn=303) 47 U/L 40-150 BILIRUBIN TOTAL (BEAKER) (test gmsi=122) 0.9 mg/dL 0.2-1.2 Specimen slightly hemolyzed SODIUM (BEAKER) (test opqy=788) 142 meq/L 136-145 POTASSIUM (BEAKER) (test rnbr=952) 4.2 meq/L 3.5-5.1 Specimen slightly hemolyzed CHLORIDE (BEAKER) (test yrlx=544) 108 meq/L 98-107 CO2 (BEAKER) (test coox=472) 24 meq/L 22-29 BLOOD UREA NITROGEN (BEAKER) (test uvkc=179) 21 mg/dL 7-21 CREATININE (BEAKER) (test ngtu=905) 0.92 mg/dL 0.57-1.25 Specimen slightly hemolyzed GLUCOSE RANDOM (BEAKER) (test knin=666) 97 mg/dL 70-105 CALCIUM (BEAKER) (test kxhj=660) 9.4 mg/dL 8.4-10.2 AST (SGOT) (BEAKER) (test wrjt=295) 16 U/L 5-34 Specimen slightly hemolyzed ALT (SGPT) (BEAKER) (test oolz=133) 14 U/L 6-55 Specimen slightly hemolyzed EGFR (BEAKER) (test iwci=3373) 84 mL/min/1.73 sq m ESTIMATED GFR IS NOT ACCURATE CREATININE CLEARANCE IN PREDICTING GLOMERULAR FILTRATION RATE. ESTIMATED GFR IS NOT APPLICABLE FOR DIALYSIS PATIENTS. [id number] 08:35:00* Test Item Value Reference Range Comments PARTIAL THROMBOPLASTIN TIME (BEAKER) (test yfuv=226) 34.8 seconds 22.5-36.0 PROTHROMBIN TIME/[id number] 08:34:00* Test Item Value Reference Range Comments PROTIME (BEAKER) (test iyju=994) 21.9 seconds 11.7-14.7 INR (BEAKER) (test ntrr=334) 1.9 <=5.9 RECOMMENDED COUMADIN/WARFARIN INR THERAPY RANGESSTANDARD DOSE: 2.0 - 3.0 Inclu rayne: PROPHYLAXIS for venous thrombosis, systemic embolization; TREATMENT for alton ous thrombosis and/or pulmonary embolus.HIGH RISK: Target INR is 2.5-3.5 for pat ients with mechanical heart valves.CBC W/PLT COUNT & AUTO [id number] 08:23:00* Test Item Value Reference Range Comments WHITE BLOOD CELL COUNT (BEAKER) (test bsmi=117) 6.5 K/ L 3.5-10.5 RED BLOOD CELL COUNT (BEAKER) (test mkdl=167) 4.71 M/ L 4.63-6.08 HEMOGLOBIN (BEAKER) (test sqsl=799) 13.6 GM/DL 13.7-17.5 HEMATOCRIT (BEAKER) (test owxq=246) 43.8 % 40.1-51.0 MEAN CORPUSCULAR VOLUME (BEAKER) (test qeia=350) 93.0 fL 79.0-92.2 MEAN CORPUSCULAR HEMOGLOBIN (BEAKER) (test ijpj=779) 28.9 pg 25.7-32.2 MEAN CORPUSCULAR HEMOGLOBIN CONC (BEAKER) (test hsor=795) 31.1 GM/DL 32.3-36.5 RED CELL DISTRIBUTION WIDTH (BEAKER) (test lzzw=117) 13.8 % 11.6-14.4 PLATELET COUNT (BEAKER) (test gblx=351) 233 K/CU MM 150-450 MEAN PLATELET VOLUME (BEAKER) (test xoib=656) 12.6 fL 9.4-12.4 NUCLEATED RED BLOOD CELLS (BEAKER) (test bzrf=735) 0 /100 WBC 0-0 NEUTROPHILS RELATIVE PERCENT (BEAKER) (test lpdo=599) 58 % LYMPHOCYTES RELATIVE PERCENT (BEAKER) (test xpux=369) 28 % MONOCYTES RELATIVE PERCENT (BEAKER) (test ejfp=186) 12 % EOSINOPHILS RELATIVE PERCENT (BEAKER) (test pvrb=487) 1 % BASOPHILS RELATIVE PERCENT (BEAKER) (test czke=034) 1 % NEUTROPHILS ABSOLUTE COUNT (BEAKER) (test tpby=144) 3.79 K/ L 1.78-5.38 LYMPHOCYTES ABSOLUTE COUNT (BEAKER) (test kqaw=212) 1.84 K/ L 1.32-3.57 MONOCYTES ABSOLUTE COUNT (BEAKER) (test mtew=383) 0.75 K/ L 0.30-0.82 EOSINOPHILS ABSOLUTE COUNT (BEAKER) (test mdhp=727) 0.08 K/ L 0.04-0.54 BASOPHILS ABSOLUTE COUNT (BEAKER) (test gzmd=746) 0.06 K/ L 0.01-0.08 IMMATURE GRANULOCYTES-RELATIVE PERCENT (BEAKER) (test dkgv=0043) 0 % 0-1 [id number] 12:53:00* Test Item Value Reference Range Comments ACTIVATED CLOTTING TIME (BEAKER) (test qzcr=835) 109 sec TESTED AT [place] [address] [id number] 11:31:00* Test Item Value Reference Range Comments ACTIVATED CLOTTING TIME (BEAKER) (test kqeu=044) 312 sec TESTED AT [place] [address] [id number] 11:31:00* Test Item Value Reference Range Comments ACTIVATED CLOTTING TIME (BEAKER) (test wtuu=411) 296 sec TESTED AT [place] [address] [id number] 11:31:00* Test Item Value Reference Range Comments ACTIVATED CLOTTING TIME (BEAKER) (test lnue=088) 285 sec TESTED AT [place] [address] [id number] 11:31:00* Test Item Value Reference Range Comments ACTIVATED CLOTTING TIME (BEAKER) (test rhrv=610) 301 sec TESTED AT [place] [address] [id number] 11:31:00* Test Item Value Reference Range Comments ACTIVATED CLOTTING TIME (BEAKER) (test npkp=213) 279 sec TESTED AT [place] [address] [id number] 11:31:00* Test Item Value Reference Range Comments ACTIVATED CLOTTING TIME (BEAKER) (test vuch=293) 263 sec TESTED AT [place] [address] [id number] 10:03:00* Test Item Value Reference Range Comments ACTIVATED CLOTTING TIME (BEAKER) (test jrgf=955) 224 sec TESTED AT [place] [address] [id number] 06:41:00* Test Item Value Reference Range Comments MAGNESIUM (BEAKER) (test akux=966) 2.4 mg/dL 1.6-2.6 COMPREHENSIVE METABOLIC [id number] 06:41:00* Test Item Value Reference Range Comments TOTAL PROTEIN (BEAKER) (test bfxz=994) 7.0 gm/dL 6.0-8.3 ALBUMIN (BEAKER) (test hkgx=7006) 4.5 g/dL 3.5-5.0 ALKALINE PHOSPHATASE (BEAKER) (test jafo=277) 50 U/L 40-150 BILIRUBIN TOTAL (BEAKER) (test ekac=433) 1.0 mg/dL 0.2-1.2 SODIUM (BEAKER) (test xrtu=586) 141 meq/L 136-145 POTASSIUM (BEAKER) (test cemq=272) 4.2 meq/L 3.5-5.1 CHLORIDE (BEAKER) (test wbmh=887) 108 meq/L 98-107 CO2 (BEAKER) (test ucds=877) 24 meq/L 22-29 BLOOD UREA NITROGEN (BEAKER) (test hojt=563) 17 mg/dL 7-21 CREATININE (BEAKER) (test mnnu=862) 0.92 mg/dL 0.57-1.25 GLUCOSE RANDOM (BEAKER) (test dovs=872) 96 mg/dL 70-105 CALCIUM (BEAKER) (test tnwo=463) 9.5 mg/dL 8.4-10.2 AST (SGOT) (BEAKER) (test cabr=745) 16 U/L 5-34 ALT (SGPT) (BEAKER) (test ritc=252) 16 U/L 6-55 EGFR (BEAKER) (test ptxt=1231) 84 mL/min/1.73 sq m ESTIMATED GFR IS NOT ACCURATE CREATININE CLEARANCE IN PREDICTING GLOMERULAR FILTRATION RATE. ESTIMATED GFR IS NOT APPLICABLE FOR DIALYSIS PATIENTS. [id number] 06:18:00* Test Item Value Reference Range Comments PARTIAL THROMBOPLASTIN TIME (BEAKER) (test fktd=892) 25.5 seconds 22.5-36.0 PROTHROMBIN TIME/[id number] 06:17:00* Test Item Value Reference Range Comments PROTIME (BEAKER) (test zwmq=283) 14.7 seconds 11.7-14.7 INR (BEAKER) (test cnzp=429) 1.2 <=5.9 RECOMMENDED COUMADIN/WARFARIN INR THERAPY RANGESSTANDARD DOSE: 2.0 - 3.0 Inclu rayne: PROPHYLAXIS for venous thrombosis, systemic embolization; TREATMENT for atlon ous thrombosis and/or pulmonary embolus.HIGH RISK: Target INR is 2.5-3.5 for pat ients with mechanical heart valves.CBC W/PLT COUNT & AUTO [id number] 06:14:00* Test Item Value Reference Range Comments WHITE BLOOD CELL COUNT (BEAKER) (test ebtm=491) 6.2 K/ L 3.5-10.5 RED BLOOD CELL COUNT (BEAKER) (test iwmz=924) 4.96 M/ L 4.63-6.08 HEMOGLOBIN (BEAKER) (test hqpr=427) 14.5 GM/DL 13.7-17.5 HEMATOCRIT (BEAKER) (test hyzd=181) 46.1 % 40.1-51.0 MEAN CORPUSCULAR VOLUME (BEAKER) (test fffg=795) 92.9 fL 79.0-92.2 MEAN CORPUSCULAR HEMOGLOBIN (BEAKER) (test wvvg=262) 29.2 pg 25.7-32.2 MEAN CORPUSCULAR HEMOGLOBIN CONC (BEAKER) (test swhc=955) 31.5 GM/DL 32.3-36.5 RED CELL DISTRIBUTION WIDTH (BEAKER) (test awni=374) 14.0 % 11.6-14.4 PLATELET COUNT (BEAKER) (test fovm=637) 238 K/CU MM 150-450 MEAN PLATELET VOLUME (BEAKER) (test eymp=281) 12.3 fL 9.4-12.4 NUCLEATED RED BLOOD CELLS (BEAKER) (test pygx=363) 0 /100 WBC 0-0 NEUTROPHILS RELATIVE PERCENT (BEAKER) (test ukwu=815) 57 % LYMPHOCYTES RELATIVE PERCENT (BEAKER) (test ciae=633) 29 % MONOCYTES RELATIVE PERCENT (BEAKER) (test tybt=317) 11 % EOSINOPHILS RELATIVE PERCENT (BEAKER) (test aonj=778) 2 % BASOPHILS RELATIVE PERCENT (BEAKER) (test kgev=916) 1 % NEUTROPHILS ABSOLUTE COUNT (BEAKER) (test sfva=575) 3.56 K/ L 1.78-5.38 LYMPHOCYTES ABSOLUTE COUNT (BEAKER) (test qino=291) 1.78 K/ L 1.32-3.57 MONOCYTES ABSOLUTE COUNT (BEAKER) (test kjzf=831) 0.71 K/ L 0.30-0.82 EOSINOPHILS ABSOLUTE COUNT (BEAKER) (test owgq=189) 0.11 K/ L 0.04-0.54 BASOPHILS ABSOLUTE COUNT (BEAKER) (test pnvr=942) 0.05 K/ L 0.01-0.08 IMMATURE GRANULOCYTES-RELATIVE PERCENT (BEAKER) (test izuj=4822) 0 % 0-1 CT, HEART, [id number] 17:48:00Reason for Exam:->afibAddendum BeginsREPORT STATUS:A Addendum: I have reviewed the nonvascular findings and concur with the findings issued by Dr. Sanchez in his report. Signed: Roxanna Camacho MDReport Verified Date/Time: 10/25/2017 17:48:11 Reading Location: [facility] P048 Angio Body Reading RoomAddendum EndsFINAL REPORT CT angiography of the pulmonary veins, 25 Oct 2017 I NDICATION: This is a 57 years old male with history of atrial fibrillation pres ented here for pulmonary vein ostial mapping. This study is performed in an atte mpt to avoid invasive procedure. TECHNIQUE: Spiral acquisition during intraveno us contrast administration using a Siemens multislice cardiac CT scanner without prospective ECG triggering. Multiplanar reconstructions were performed interac tively by the interpreting physician using an independent ([employer]) workstation. Please refer to the contrast sheet scanned in the [employer] system for the amount and route of contrast given. This exam was performed according to our departmental dose-optimisation programme, which includes automated exposure control, adjustme nt of the mA and/or kV according to patient size and/or use of iterative reconst ruction technique. Dose modulation, iterative reconstruction, and/or weight base d adjustment of the mA/kV was utilized to reduce the radiation dose to as low as reasonably achievable. FINDINGS: VASCULAR: The pericardium appears normal. No pericardial effusion is identified. The central pulmonary artery is minimally pr ominent. The mid ascending thoracic aorta is mildly ectatic measure 4.1 x 3.9 cm in diameter. The aortic root is normal in calibre. Thereafter, the transverse a rch and descending thoracic aorta is also normal in course and calibre. No ather osclerosis is seen. The arch vessel branching pattern is normal, and the origins of the arch branch vessels are all widely patent. The cardiac chambers demonstr ate normal atrioventricular and ventriculoarterial concordance, and systemic and pulmonary venous return. The left ventricle is normal in size, and no abnormal masses are identified. The coronary artery origins are normal. No obvious blayne nary artery calcification is seen in the nondilated data set. Left atrial promin ence is present. No thrombus is visualized in the left atrial appendage. Pulmona ry vein morphology is normal with pairs of pulmonary veins on each side of the l eft atrium. There is no evidence for pulmonary vein stenosis. Quantitative pulmo nary vein ostial mapping (measured utilizing MPR analysis) is as follows: Pulmon jun vein Major axis Minor axis Cross-sectional area Right upper 19 mm 12 mm 1.9 ms5Bbbbi middle 10 mm 8 mm 0. hu8Ywknj lower 18 mm 17 mm 2.3 oq7Wlup upper 18 mm 14 mm 1.9 cm2L eft lower 21 mm 16 mm 2.7 cm2 NON-VASCULAR: The visualised thyr oid gland appears unremarkable. There could be tiny hypodensity identified at im age 3 in the left thyroid lobe, less than 1 cm in size, therefore not clinically significant. The chest wall and mediastinum appears normal. No significant mak opathy is identified in the mediastinum, except for some tiny lymph nodes, consi dered nonspecific in nature. In the lung windows, no obvious endobronchial lesi on is seen, and no pleural effusion is identified. No suspicious pulmonary nodul e is seen. Limited images of the upper abdomen reveals no gross abnormality. Sut ure material is identified along the stomach indicating prior GI surgery. No acu te bony pathology is seen except for the presence of some degenerative changes. Tiny sclerotic focus identified in the peripheral aspect of the right rib, image 22 and 23, statistically represent tiny bone islands. The limited images of the upper abdomen reveal no significant abnormalities of the visualized organs. IMP RESSIONS: 1. The left atrium is prominent. The left atrial appendage is well seen, and no thrombus is identified. No obvious coronary artery calcification is identified in the nondilated data set. 2. Pulmonary vein morphology is normal with pairs of pulmonary veins bilaterally. A tiny right middle lobe pulmonary ve in is present. There is no evidence for pulmonary vein stenosis. Quantitative pu lmonary vein ostial mapping is as noted above. 3. Mild ectasia is identified in the mid ascending thoracic aorta, measure 4.1 x 3.9 cm. 4. No acute pulmonary pathology. 5. An addendum will be dictated regarding the non-vascular findings by the Stenotype Machine Operator Radiologist. Signed: Javier Sanchez MDReport Verified Date/T robyn: 10/25/2017 11:33:31 Reading Location: [place] [address] Cardiology MRI Elec tronically signed by: ROXANNA CAMACHO M.D. on 10/25/2017 05:48 PM CBC (HEMOGRAM ONLY)2017-10-25 10:13:00* Test Item Value Reference Range Comments WHITE BLOOD CELL COUNT (BEAKER) (test xpdx=198) 6.7 K/ L 3.5-10.5 RED BLOOD CELL COUNT (BEAKER) (test zkpt=466) 4.86 M/ L 4.63-6.08 HEMOGLOBIN (BEAKER) (test uwxe=897) 14.4 GM/DL 13.7-17.5 HEMATOCRIT (BEAKER) (test tttd=942) 45.4 % 40.1-51.0 MEAN CORPUSCULAR VOLUME (BEAKER) (test roir=240) 93.4 fL 79.0-92.2 MEAN CORPUSCULAR HEMOGLOBIN (BEAKER) (test lizz=867) 29.6 pg 25.7-32.2 MEAN CORPUSCULAR HEMOGLOBIN CONC (BEAKER) (test zmuo=127) 31.7 GM/DL 32.3-36.5 RED CELL DISTRIBUTION WIDTH (BEAKER) (test bbft=467) 13.8 % 11.6-14.4 PLATELET COUNT (BEAKER) (test qsjv=712) 215 K/CU MM 150-450 MEAN PLATELET VOLUME (BEAKER) (test ephq=266) 12.8 fL 9.4-12.4 NUCLEATED RED BLOOD CELLS (BEAKER) (test jead=465) 0 /100 WBC 0-0 BASIC METABOLIC [id number] 09:36:00* Test Item Value Reference Range Comments SODIUM (BEAKER) (test pfpi=165) 143 meq/L 136-145 POTASSIUM (BEAKER) (test lhlj=970) 5.2 meq/L 3.5-5.1 CHLORIDE (BEAKER) (test xaar=464) 107 meq/L 98-107 CO2 (BEAKER) (test zsap=454) 27 meq/L 22-29 BLOOD UREA NITROGEN (BEAKER) (test uxqh=853) 18 mg/dL 7-21 CREATININE (BEAKER) (test vswu=635) 0.94 mg/dL 0.57-1.25 GLUCOSE RANDOM (BEAKER) (test owjr=424) 102 mg/dL 70-105 CALCIUM (BEAKER) (test dsli=223) 9.9 mg/dL 8.4-10.2 EGFR ([employer]) (test ngvk=0484) 82 mL/min/1.73 sq m ESTIMATED GFR IS NOT ACCURATE CREATININE CLEARANCE IN PREDICTING GLOMERULAR FILTRATION RATE. ESTIMATED GFR IS NOT APPLICABLE FOR DIALYSIS PATIENTS. PROTHROMBIN TIME/[id number] 08:57:00* Test Item Value Reference Range Comments PROTIME ([employer]) (test ajmh=612) 14.6 seconds 11.7-14.7 INR ([employer]) (test qxyf=550) 1.1 <=5.9 RECOMMENDED COUMADIN/WARFARIN INR THERAPY RANGESSTANDARD DOSE: 2.0 - 3.0 Inclu rayne: PROPHYLAXIS for venous thrombosis, systemic embolization; TREATMENT for alton ous thrombosis and/or pulmonary embolus.HIGH RISK: Target INR is 2.5-3.5 for pat ients with mechanical heart valves.
[2018-07-10 08:45] VITALS: BP 116/74
--- NOTE | 2018-07-29 11:33 | Operative Report ---
DATE OF PROCEDURE: 07/10/2018 SURGEON: Axel Adair MD PREOPERATIVE DIAGNOSIS: Hematuria. POSTOPERATIVE DIAGNOSIS: Hematuria. OPERATIONS PERFORMED: 1. Cystourethroscopy with bilateral ureteral catheterization and retrograde ureteropyelography. 2. Interpretation of retrograde ureteropyelography. 3. Supervision of fluoroscopy, no radiologist present. ANESTHESIA: General. COMPLICATIONS: None. CLINICAL SUMMARY: Rodney Vela is a 58-year-old man with hematuria. He is brought for the above procedure. He is aware of risks of bleeding, infection, injury to adjacent structures, and need for additional procedures, and elected to proceed. PROCEDURE IN DETAIL: Informed consent was verified. Rodney Vela was properly identified, taken to the operating room, and placed on the cystoscopy table in supine position. Anesthesia was uneventfully begun. The patient was then carefully and gently repositioned in the dorsal lithotomy position with all pressure points well padded. His genitalia were prepared and draped in usual sterile fashion. A 22.5-Kazakh cystoscope sheath with a visual obturator in place was atraumatically inserted into the patient's urethra. It was guided down the urethra it was remarkable for some tortuosity and some wide caliber stricture disease and I do not believe this is clinically significant. We passed through the normal sphincteric region and went into the prostate bed where there were 2 unusual bands that extended proximally from the verumontanum toward the bladder neck. These might be variants of posterior urethral valves that never materialized and never caused obstruction. Nevertheless, there were 2 unusual folds that we encountered. The prostate bed was visually obstructed by BPH, there was an elevated median bar that was causing obstruction of bladder neck. We entered the patient's bladder, which exhibited grade 1 trabeculations, but no tumors, no stones, and no suspicious lesions were identified. An 8-Kazakh catheter was used to cannulate each ureter and retrograde ureteropyelograms were performed. Interpretation of Retrograde Ureteropyelography: Contrast was instilled in a retrograde fashion bilaterally. There were no tumors, no stones, no diverticula. Unobstructed drainage was observed bilaterally fluoroscopically. Some J-hooking was noted. The patient's bladder was drained. The cystoscope was withdrawn. Belladonna and Opium suppository was placed revealing a 25 g prostate that is smooth, nonfunctional without any nodules. The patient was then uneventfully reversed from anesthesia and taken to recovery room in stable condition. There were no complications to the procedure. The patient tolerated the procedure well. Plans will be to follow the patient up in the office, at which point in time, we will plan on performing uroflowmetry and bladder ultrasonography. Axel MD MELISSA Adair/DIONNA /[id number]
== END | disposition home or self-care (01) ==
LOC: OR 06:24
PROVIDERS: ATTEND Urology
DX: R31.9 Hematuria, unspecified (principal); N36.8 Other specified disorders of urethra; N40.1 Benign prostatic hyperplasia with lower urinary tract symptoms; N13.8 Other obstructive and reflux uropathy; N32.89 Other specified disorders of bladder; N32.0 Bladder-neck obstruction; R35.1 Nocturia; N28.1 Cyst of kidney, acquired; G47.33 Obstructive sleep apnea (adult) (pediatric); I48.91 Unspecified atrial fibrillation; I10 Essential (primary) hypertension; E66.9 Obesity, unspecified; Z01.810 Encounter for preprocedural cardiovascular examination; Z01.812 Encounter for preprocedural laboratory examination; Z79.02 Long term (current) use of antithrombotics/antiplatelets; Z79.82 Long term (current) use of aspirin; Z96.651 Presence of right artificial knee joint; Z68.41 Body mass index [BMI] 40.0-44.9, adult; Z84.1 Family history of disorders of kidney and ureter; Z80.42 Family history of malignant neoplasm of prostate
CPT/HCPCS: 36415; 52005; 74420; 80048; 85025; 93005; C1758; J0696; J1100; J2001; J2250; J2405; J2704; J3490; Q9967